=== PATIENT | female | born 1995 | race Caucasian/White ===

== ENCOUNTER → 2017-06-29 14:09 | Outpatient (CLI) | payer OTHER, SELFPAY ==
[2017-07-05 13:58] LABS: HPV Reflexed? NOT INDICATED
== END ==
PROVIDERS: Family Provider Family Medicine; PCP Family Medicine; Visit Provider Obstetrics & Gynecology
DX: Z12.4 Encounter for screening for malignant neoplasm of cervix (principal)
CPT/HCPCS: 88175; G0145

== ENCOUNTER → 2017-07-10 10:58 | Outpatient (CLI) | payer OTHER, SELFPAY ==
--- NOTE | 2017-07-10 11:21 | VDUE_ITS ---
Reason For Study: RUE swelling Right Proximal Right jugular vein is spontaneous, widely patent, phasic, with no intraluminal echogenicity noted. Right subclavian vein is spontaneous, widely patent, phasic, with no intraluminal echogenicity noted. Right Lower Arm Right radial vein is compressible. Right ulnar vein is compressible. Right Arm Right axillary vein is spontaneous, patent, phasic, competent, compressible and demonstrates augmentation. Right brachial vein is compressible. Right cephalic vein is compressible. Right basilic vein is compressible. < Interpretation Summary Deep veins of the right upper extremity are patent and compressible segmentally. There is no evidence of deep vein thrombosis. The superficial veins of the right upper extremity, the basilic and cephalic veins, are patent and compressible. There is no evidence of right upper extremity superficial thrombophlebitis involving the veins imaged. Ordering Physician: Tera Carson Performed By: Saniya Tiwari RVT
== END ==
PROVIDERS: Family Provider Family Medicine; PCP Family Medicine; Visit Provider Family Medicine
DX: M79.89 Other specified soft tissue disorders (principal)
CPT/HCPCS: 93971

== ENCOUNTER → 2017-07-12 09:23 | Outpatient (CLI) | payer OTHER, SELFPAY ==
--- NOTE | 2017-07-12 09:55 | RAD_ITS ---
STUDY: X-RAY CHEST REASON FOR EXAM: Female, 21 years old. Bilateral upper extremity swelling. TECHNIQUE: PA and lateral views of the chest. COMPARISON: None. FINDINGS: The lungs are clear and expanded. Scattered calcified granulomas. There is no demonstrated pleural abnormality. Normal size heart. Normal mediastinum and willard. Normal visualized pulmonary arteries. Normal visualized aortic arch and descending thoracic aorta. Normal visualized thoracic spine. Normal visualized ribs, clavicles, and shoulders. There is no demonstrated abnormality of the visualized soft tissue structures of the upper abdomen. RAD/Chest PA and Lateral IMPRESSION: Normal x-ray examination of the chest. Electronically Signed: Cosme Alford MD at 15:43 EST Tel [phone], Service support ,
[2017-07-12 12:21] LABS: Absolute Lymphocyte Count 1.93 X10^3/ul (0.83-4.51); Absolute Neutrophil Count 2.6 X10^3/uL (2.0-7.7); Basophil# 0.03 X10^3/uL; Basophil% 0.6 % (0-1); Eosinophil# 0.08 X10^3/uL; Eosinophils% 1.6 % (0-5); Hemoglobin 12.4 g/dl (12.0-15.0); Lymphocyte # 1.93 X10^3/ul (4.0); Lymphocyte % 39.1 % (19-41); Mean Corp Hgb Conc 32.6 g/gl (32-36); Mean Corpuscular Hgb 28.6 pg (27.0-32.0); Mean Corpuscular Volume 87.6 fL (81-99); Mean Platelet Vol. 10.5 fl (6.2-12.0); Monocyte% 6.1 % (0-10); Neutrophil # 2.58 X10^3/uL (2.7-7.7); Neutrophil % 52.4 % (47-70); Platelet Count 239 K/mm3 (150-450); RBC Distribution Width CV 13.2 % (11.6-14.6); RBC Distribution Width SD 40.9 fl (35.1-43.9); Red Blood Count 4.34 M/mm3 (4.2-5.4); White Blood Count 4.9 K/mm3 (4.4-11.0)
[2017-07-12 12:29] LABS: POSITIVE COUNT NO; POSITIVE DIFFERENTIAL NO; POSITIVE MORPHOLOGY NO
[2017-07-12 12:38] LABS: Erythrocyte Sedimentation Rate 9 mm/hr (0-20)
[2017-07-12 12:50] LABS: Vitamin D,25 Hydroxy 14.8 ng/mL (19.95-100.01)
[2017-07-12 13:00] LABS: Anion Gap 7 (5-15); BUN 23 mg/dL (7-18); BUN/Creat Ratio 30.3 RATIO (10-20); CPK Total, Creatine Kinase 1462 U/L (26-192); CRP < 2.90 mg/L (0.0-3.0); Calcium,Total 9.2 mg/dL (8.5-10.1); Chloride 104 mmol/L (98-107); Creatinine, Serum 0.76 mg/dL (0.55-1.02); EST Glomerular Filtration Rate 100 mL/min (>60); Est Glom Filt Rate - Afr Amer 121 mL/min (>60); Glucose 87 mg/dL (74-106); Sodium Level 139 mmol/L (136-145); Thyroid Stim Hormone (TSH) 1.62 uIU/mL (0.358-3.74)
[2017-07-13 15:01] LABS: ANTINUCLEAR ANTIBODIES DIRECT Negative (Negative)
== END ==
PROVIDERS: Family Provider Family Medicine; PCP Family Medicine; Visit Provider Family Medicine
DX: M79.89 Other specified soft tissue disorders (principal); M79.1 Myalgia
CPT/HCPCS: 71046; 80048; 82306; 82550; 84443; 85025; 85652; 86038; 86140

== ENCOUNTER → 2017-07-17 09:17 | Outpatient (CLI) | payer OTHER, SELFPAY ==
[2017-07-17 10:28] LABS: CPK Total, Creatine Kinase 147 U/L (26-192)
== END ==
PROVIDERS: Family Provider Family Medicine; PCP Family Medicine; Visit Provider Family Medicine
DX: R74.8 Abnormal levels of other serum enzymes (principal)
CPT/HCPCS: 36415; 82550

== ENCOUNTER → 2017-11-03 13:15 | Outpatient (CLI) | payer OTHER, SELFPAY ==
--- NOTE | 2017-11-03 13:15 | DT_ITS ---
This patient was seen during an EMR downtime October 30, 2017 - November 06, 2017. This patient may have a combination of paper and electronic documentation or all paper documentation. All documentation is viewable within the e-chart portion of [facility] for each patient visit.
[2017-11-07 13:14] LABS: Chlamydia Trachomatis by PCR Negative (Negative); Neisserai gonorrhoeae by PCR Negative (Negative); Probe Check PASS; Sample Adequacy Control PASS; Specimen Processing Control PASS
== END ==
PROVIDERS: Visit Provider Obstetrics & Gynecology
DX: Z11.3 Encounter for screening for infections with a predominantly sexual mode of transmission (principal)
CPT/HCPCS: 87491; 87591

== ENCOUNTER → 2017-11-14 11:55 | Outpatient (CLI) | payer OTHER, SELFPAY ==
[2017-11-14 13:56] LABS: Absolute Lymphocyte Count 1.61 X10^3/ul (0.83-4.51); Basophil# 0.01 X10^3/uL; Basophil% 0.1 % (0-1); Eosinophil# 0.06 X10^3/uL; Eosinophils% 0.8 % (0-5); Hematocrit 36.1 % (37-47); Hemoglobin 12.2 g/dl (12.0-15.0); Lymphocyte # 1.61 X10^3/ul (4.0); Lymphocyte % 22.6 % (19-41); Mean Corp Hgb Conc 33.8 g/gl (32-36); Mean Corpuscular Hgb 28.6 pg (27.0-32.0); Mean Corpuscular Volume 84.5 fL (81-99); Mean Platelet Vol. 10.5 fl (6.2-12.0); Monocyte# 0.43 X10^3/uL; Neutrophil # 5.01 X10^3/uL (2.7-7.7); Neutrophil % 70.4 % (47-70); Platelet Count 219 K/mm3 (150-450); RBC Distribution Width CV 12.9 % (11.6-14.6); RBC Distribution Width SD 39.1 fl (35.1-43.9); Red Blood Count 4.27 M/mm3 (4.2-5.4); White Blood Count 7.1 K/mm3 (4.4-11.0)
[2017-11-14 13:57] LABS: Color, Urine Yellow (Yellow); Glucose, Dipstick Normal (Normal); Ketone-Dipstick Negative (Negative); Leukocyte Esterase-Dipstick Negative /ul (Negative); Nitrite-Dipstick Negative (Negative); Occult Blood-Urine Negative /ul (Negative); POSITIVE COUNT NO; POSITIVE DIFFERENTIAL NO; POSITIVE MORPHOLOGY NO; Protein-Dipstick Negative (Negative); Urine Bilirubin Dipstick Negative (Negative); Urine Clarity Sl. Cloudy (Clear); Urine Urobilinogen Normal (Normal)
[2017-11-14 14:02] LABS: COTININE Drug Screen Negative (<200 ng/mL)
[2017-11-14 14:09] LABS: Amphetamine Urine VISTA NEGATIVE (<1000 ng/mL); Barbiturate Urine VISTA NEGATIVE (< 200 ng/mL); Benzodiazepine Urine VISTA NEGATIVE (< 200 ng/mL); Cocaine Urine VISTA NEGATIVE (< 300 ng/mL); Ecstacy Urine VISTA NEGATIVE (< 500 ng/mL); Methadone Urine VISTA NEGATIVE (< 300 ng/mL); PCP Urine VISTA NEGATIVE (< 25 ng/mL); THC Urine VISTA NEGATIVE (< 50 ng/mL); Vista UDS pH Range 6
[2017-11-14 14:15] LABS: Thyroid Stim Hormone (TSH) 0.35 uIU/mL (0.358-3.74)
[2017-11-15 09:45] LABS: HIV - WCH Non-Reactive (Nonreactive); Rubella IgG 230.4 IU/mL; Vitamin D,25 Hydroxy 24.8 ng/mL (29.95-100.01)
[2017-11-15 12:13] LABS: HEPATITIS B SURFACE AG Negative (Negative); Hep C Antibodies <0.1 s/co ratio (0.0-0.9)
[2017-11-17 03:47] LABS: Prenatal RPR NONREACTIVE (NONREACTIVE)
== END ==
PROVIDERS: Visit Provider Obstetrics & Gynecology
DX: Z34.81 Encounter for supervision of other normal pregnancy, first trimester (principal)
CPT/HCPCS: 36415; 80307; 81002; 82306; 84443; 85025; 86703; 86762; 86803; 87340

== ENCOUNTER → 2018-01-31 11:21 | Outpatient (CLI) | payer OTHER, SELFPAY | PROVIDERS: Family Provider Family Medicine; PCP Family Medicine; Visit Provider Obstetrics & Gynecology | DX: Z36.9 Encounter for antenatal screening, unspecified (principal) | CPT/HCPCS: 76805 ==

== ENCOUNTER → 2018-03-30 11:39 | Outpatient (CLI) | payer OTHER, SELFPAY ==
--- NOTE | 2018-03-30 11:41 | US_ITS ---
STUDY: SECOND AND THIRD TRIMESTER OBSTETRICAL ULTRASOUND - LIMITED REASON FOR EXAM: Female, 22 years old. Follow-up for renal dilatation. LMP: September 14, 2017. PRIOR ULTRASOUND: Comparison is made with prior ultrasound dated January 31, 2018. TECHNIQUE: Transabdominal TECHNICAL QUALITY: Adequate. FINDINGS: There is a single intrauterine fetus. The fetus is in a breech presentation. There is demonstrated cardiac activity with a heart rate of 146 bpm. There is a normal amniotic fluid volume. The largest amniotic fluid pocket measures 4.9 cm x 5.5 cm. The amniotic fluid index (DEANDRE) is 13.74 cm. The placenta is fundal in location. There are Grade 0 placental changes. The cervix measures 3.5 cm in length. BIOMETRY: BPD: 7.26 cm: 29 weeks, 1 days HC: 26.79 cm: 29 weeks, 2 days AC: 23.94 cm: 28 weeks, 2 days FL: 5.32 cm: 28 weeks, 2 days Age by LMP: 28 weeks, 1 days. CORDELIA by LMP: June 21, 2018. age by prior US: 29 weeks, 0 days. CORDELIA by prior US: June 15, 2018. age by current US: 28 weeks, 6 days. CORDELIA by current US: June 16, 2018. Estimated weight: 1220 grams, +/- 178 grams, 46 percentile. Gender: Female Once again, there is a mild degree of bilateral renal pelvis dilatation. It presently measures 3.8 mm on the left and 3.5 mm on the right. It previously measured 5 mm bilaterally. US/OB Limited With Biometrics IMPRESSION: Single live uterine gestation with mean gestational age of 29 weeks. The measurements obtained today fall within normal expected range. Mild residual bilateral renal pelvis dilatation. This as improved as compared to prior study. Electronically Signed: Cosme Alford MD at 8:20 EST Tel [phone], Service support ,
== END ==
PROVIDERS: Family Provider Family Medicine; PCP Family Medicine; Referring Provider Obstetrics & Gynecology; Visit Provider Obstetrics & Gynecology
DX: Z36.2 Encounter for other antenatal screening follow-up (principal)
CPT/HCPCS: 76816

== ENCOUNTER → 2018-04-02 08:59 | Outpatient (CLI) | payer OTHER, SELFPAY ==
[2018-04-02 10:40] LABS: Hematocrit 32.4 % (37-47); Hemoglobin 10.5 g/dl (12.0-15.0); Mean Corp Hgb Conc 32.4 g/gl (32-36); Mean Corpuscular Hgb 29.3 pg (27.0-32.0); Mean Corpuscular Volume 90.5 fL (81-99); Platelet Count 183 K/mm3 (150-450); RBC Distribution Width CV 13.2 % (11.6-14.6); RBC Distribution Width SD 43.3 fl (35.1-43.9); Red Blood Count 3.58 M/mm3 (4.2-5.4); White Blood Count 11.7 K/mm3 (4.4-11.0)
[2018-04-02 10:41] LABS: Glucose Challenge Gest 1H 50g 104 mg/dL (70-140)
[2018-04-02 10:48] LABS: Scan Indicated on CBC? Y/N NO
[2018-04-02 10:59] LABS: Vitamin D,25 Hydroxy 17.2 ng/mL (29.95-100.01)
[2018-04-02 16:49] LABS: Ferritin 23 ng/mL (8-252)
== END ==
PROVIDERS: Visit Provider Obstetrics & Gynecology
DX: Z34.83 Encounter for supervision of other normal pregnancy, third trimester (principal)
CPT/HCPCS: 36415; 82306; 82728; 82950; 85027

== ENCOUNTER → 2018-05-02 12:25 | Outpatient (CLI) | payer OTHER, SELFPAY ==
--- NOTE | 2018-05-02 12:29 | US_ITS ---
STUDY: SECOND AND THIRD TRIMESTER OBSTETRICAL ULTRASOUND - LIMITED REASON FOR EXAM: Female, 22 years old. Routine survey. LMP: September 14, 2017 PRIOR ULTRASOUND: Comparison is made with prior examination dated March 30, 2018 and January 31, 2018. TECHNIQUE: Transabdominal TECHNICAL QUALITY: Adequate. FINDINGS: There is a single intrauterine fetus. The fetus is in a cephalic presentation. There is demonstrated cardiac activity with a heart rate of 150 bpm. There is a normal amniotic fluid volume. The largest amniotic fluid pocket measures 4.5 cm. The amniotic fluid index (DEANDRE) is 9.4 cm. The placenta is fundal in location. There are Grade 1 placental changes. The cervix measures 3.1 cm in length. BIOMETRY: BPD: 8.76 cm: 35 weeks, 3 days HC: 31.55 cm: 35 weeks, 3 days AC: 28.63 cm: 32 weeks, 5 days FL: 6.36 cm: 33 weeks, 0 days Age by LMP: 32 weeks, 6 days. CORDELIA by LMP: Generate 2018. age by prior US: 33 weeks, 4 days. CORDELIA by prior US: June 16, 2018. age by current US: 34 weeks, 1 days. CORDELIA by current US: June 12, 2018. Estimated weight: 2149 grams, +/- 314 grams, 53 percentile. Gender: Indeterminant Stable bilateral pelvic dilatation. The right measures 3.9 mm and the left measures 3.8 mm. US/OB Limited With Biometrics IMPRESSION: Single live intrauterine gestation with a mean gestational age of 33 weeks and 4 days. The measurements obtained today following the normal expected range. Mild renal pelvic dilatation. Electronically Signed: Cosme Alford MD at 15:55 EST Tel [phone], Service support ,
== END ==
PROVIDERS: Family Provider Family Medicine; PCP Family Medicine; Referring Provider Obstetrics & Gynecology; Visit Provider Obstetrics & Gynecology
DX: Z36.3 Encounter for antenatal screening for malformations (principal)
CPT/HCPCS: 76816

== ENCOUNTER → 2018-05-31 13:49 | Outpatient (CLI) | payer OTHER, SELFPAY | PROVIDERS: Family Provider Family Medicine; PCP Family Medicine; Visit Provider Obstetrics & Gynecology | DX: Z36.85 Encounter for antenatal screening for Streptococcus B (principal) | CPT/HCPCS: 87081 ==

== ENCOUNTER 2018-06-21 19:05 | Inpatient (IN) | payer OTHER, SELFPAY ==
[2018-06-21] MEDS: Lactated Ringers 1,000 ML 50 ML IV ×2 (19:30→20:25)
[2018-06-21 19:39] VITALS: BMI 29.9
[2018-06-21 19:46] LABS: Hematocrit 34.3 % (37-47); Hemoglobin 11.3 g/dl (12.0-15.0); Mean Corp Hgb Conc 32.9 g/gl (32-36); Mean Corpuscular Hgb 29.7 pg (27.0-32.0); Mean Corpuscular Volume 90.3 fL (81-99); Mean Platelet Vol. 9.9 fl (6.2-12.0); Platelet Count 151 K/mm3 (150-450); RBC Distribution Width CV 13.5 % (11.6-14.6); RBC Distribution Width SD 44.2 fl (35.1-43.9); White Blood Count 13.3 K/mm3 (4.4-11.0)
[2018-06-21 19:49] LABS: Scan Indicated on CBC? Y/N NO
--- NOTE | 2018-06-21 19:55 | PCM.HP.OB ---
- Problem List (1) 40 weeks gestation of Status: Acute History Date of Admission: 06/21/18 Final CORDELIA: 06/21/18 Final CORDELIA Source: US <20 weeks Gestational age: 40 Weeks History of this : This is a 22 year-old, G [], P [], at 40 weeks gestational age. Allergies No Known Allergies Allergy (Verified 06/21/18 19:56) Home Medications: Home Medications Prenatabs FA 1 tab PO DAILY 09/19/16 Ferrous Sulfate 325 mg PO DAILY@0800 06/21/18 Docusate Sodium [Colace] 100 mg PO BID PRN PRN #60 capsule 06/22/18 Ibuprofen 600 mg PO TID PRN #30 tablet 06/22/18 multivitamin Smoking Status: Never smoker Alcohol: None Number of Fetus(es): 1 Heart Tracing: Category I TOCO Analysis: Contractions 4/10 min History Labs: Mom's Labs & Results 06/21/18 06/21/18 19:30 19:30 WBC 13.3 H RBC 3.80 L Hgb 11.3 L Hct 34.3 L MCV 90.3 MCH 29.7 MCHC 32.9 RDW 13.5 RDW Differential 44.2 H Plt Count 151 MPV 9.9 Blood Type B POSITIVE Antibody Screen NEGATIVE Course Did the patient receive Yes care? Labs Blood Type: B RH: POSITIVE RPR/VDRL/Syphilis Nonreactive Rubella status Immune HbSAg Negative Date Done: 11/14/17 Chlamydia Negative Gonorrhea Negative HIV/AIDS Non-Reactive Group B Strep: Negative Current Obstetrical History Gestational Diabetes No Incompetent Cervix No Infertility No IUGR No Macrosomia No Hypertension/Pre-eclampsia No Placenta Previa/Abruption No PTL/PROM No Uterine anomaly No Oligohydramnios No Polyhydramnios No Multiple gestation No Past Medical History Asthma No Diabetes No Hypertension No Heart disease No Mitral valve prolapse No Neurologic/Seizure disorder/ No Migraines Kidney disease No Liver disease No Varicosities No Clotting disorders/Hx of DVT No Thyroid Dysfunction No Other medical diseases No Psychiatric disorders No Major trauma No Abnormal PAP smear No Sleep apnea No Mammogram in the last 2 years No Social History Marital Status: Alleged father Arnie Hx Smoking No Smoking Status Never smoker How long have you used n/a substances (years)? Expected Infant Delivery Method: Spontaneous Vaginal Review of Systems HEENT: Denies: Visual Changes Cardiovascular: Denies: Chest Pain Respiratory: Denies: Shortness of Breath Gastrointestinal: Reports: Nausea Gynecological: Reports: - - + contractions, no leaking of fluid. Denies: Vaginal bleeding Neurological: Denies: Headaches Physical Exam Vitals: Vital Signs Temp Pulse Resp BP Pulse Ox 98.4 F 80 18 100/60 97 06/23/18 11:44 06/23/18 11:44 06/23/18 11:44 06/23/18 11:44 06/23/18 11:44 General: Alert, Oriented x3, Cooperative, No apparent distress HEENT: Atraumatic, Normocephalic Cardiovascular: Regular rate, Regular Rhythm Lungs: Clear to auscultation, Normal air movement Abdomen: Soft, Non Tender, Non-Distended, Gravid Extremities:: No edema Neurological: Neuro grossly intact BORDER MEASURER: Normal external genitalia Estimated gestational size: Appropriate for gestational size Presentation: Cephalic Cervix Dilation (cm): 5 Station: -3 Effacement (%): 80 Assessment/Plan All Active Problems 40 weeks gestation of (Acute) (spontaneous vaginal delivery) (Acute) 22yo admitted in labor, Cat I FHR -Expectant management -Epidural per patient request
[2018-06-21] MEDS: fentaNYL-bupivacaine (epidural) 100 ML BAG EPIDURAL (20:33)
--- NOTE | 2018-06-21 20:54 | PCM.PN.BLA ---
Progress Note LABOR PROGRESS NOTE Comfortable with epidural. AVSS GEN - NAD, AAO x 3 FHR 135, moderate variability, + accelerations, no decelerations TOCO 2-3/10 min SVE 8/90/-1, cephalic, ROP A/P:22yo @ 40wga in active labor, Cat I FHR -Amniotomy performed with pink tinged fluid -Maternal and statuses reassuring -Continue in labor
[2018-06-21] MEDS: Ondansetron 4 MG/2 ML Vial IV (23:52)
[2018-06-22] MEDS: Oxytocin 30 units/NS 500 ml 30 UNITS/500 ML IV.SOLN 334 UNITS IV (00:08)
--- NOTE | 2018-06-22 00:14 | PCM.OB.VAG ---
- Problem List (1) 40 weeks gestation of Status: Acute (2) (spontaneous vaginal delivery) Status: Acute Vaginal Delivery Maternal Presentation: Active Labor Amniotic Membrane Rupture Type: Artificial Rupture of Membrane time: 204806/21/18 Amniotic Fluid Description: Clear Final CORDELIA: 06/21/18 Final CORDELIA Source: US <20 weeks Gestational age: 40 Weeks and 1 Days Date of Procedure: 06/22/18 Pre-Operative Diagnosis: 40 1/7wga Post-Operative Diagnosis: 40 1/7wga Surgery/ Procedure Performed: Spontaneous Vaginal Delivery Anesthesiologist: Bee Shaikh Type of Anesthesia: Epidural Description of Procedure: Patient was FD/+3 station with Cat II FHR with moderate variability. She pushed over approximately 20 minutes to deliver a vigorous female infant in BRITANY over and intact perineum. The was placed on the maternal abdomen and further attended by nursery personnel. The cord was doubly clamped and cut at approximately 5 minutes of life. The placenta delivered spontaneously and appeared intact on inspection. Perineum intact. Sponge count correct. Presentation: Vertex Placental Delivery Description: Spontaneous Placenta Disposition: [facility] Cord Vessel Description: 3 Vessels Nuchal Cord Compression: Without compression Cord Entanglement: None Drain: Noe to straight drain Estimated Blood Loss: 100 ml A gender: Female (1 minute): 9 (5 minute): 9 Episiotomy Description: None Laceration: None Medications given after delivery: IV Pitocin
--- NOTE | 2018-06-22 00:20 | DCINST_ITS ---
Discharge Diet: No Restrictions Discharge Activity: Return to Normal Activity, May Shower May resume sexual activity in: 4-6 weeks Lifting Restrictions: 20 lb Call your doctor if you observe: Fever of 101 or Higher, Inability to urinate, Inability to have a bowel movement, Using more than one pad per hour, Shortness of breath, Calf discomfort, Uncontrolled pain Additional Instructions: If you experience any of the following, contact your healthcare provider. * Bleeding that soaks a pad every hour for 2 hours * Fever 100.4 or higher * Unrelieved incision or abdominal pain * Swelling, redness, discharge or bleeding from your incision or episiotomy site * Your incision begins to separate * Problems urinating (including inability to urinate or burning while urinating). * Visual changes * Severe headache * Flu-like symptoms * Pain or redness in one of both of your breasts * Pain, warmth, tenderness or swelling in your legs, especially the calf area * Frequent nausea and vomiting * Symptoms of depression or anxiety If you experience any of the following, call 911 or go to the nearest Emergency Room. * Chest pain * Problems breathing * Seizure activity * Partial or complete paralysis of a body part, slurred speech, weakness or drooping of the face, or a sudden inability to walk or hold your balance Allergies/Adverse Reactions: Allergies No Known Allergies Allergy (Verified 06/21/18 19:56) Medications to take at Discharge Prenatabs FA 1 tab PO DAILY 09/19/16 Ferrous Sulfate 325 mg PO DAILY@0800 06/21/18 Docusate Sodium [Colace] 100 mg PO BID PRN PRN #60 capsule 06/22/18 Ibuprofen 600 mg PO TID PRN #30 tablet 06/22/18 The following prescriptions were given: Docusate Sodium [Colace] 100 mg PO BID PRN PRN #60 capsule PRN Reason: Constipation Ibuprofen 600 mg PO TID PRN #30 tablet PRN Reason: Pain Please Follow Up With: Rachelle Hoffman MD When: 6 weeks Primary Care Physician: Moy Carson MD [Primary Care Provider] - Test Results: Test results from this visit will be discussed in further detail at your follow- up appointment, if applicable.
[2018-06-22] MEDS: Oxytocin 30 units/NS 500 ml 30 UNITS/500 ML IV.SOLN 167 UNITS IV (00:38)
[2018-06-22 05:00] VITALS: BP 114/67; PULSE 88; RESP 16; TEMP 37.1
[2018-06-22 08:20] VITALS: BP 121/72; PULSE 73; RESP 14; TEMP 36.6; O2SAT 99
[2018-06-22] MEDS: Prenatal Vits Tablet 1 TABLET PO (08:20)
[2018-06-22] MEDS: Ibuprofen 600 MG Tablet PO ×2 (08:20→20:31)
--- NOTE | 2018-06-22 08:20 | PCM.PN.OB ---
Patient Problems: Active and Suspected Problems 40 weeks gestation of (Acute) Subjective: Slept a bit last night. Infant latched well. Denies significant pain. Has moderate lochia. Objective: AVSS - Physical Exam General: Alert, Oriented x3, Cooperative, No apparent distress HEENT: Atraumatic, Normocephalic Lungs: Clear to auscultation, Normal air movement Cardiovascular: Regular rate, Regular Rhythm, Normal S1, Normal S2 Abdomen: Soft, Non Tender, Non-Distended, - - Fundus firm and nontender Extremities: No edema, No Calf Tenderness Neurological: Neuro grossly intact Psych/Mental Status: Normal Affect, Appropriate, Alert and oriented to time, place, person, mood and affect Vital Signs Temp Pulse Resp BP 98.7 F 88 16 114/67 06/22/18 05:00 06/22/18 05:00 06/22/18 05:00 06/22/18 05:00 Oxygen Delivery Method Room Air Weight: 76.7 kg Body Mass Index (BMI) 29.9 Laboratory Tests Past 24 Hrs 06/21/18 06/21/18 19:30 19:30 WBC 13.3 H RBC 3.80 L Hgb 11.3 L Hct 34.3 L MCV 90.3 MCH 29.7 MCHC 32.9 RDW 13.5 RDW Differential 44.2 H Plt Count 151 MPV 9.9 Blood Type B POSITIVE Antibody Screen NEGATIVE Medical Necessity - Tobacco Use Smoking Status: Never smoker Assessment/Plan All Active Problems 40 weeks gestation of (Acute) (spontaneous vaginal delivery) (Acute) 22yo s/p early this am doing well. -Rh positive - -Routine care
[2018-06-22] MEDS: Senna/Docusate Sodium 1 Tablet PO (08:21)
[2018-06-22 12:00] VITALS: BP 109/53; PULSE 68; RESP 16; TEMP 36.6; O2SAT 97
[2018-06-22 16:10] VITALS: BP 110/55; PULSE 67; RESP 16; TEMP 36.6; O2SAT 96
--- NOTE | 2018-06-22 16:10 | NURSING ---
pt using lasinoh cream prn for tender nipples
[2018-06-22 20:21] VITALS: BP 124/49; PULSE 58; RESP 18; TEMP 37; O2SAT 96
[2018-06-23 00:29] VITALS: BP 117/59; PULSE 58; RESP 16; TEMP 36.6; O2SAT 96
[2018-06-23 03:20] VITALS: BP 111/58; PULSE 81; RESP 18; TEMP 36.2; O2SAT 98
[2018-06-23] MEDS: Prenatal Vits Tablet 1 TABLET PO (07:21)
[2018-06-23] MEDS: Ibuprofen 600 MG Tablet PO (07:21)
[2018-06-23] MEDS: Senna/Docusate Sodium 1 Tablet PO (07:22)
[2018-06-23 07:26] VITALS: BP 97/61; PULSE 81; RESP 16; TEMP 36.8; O2SAT 96
--- NOTE | 2018-06-23 10:06 | PN.OBGYN_ITS ---
Patient Problems: Active and Suspected Problems 40 weeks gestation of (Acute) Subjective: PPD#1 Doing well today, Minimal pain Nursing well. Would like to go home today if possible. Objective: sitting up in bed nursing baby - Physical Exam General: Alert, Oriented x3, Cooperative, No apparent distress HEENT: Atraumatic Neurological: Cranial nerves II-XII grossly intact Psych/Mental Status: Normal Affect Vital Signs Temp Pulse Resp BP Pulse Ox 98.3 F 81 16 97/61 96 06/23/18 07:26 06/23/18 07:26 06/23/18 07:26 06/23/18 07:06/23/18 07:26 Oxygen Delivery Method Room Air Weight: 76.7 kg Body Mass Index (BMI) 29.9 Intake and Output for Last 24 Hours 06/21/18 06/22/18 06/23/18 23:59 23:59 23:59 Output Total 650 / 650 Balance -650 / -650 Medical Necessity - Tobacco Use Smoking Status: Never smoker Assessment/Plan All Active Problems 40 weeks gestation of (Acute) (spontaneous vaginal delivery) (Acute) PPD#1 Stable pp. Requests dischg to home today. Dischg home. RTO in 6 wk for postpa rtum check, prn sooner.
[2018-06-23 11:44] VITALS: BP 100/60; PULSE 80; RESP 18; TEMP 36.9; O2SAT 97
--- NOTE | 2018-06-28 16:34 | NURSING ---
Unable to leave a voicemail. Candice JANE
== END 2018-06-23 12:40 | disposition home or self-care (01) | DRG 807 ==
LOC: WPOUT 19:33
PROVIDERS: Admitting Provider Obstetrics & Gynecology; Family Provider Family Medicine; PCP Family Medicine; Referring Provider Obstetrics & Gynecology; Visit Provider Obstetrics & Gynecology
DX: O99.013 Anemia complicating pregnancy, third trimester (principal); Z37.0 Single live birth; D50.9 Iron deficiency anemia, unspecified; Z3A.40 40 weeks gestation of pregnancy
CPT/HCPCS: 59025; 59050; 85027; 86850; 86900; 99218; J7120; G0378; J2405

== ENCOUNTER → 2018-07-31 08:31 | Outpatient (CLI) | payer OTHER, SELFPAY ==
--- NOTE | 2018-07-31 08:35 | US_ITS ---
STUDY: ABDOMINAL ULTRASOUND REASON FOR EXAM: Female, 22 years old. Abdominal pain and weight loss TECHNIQUE: Transabdominal ultrasound was performed with real-time and static rae scale imaging. TECHNICAL QUALITY: Adequate. COMPARISON: None. FINDINGS: Liver: The liver measures 15.2 cm. There is normal echogenicity of the liver. The bile ducts are within normal limits. There is no demonstrated mass lesion. Portal vein measurement: Gallbladder: Normal distended gallbladder. The gallbladder wall measures 1.4 mm. There is a negative sonographic Zepeda's sign. There is no pericholecystic fluid. There are no gallstones. Common Bile Duct (C.B.D.): The common bile duct measures 2.2 mm. Pancreas: Normal size of the head, body and tail of the pancreas. There is normal echogenicity of the pancreas. There is no demonstrated pancreatic mass or cyst. Right Kidney: Normal size of the right kidney. The right kidney measures 10.8 x 5.4 x 4.8 cm. Normal renal cortex. The right cortex measures 1.8 cm. There is no demonstrated renal mass or cyst. There is no right hydronephrosis. Multiple images of the umbilical region were obtained. No focal masses or fluid collections are identified. US/Abdomen Limited IMPRESSION: Gallbladder and common bile duct are unremarkable. No focal lesions are identified near the umbilicus. Electronically Signed: Kehinde Ken MD at 23:55 EST Tel , Service support ,
== END ==
PROVIDERS: Family Provider Family Medicine; PCP Family Medicine; Referring Provider Obstetrics & Gynecology; Visit Provider Obstetrics & Gynecology
DX: R10.9 Unspecified abdominal pain (principal)
CPT/HCPCS: 76705

== ENCOUNTER → 2019-10-18 11:06 | Outpatient (CLI) | payer OTHER, SELFPAY ==
[2019-10-18 11:53] LABS: Color, Urine Yellow (Yellow); Glucose, Dipstick Normal (Normal); Ketone-Dipstick Negative (Negative); Leukocyte Esterase-Dipstick Negative /ul (Negative); Nitrite-Dipstick Negative (Negative); Occult Blood-Urine Negative /ul (Negative); Protein-Dipstick Negative (Negative); Specific Gravity, Urine 1.015 (1.002-1.030); Urine Bilirubin Dipstick Negative (Negative); Urine Clarity Clear (Clear); Urine Urobilinogen Normal (Normal)
[2019-10-18 11:57] LABS: Absolute Lymphocyte Count 1.74 X10^3/uL (0.83-4.51); Absolute Neutrophil Count 4.8 X10^3/uL (2.0-7.7); Basophil# 0.03 X10^3/uL; Basophil% 0.4 % (0-1); Eosinophil# 0.04 X10^3/uL; Eosinophils% 0.6 % (0-5); Hematocrit 36.9 % (37-47); Lymphocyte # 1.74 X10^3/ul (4.0); Lymphocyte % 24.2 % (19-41); Mean Corp Hgb Conc 32.5 g/dL (32-36); Mean Corpuscular Hgb 28.5 pg (27.0-32.0); Mean Corpuscular Volume 87.6 fL (81-99); Mean Platelet Vol. 10.7 fl (6.2-12.0); Monocyte# 0.53 X10^3/uL; Monocyte% 7.4 % (0-10); NRBC Flagged by Analyzer 0 % (0-5); Neutrophil # 4.84 X10^3/uL (2.7-7.7); Neutrophil % 67.1 % (47-70); Platelet Count 208 K/mm3 (150-450); RBC Distribution Width CV 12.2 % (11.6-14.6); RBC Distribution Width SD 39.1 fl (35.1-43.9); Red Blood Count 4.21 M/mm3 (4.2-5.4); White Blood Count 7.2 K/mm3 (4.4-11.0)
[2019-10-18 12:01] LABS: Amphetamine Urine VISTA NEGATIVE (<1000 ng/mL); Barbiturate Urine VISTA NEGATIVE (< 200 ng/mL); Benzodiazepine Urine VISTA NEGATIVE (< 200 ng/mL); Cocaine Urine VISTA NEGATIVE (< 300 ng/mL); Ecstacy Urine VISTA NEGATIVE (< 500 ng/mL); Methadone Urine VISTA NEGATIVE (< 300 ng/mL); PCP Urine VISTA NEGATIVE (< 25 ng/mL); THC Urine VISTA NEGATIVE (< 50 ng/mL); Vista UDS pH Range 7
[2019-10-18 12:12] LABS: Thyroid Stim Hormone (TSH) 0.54 uIU/mL (0.358-3.74)
[2019-10-18 12:45] LABS: HIV - WCH Non-Reactive (Nonreactive); Hepatitis B Surface Antigen Non-Reactive (Nonreactive); Hepatitis C Antibody Non-Reactive (Nonreactive); Rubella IgG 280.4 IU/mL; Vitamin D,25 Hydroxy 30.6 ng/mL
[2019-10-18 14:19] LABS: Chlamydia Trachomatis by PCR Negative (Negative); Neisserai gonorrhoeae by PCR Negative (Negative); Probe Check PASS; Sample Adequacy Control PASS; Specimen Processing Control PASS
[2019-10-24 03:36] LABS: Prenatal RPR NONREACTIVE (NONREACTIVE)
== END ==
PROVIDERS: PCP Family Medicine; Visit Provider Obstetrics & Gynecology
DX: Z11.3 Encounter for screening for infections with a predominantly sexual mode of transmission (principal); Z34.81 Encounter for supervision of other normal pregnancy, first trimester
CPT/HCPCS: 36415; 80307; 81002; 82306; 84443; 85025; 86703; 86762; 86803; 87340; 87491; 87591

== ENCOUNTER 2019-11-01 20:04 | Emergency (ER) | payer OTHER, SELFPAY ==
[2019-11-01 20:05] VITALS: BP 131/73; PULSE 70; RESP 18; TEMP 36.8; O2SAT 100; BMI 24.4
--- NOTE | 2019-11-01 20:51 | US_ITS ---
STUDY: FIRST TRIMESTER OBSTETRICAL ULTRASOUND REASON FOR EXAM: Female, 24 years old BLEEDING AT 9 WEEKS LMP: 08/26/2019 TECHNIQUE: Transvaginal TECHNICAL QUALITY: Adequate. PRIOR ULTRASOUND: Previous study of 05/02/2018 FINDINGS: There is visualization of a single gestational sac in a normal intrauterine position. The mean sac diameter (MSD) measures 4.31, indicating an estimated gestational age (EGA) of 10 weeks, 0 days. The gestational sac shape is within normal limits. There are 2 avascular anechoic regions adjacent to the gestational sac measuring 2.5 x 3.1 x 0.9 cm and 3.4 x 2.9 x 1.1 cm. There is a visualized yolk sac. The yolk sac measures 4.6 mm. The placenta is non-visualized. There is visualization of a live embryo. The crown-rump length (CRL) measures 3.32 cm, indicating an estimated gestational age (EGA) of 10 weeks, 2 days. There is demonstrated cardiac activity with a heart rate of 170 bpm. The estimated gestation age (EGA) by LMP is 9 weeks, 4 days. The estimated date of delivery (CORDELIA) by LMP is 06/01/2020. The estimated gestation age (EGA) by US is 10 weeks, 1 days. The estimated date of delivery (CORDELIA) by US is 05/28/2020. The uterus measures 12.6 x 9.9 x 6.2 cm.. There is no demonstrated uterine fibroid. The cervix is closed. The right ovary was not visualized. The left ovary measures 3.5 x 2.3 x 1.8 cm.. There is a left ovarian cyst measuring 2.1 x 1.6 x 1.3 cm. There is no visualized left adnexal mass or complex lesion. There is no fluid in the cul de sac. US/Transvaginal w/Preg US IMPRESSION: Single viable intrauterine of approximately 10 weeks 2 days gestational age by crown-rump length measurement. A heart rate of 170 bpm is noted. There are 2 anechoic avascular regions adjacent to the gestational sac measuring 2.5 x 3.1 x 0.9 cm and 3.4 x 2.9 x 1.1 cm respectively which may represent subchorionic bleeds. There is a left ovarian cyst measuring 2.1 x 1.6 x 1.3 cm. Electronically Signed: Jonatan Mccloud MD at 21:54 EDT , Service support ,
[2019-11-01 20:59] LABS: Mucous, Urine 0 SEEN /hpf (<or=2+)
[2019-11-01 21:01] LABS: Absolute Lymphocyte Count 2.42 X10^3/uL (0.83-4.51); Absolute Neutrophil Count 5.4 X10^3/uL (2.0-7.7); Basophil# 0.02 X10^3/uL; Basophil% 0.2 % (0-1); Eosinophil# 0.08 X10^3/uL; Eosinophils% 0.9 % (0-5); Hematocrit 34.1 % (37-47); Hemoglobin 11.3 g/dL (12.0-15.0); Lymphocyte # 2.42 X10^3/ul (4.0); Lymphocyte % 28.5 % (19-41); Mean Corp Hgb Conc 33.1 g/dL (32-36); Mean Corpuscular Volume 87.7 fL (81-99); Mean Platelet Vol. 10.2 fl (6.2-12.0); Monocyte# 0.52 X10^3/uL; Monocyte% 6.1 % (0-10); NRBC Flagged by Analyzer 0 % (0-5); Neutrophil # 5.44 X10^3/uL (2.7-7.7); Neutrophil % 64.1 % (47-70); Platelet Count 218 K/mm3 (150-450); RBC Distribution Width CV 12.5 % (11.6-14.6); RBC Distribution Width SD 39.3 fl (35.1-43.9); Red Blood Count 3.89 M/mm3 (4.2-5.4); White Blood Count 8.5 K/mm3 (4.4-11.0)
[2019-11-01] MEDS: 0.9% Normal Saline 1,000 ML 1000 ML IV (21:01)
--- NOTE | 2019-11-01 21:02 | ED.VISSUMM ---
- ER Visit Summary Date of Service: 11/01/19 Chief Complaint: Vaginal bleeding History of Present Illness: The patient is a 24 F who presents with vaginal bleeding that began tonight. Patient states that when she urinated tonight she started passing some blood. Patient denies passing any clots or tissue. Patient states she was having some mild intermittent cramping but states this has resolved. Patient is approximately 9 weeks . Patient is 3 para 2. Patient does not know her blood type. Patient denies any fevers or chills. Patient denies any dysuria. Patient denies any back pain. Patient admits to some nausea and vomiting related to the but denies any worsening nausea or vomiting. Physical Examination: Vital signs are stable. Patient is afebrile. Patient is in no acute distress. Oral mucosa is pink and moist. Neck is supple. Trachea is midline. There is no JVD noted. Heart was regular rate and rhythm. Lungs are clear and equal bilaterally. Abdomen is soft. Bowel sounds are normal. There is no tenderness. There is no rebound or guarding noted. Skin is warm dry. Cranial nerves II through XII are intact. There are no focal motor or sensory deficits noted. Extremities are intact. There is no calf tenderness or edema. Test Results: CBC showed a hemoglobin of 11.3 hematocrit 34.1. Urinalysis showed bloody urine with occult blood of 250 and greater than 100 red blood cells. There is no evidence of urinary tract infection. Quantitative hCG was 17883. Blood type was B+. Pelvic ultrasound showed single viable intrauterine at 10 weeks 2 days with a heart rate of 170. There are 2 anechoic regions adjacent to the gestational sac which may represent subchorionic bleeds. There is also a left ovarian cyst. This was interpreted by the radiologist and reviewed by myself. Emergency Department Course and Treatment: Patient was feeling better on reevaluation. Patient was still having some bleeding but states it is somewhat improving. Patient was advised to return if she is passing any tissue or clots. Patient was instructed return if she is saturating more than 2 pads an hour. Patient was instructed to have pelvic rest. Patient was instructed to follow-up with Dr. Shaquille Powers in 3 to 5 days. Patient understood and was agreeable with the plan. All questions were answered. Disposition: Discharge home Impression: Threatened This note was generated with Dragon dictation software. It may contain incorrect words, spelling, and punctuation that were not noted in review of the chart prior to signing ED Disposition - Plan for ED Patient: Disposition: Home or Assisted Living Diagnosis: Threatened spontaneous Instructions: ED Possible Miscarriage Threatened Referrals: Moy Carson MD [Primary Care Provider] - Rachelle Steve MD [STAFF PHYSICIAN] - 3-5 Days
[2019-11-01 21:11] LABS: Color, Urine Red (Yellow); Glucose, Dipstick Normal (Normal); Ketone-Dipstick 5 mg/dl (Negative); Leukocyte Esterase-Dipstick Negative /ul (Negative); Nitrite-Dipstick Negative (Negative); Occult Blood-Urine 250 /ul (Negative); Protein-Dipstick 500 mg/dl (Negative); Specific Gravity, Urine 1.015 (1.002-1.030); Urine Bilirubin Dipstick Negative (Negative); Urine Clarity Cloudy (Clear); Urine Urobilinogen Normal (Normal)
[2019-11-01 21:18] LABS: White Blood Cells 5-10 SEEN /hpf (0-5)
[2019-11-01 21:19] LABS: Bacteria RARE /hpf (None Seen); Red Blood Cells-Urine > 100 SEEN /hpf (0-5); Squamous Epithelial Cells - UA 0-5 SEEN /hpf (5-10)
[2019-11-01 21:40] LABS: hCG Titer Quant., Serum 51398 mIU/mL (1-3)
[2019-11-01 23:34] VITALS: BP 102/66; PULSE 69; RESP 18; O2SAT 100
== END 2019-11-01 23:35 | disposition home or self-care (01) ==
PROVIDERS: Emergency Provider Emergency Medicine; PCP Family Medicine
DX: O20.0 Threatened abortion (principal); N83.202 Unspecified ovarian cyst, left side; Z3A.10 10 weeks gestation of pregnancy; O21.9 Vomiting of pregnancy, unspecified
CPT/HCPCS: 76817; 81001; 84702; 85025; 86900; 86901; 96360; 99283; J7030; A4216

== ENCOUNTER → 2019-12-16 07:56 | Outpatient (CLI) | payer OTHER, SELFPAY ==
--- NOTE | 2019-12-16 08:00 | US_ITS ---
STUDY: SECOND AND THIRD TRIMESTER OBSTETRICAL ULTRASOUND-Limited REASON FOR EXAM: Female, 24 years old followup- bleeding LMP: 08/26/2019 TECHNIQUE: Transabdominal TECHNICAL QUALITY: Adequate. PRIOR ULTRASOUND: 11/01/2019 FINDINGS: There is a single intrauterine fetus. The fetus is in a transverse lie with the head on the maternal right side. There is demonstrated cardiac activity with a heart rate of 147 bpm. There is a normal amniotic fluid volume. The largest amniotic fluid pocket measures 3.4 cm. The placenta is posterior in location and is not low lying. There are Grade 0 placental changes. The cervix measures 3.9 cm in length. The bilateral adnexal regions are normal. BIOMETRY: BPD: 3.5 cm: 16 weeks, 4 days HC: 13 cm: 16 weeks, 4 days AC: 10.9 cm: 16 weeks, 5 days FL: 2.3 cm: 16 weeks, 5 days age by current US: 16 weeks, 4 days. CORDELIA by current US: 05/28/2020. Estimated weight: 167 grams, +/- 25 grams, 78 %. age by prior US: 16 weeks, 4 days. CORDELIA by prior US: 05/28/2020. Age by LMP: 16 weeks, 0 days. CORDELIA by LMP: 06/01/2020. Incidental note made of a hypoechoic area along the anterior gestational sac/uterus measuring 5.8 x 5.0 x 1.0 cm likely resolving subchorionic hemorrhage. US/OB Limited With Biometrics IMPRESSION: Single live intrauterine at 16 weeks, 4 days by current ultrasound with CORDELIA of 05/28/2020. Heart rate of 147 bpm. Normal growth noted since the previous study. Likely resolving 5.8 x 5.0 x 1.0 cm subchorionic hemorrhage along the anterior gestational sac. Continued close follow-up recommended to assure resolution Electronically Signed: Gatito Epperson MD at 9:09 EDT , Service support ,
== END ==
PROVIDERS: PCP Family Medicine; Referring Provider Obstetrics & Gynecology; Visit Provider Obstetrics & Gynecology
DX: O26.859 Spotting complicating pregnancy, unspecified trimester (principal); Z3A.16 16 weeks gestation of pregnancy
CPT/HCPCS: 76816

== ENCOUNTER → 2020-01-13 12:51 | Outpatient (CLI) | payer OTHER, SELFPAY ==
--- NOTE | 2020-01-13 12:55 | US_ITS ---
STUDY: SECOND AND THIRD TRIMESTER OBSTETRICAL ULTRASOUND REASON FOR EXAM: Female, 24 years old ANATOMY LMP: 08/26/2019 TECHNIQUE: Transabdominal TECHNICAL QUALITY: Adequate. PRIOR ULTRASOUND: 12/16/2019 FINDINGS: There is a single intrauterine fetus. The fetus is moving during the exam. There is demonstrated cardiac activity with a heart rate of 135 bpm. There is a normal amniotic fluid volume. The largest amniotic fluid pocket measures 5.8 cm. . The placenta is posterior in location and is not low lying. There are Grade 1 placental changes. The cervix measures 3.3 cm in length. The bilateral adnexal regions are normal. BIOMETRY: BPD: 4.43 cm: 19 weeks, 2 days HC: 17.66 cm: 20 weeks, 1 days AC: 15.72 cm: 20 weeks, 6 days FL: 3.26 cm: 20 weeks, 1 days age by current US: 20 weeks, 0 days. CORDELIA by current US: 06/01/2019. Estimated weight: 355 grams, +/- 53 grams, 63 %. age by prior US: 20 weeks, 4 days. CORDELIA by prior US: 05/28/2020. Stable known subchorionic hemorrhage measuring 6.1 x 4.7 x 0.3 cm. ANATOMY: Gender: Male Cranium: Normal lateral ventricles. Normal choroid plexus. Normal cerebellum. Normal cisterna magna. Normal face, nose and lips. Chest: Normal 4-chamber heart. Abdomen/Pelvis: Normal diaphragm. Normal stomach. Normal abdominal wall. Normal cord insertion. Normal 3 vessel cord. Normal kidneys. Right renal pelvis measures 2.4 mm, left 3.0 mm Normal bladder. Spine: Normal cervical spine. Normal thoracic spine. Normal lumbar spine. Normal sacrum. Extremities: Normal bilateral upper extremities. Normal bilateral lower extremities. US/OB Anatomy Scan IMPRESSION: Single live intrauterine at 20 weeks, 0 days by current ultrasound CORDELIA of 06/01/2020. Heart rate at 135 bpm. No new suspicious findings. There is a known anterior uterine wall hematoma measuring 6.1 x 4.7 x 0.3 cm. Electronically Signed: Gatito Epperson MD at 15:40 EDT , Service support ,
== END ==
PROVIDERS: PCP Family Medicine; Referring Provider Obstetrics & Gynecology; Visit Provider Obstetrics & Gynecology
DX: Z34.82 Encounter for supervision of other normal pregnancy, second trimester (principal)
CPT/HCPCS: 76805

== ENCOUNTER 2020-02-25 08:02 | Outpatient (RCR) | payer OTHER, SELFPAY | END 2020-02-26 23:59 | LOC: EMPH 08:02 | PROVIDERS: PCP Family Medicine; Visit Provider Family Medicine Geriatric Medicine | DX: Z11.59 Encounter for screening for other viral diseases (principal) | CPT/HCPCS: 87635; U0003 ==

== ENCOUNTER → 2020-03-09 07:58 | Outpatient (CLI) | payer OTHER, SELFPAY ==
--- NOTE | 2020-03-09 08:00 | US_ITS ---
STUDY: SECOND AND THIRD TRIMESTER OBSTETRICAL ULTRASOUND REASON FOR EXAM: Female, 24 years old GROWTH LMP: 08/26/2019. TECHNIQUE: Transabdominal TECHNICAL QUALITY: Adequate. PRIOR ULTRASOUND: Comparison is made with prior examination dated 01/13/2020. FINDINGS: There is a single intrauterine fetus. The fetus is in a cephalic presentation. There is demonstrated cardiac activity with a heart rate of 147 bpm. There is a normal amniotic fluid volume. The largest amniotic fluid pocket measures 3.0 cm. The amniotic fluid index (DEANDRE) is 9.8 cm. The placenta is posterior in location and is not low lying. There are Grade 1 placental changes. The cervix measures 3.2 cm in length. The bilateral adnexal regions are normal. The previously seen anterior uterine wall hematoma is not seen at this time. BIOMETRY: BPD: 7.4 cm: 29 weeks, 4 days HC: 27.4 cm: 29 weeks, 6 days AC: 23.5 cm: 27 weeks, 5 days FL: 5.2 cm: 27 weeks, 4 days CI: 80% FL/BPD: 70% FL/HC: FL/AC: 22% HC/AC: 1.17 age by current US: 28 weeks, 4 days. CORDELIA by current US: 05/28/2020. Estimated weight: 1169 grams, +/- 173 grams, 35 %. age by prior US: 28 weeks, 0 days. CORDELIA by prior US: 06/01/2020. Age by LMP: 28 weeks, 0 days. CORDELIA by LMP: 06/01/2020. ANATOMY: Gender: Male Cranium: Normal lateral ventricles. Normal choroid plexus. Normal cerebellum. Normal cisterna magna. Normal face, nose and lips. Chest: Normal 4-chamber heart. Abdomen/Pelvis: Normal diaphragm. Normal stomach. Normal abdominal wall. Normal cord insertion. Normal 3 vessel cord. There is evidence of a nuchal umbilical cord. Minimal fullness of the renal pelves measuring 3 mm. Normal bladder. Spine: Normal cervical spine. Normal thoracic spine. Normal lumbar spine. Normal sacrum. Extremities: Normal bilateral upper extremities. Normal bilateral lower extremities. US/OB Limited With Biometrics IMPRESSION: Single live intrauterine gestation with mean gestational age of 28 weeks. The measurements obtained today following within the normal expected range. Electronically Signed: Cosme Alford, at 15:05 EDT , Service support ,
== END ==
PROVIDERS: PCP Family Medicine; Referring Provider Obstetrics & Gynecology; Visit Provider Obstetrics & Gynecology
DX: O46.90 Antepartum hemorrhage, unspecified, unspecified trimester (principal); Z3A.28 28 weeks gestation of pregnancy
CPT/HCPCS: 76816

== ENCOUNTER → 2020-03-13 08:54 | Outpatient (CLI) | payer OTHER, SELFPAY ==
[2020-03-13 11:24] LABS: Hematocrit 33.2 % (37-47); Hemoglobin 10.6 g/dL (12.0-15.0); Mean Corp Hgb Conc 31.9 g/dL (32-36); Mean Corpuscular Hgb 29.7 pg (27.0-32.0); Mean Platelet Vol. 10.2 fl (6.2-12.0); Platelet Count 159 K/mm3 (150-450); RBC Distribution Width CV 12.9 % (11.6-14.6); RBC Distribution Width SD 43.9 fl (35.1-43.9); Red Blood Count 3.57 M/mm3 (4.2-5.4); White Blood Count 7.9 K/mm3 (4.4-11.0)
[2020-03-13 11:29] LABS: Glucose Challenge Gest 1H 50g 97 mg/dL (70-140)
[2020-03-13 11:37] LABS: Vitamin D,25 Hydroxy 37.6 ng/mL
== END ==
PROVIDERS: PCP Family Medicine; Visit Provider Obstetrics & Gynecology
CPT/HCPCS: 36415; 82306; 82950; 85027

== ENCOUNTER 2020-03-26 10:27 | Outpatient (RCR) | payer OTHER, SELFPAY | END 2020-03-28 23:59 | LOC: EMPH 10:27 | PROVIDERS: PCP Family Medicine; Visit Provider Family Medicine Geriatric Medicine | DX: Z03.818 Encounter for observation for suspected exposure to other biological agents ruled out (principal) | CPT/HCPCS: 87426 ==

== ENCOUNTER 2020-04-22 11:36 | Outpatient (RCR) | payer OTHER, SELFPAY | END 2020-04-27 23:59 | LOC: EMPH 11:36 | PROVIDERS: PCP Family Medicine; Referring Provider Family Medicine Geriatric Medicine; Visit Provider Family Medicine Geriatric Medicine | DX: Z03.818 Encounter for observation for suspected exposure to other biological agents ruled out (principal) | CPT/HCPCS: 87426 ==

== ENCOUNTER → 2020-05-12 16:54 | Outpatient (CLI) | payer OTHER, SELFPAY | PROVIDERS: PCP Family Medicine; Visit Provider Obstetrics & Gynecology | DX: Z36.85 Encounter for antenatal screening for Streptococcus B (principal) | CPT/HCPCS: 87081 ==

== ENCOUNTER 2020-05-20 16:12 | Outpatient (RCR) | payer OTHER, SELFPAY | END 2020-05-28 23:59 | LOC: EMPH 16:12 | PROVIDERS: PCP Family Medicine; Referring Provider Family Medicine Geriatric Medicine; Visit Provider Family Medicine Geriatric Medicine | DX: Z03.818 Encounter for observation for suspected exposure to other biological agents ruled out (principal) | CPT/HCPCS: 87426 ==

== ENCOUNTER 2020-05-28 01:50 | Inpatient (IN) | payer OTHER, SELFPAY ==
[2020-05-28] VITALS (33 sets, daily range): BP systolic 99–135; BP diastolic 55–74; PULSE 52–113; RESP 14–18; TEMP 36.4–37.1; O2SAT 85–100; BMI 29.0
[2020-05-28] MEDS: Lactated Ringers 500 ML 999 ML IV (02:15)
[2020-05-28 02:26] LABS: Absolute Lymphocyte Count 2.68 X10^3/uL (0.83-4.51); Absolute Neutrophil Count 9.2 X10^3/uL (2.0-7.7); Basophil# 0.06 X10^3/uL; Basophil% 0.5 % (0-1); Eosinophil# 0.11 X10^3/uL; Eosinophils% 0.8 % (0-5); Hematocrit 34.7 % (37-47); Hemoglobin 11.1 g/dL (12.0-15.0); Lymphocyte # 2.68 X10^3/ul (4.0); Lymphocyte % 20.4 % (19-41); Mean Corpuscular Hgb 29.3 pg (27.0-32.0); Mean Corpuscular Volume 91.6 fL (81-99); Mean Platelet Vol. 10.2 fl (6.2-12.0); Monocyte# 0.84 X10^3/uL; Monocyte% 6.4 % (0-10); NRBC Flagged by Analyzer 0 % (0-5); Neutrophil # 9.24 X10^3/uL (2.7-7.7); Neutrophil % 70.5 % (47-70); Platelet Count 152 K/mm3 (150-450); RBC Distribution Width CV 13.2 % (11.6-14.6); RBC Distribution Width SD 43.7 fl (35.1-43.9); Red Blood Count 3.79 M/mm3 (4.2-5.4); White Blood Count 13.1 K/mm3 (4.4-11.0)
--- NOTE | 2020-05-28 02:40 | PCM.HP.OB ---
- Problem List (1) 39 weeks gestation of Status: Acute History Date of Admission: 05/28/20 Final CORDELIA: 05/25/20 Final CORDELIA Source: US <20 weeks Gestational age: 40 Weeks and 3 Days History of this : This is a 24 year-old, G [3], P [2], at 39 3/7 weeks gestational age. Allergies No Known Allergies Allergy (Verified 11/01/19 20:07) Home Medications: Home Medications Prenatabs FA 1 tab PO DAILY 09/19/16 Ferrous Sulfate 325 mg PO DAILY@0800 06/21/18 Docusate Sodium [Colace] 100 mg PO BID PRN PRN #60 capsule 06/22/18 Cholecalciferol (Vitamin D3) [Vitamin D3] 4,000 unit PO DAILY 11/01/19 Ondansetron [Ondansetron Odt] 4 mg PO Q8H PRN PRN 11/01/19 Famotidine [Pepcid] 20 mg PO BID 05/28/20 Smoking Status: Never smoker Alcohol: None NST - FHR Rate Baby A Baseline: 130 Variability:: Moderate Accelerations:: 15 x 15 Decelerations:: None NST Reactive:: Yes FHR Category:: Category I Uterine Activity:: 07/08 History Past Pregnancies: Labs 05/28/20 02:15 WBC 13.1 H RBC 3.79 L Hgb 11.1 L Hct 34.7 L MCV 91.6 MCH 29.3 MCHC 32.0 RDW Std Deviation 43.7 RDW Coeff of Lenora 13.2 Plt Count 152 MPV 10.2 Immature Gran % (Auto) 1.400 H Neut % (Auto) 70.5 H Lymph % (Auto) 20.4 Loíza % (Auto) 6.4 Eos % (Auto) 0.8 Baso % (Auto) 0.5 Absolute Neuts (auto) 9.2 H Absolute Lymphs (auto) 2.68 Nucleated RBC % 0 Labs: ACOG ANTEPARTUM RECORD - HISTORY AND PHYSICAL (05/28/2020) Name: SUGEY BLACK OB Physician: CARLEE Ronceverte's Physician: Lazaro Hoffman ...................................................................... : 1995 Age: 24 Address: [address] [place] [id number] Phone: H) [phone] (O) [phone] Insurance Carrier: [facility] [id number] Emergency Contact: CALI BLACK [phone] ...................................................................... Final CORDELIA: 06/01/20 By Ultrasound: 7 weeks 4 days PARITY: (G-Total Pregnancies P-Fullterm,Premature,Induced AB,Spont AB, Ectopics, Multiple,Living) CORDELIA CONFIRMATION: By LMP: 08/26/19 Initial Exam: 06/01/20 By First Ultrasound Exam: 05/29/20 Final CORDELIA: 06/01/20 BLOOD TYPE: AFP: 1 HR PG: GBS: Original Ordering Provider: Rachelle Hoffman JT Culture Group B Beta Streptococcus is not isolated. Original Ordering Provider: Rachelle Hoffman JT Culture Group B Beta Streptococcus is not isolated. Original Ordering Provider: Rachelle Powers JT Culture Group B Beta Streptococcus is not isolated. Rublla titer (>10 immune)-- Hepatatis B paul AG-- CULTURES:-- OB PROBLEM LIST: AFP and CF testing declined BOY COVID19 @ 32wga EPDS = 0 on 10/18/2019. Large subchorionic bleed - Growth scan at 28-32wga. 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 Illicit Drug Use - denies use of street drugs Sexual Activity - Residence - lives with Place of - [place], [place] Hours Worked - 36 h Spouse-Sig Other Name - Cali Spouse-Sig Other Occupation - [employer] - self Spouse-Sig Other Phone No - [phone] Children Name(s) - Kvng '17, Tiffany '19 PRIOR DELIVERY HISTORY DEL DATE GEST LAB WT LB WT OZ TYPE ANES LABOR TX 25 Jun 16 40 12 7 7 Vag Epidural No Nov 12 39 18 7 7 Vag Epidural No ANTEPARTUM FLOW CHART VISIT RTC FU F F NH U U DATE WK MD WKS HT PN HR M SS BP ED WT NH GL D EF ST __ ____ ___ __ __ ___ __ __ __ ___ __ __ __ ___ __ 29 Apr SHM 1 39 V + + 106/70 0 163 tr - 4 60 -3 Apr SHM 1 37 V + + 112/56 0 161 tr ne Apr SHM 1 35 V + + 130/64 0 162 tr tr 3 60 -3 02 Apr SHM 1 35 V + + 100/60 0 159 - - Mar SHM 2 33 V + + 108/56 0 159 - - Mar 27 SHM 2 29 ? + + 106/58 0 155 - - Mar 25 SHM 2 26 ? + + 90/70 0 154 tr - Feb 19 CH 4 23 + + 92/50 0 148 - - Jan 15 SHM 4 20 + + 104/60 0 141 tr - Dec 11 SHM 4 16 B + + 102/60 0 137 - - Nov 07 SHM 4 + - 104/58 0 135 tr - Nov 05 SHM 4 on O 100/58 0 137 ANTEPARTUM NOTE(S): May 26 2020: maverick beena, cervix check May 19 2020: May 12 2020: see note Apr 29 2020: bad heartburn and reflux Apr 17 2020: Mar 25 2020: Mar 13 2020: feeling well. Glucola drawn today. AM Feb 10 2020: Jan 15 2020: still having nausea, no vomiting, using Zofran prn Dec 17 2020: Nov 19 2020: FHT check Nov 03 2020: Bleeding & cramping this weekend COMPREHENSIVE ANTEPARTUM NOTE(S): May 26 2020: Shanae is here for a PNV. Good FM. No edema present. Sl cramping in lower abdomen. Denies ctx's. Occasional Uintah Zaragoza. Would like a cervix check today. MK May 19 2020: Sugey is here for PNV. Having BH CTX. Good FM. No edema noted. No LOF or vag discharge. Having some heartburn but able to eat and drink fluids without difficulty. Urine dipped tr and neg. No concerns for today. LSS May 18 2020: H taken to OB. tkg May 12 2020: Angelica is here for visit. She relates loose stools with use of Mylanta but ok by her as she has been constipated the whole prior to this. She does feel that she now has noticed increased issue with hemorrhoid. Using all the OTC but just not getting any improvement. She will have GBS today. LARC declined. Reviewed FM, SROM, and labor. LMT May 12 2020: Heartburn resolves with Mylanta, she takes this in the evenings as needed. However, she has more loose stool with worsening of hemorrhoid despite otc 1% hydrocortisone. Rx hydrocortisone 2.5% for hemorrhoid. GBS swab obtained. Apr 29 2020: Heartburn is pretty bad and feels burning in the back of her throat when she is laying down. She takes Pepcid daily. Considering adding Mylanta as she discussed with you. LMT Apr 29 2020: CEPHALIC, OA, consider US to confirm placement at 36-37wga. Reviewed GBS next visit. Reviewed IOL indications, pt not considering elective IOL at 39-40wga. 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 Notes mucus plug passed, no significant contractions. Denies vaginal bleeding or spotting. Apr 17 2020: Sugey is her for PNV. Reports + FM. She is doing well. No edema present to day. Medications and allergies reviewed. No complaints or concerns expressed today. LJW Apr 17 2020: Recently recovered from mild case of COVID19. Her also had it as well as one of the daughters. Denies residual sx. She has returned to work. Denies ctx, vaginal bleeding. Has good FM. US today confirms CEPHALIC. c/o worsened heartburn despite Pepcid. Will try Mylanta since failed tums previously. Bleeding, PTL precautions reviewed. Consider growth US in 4 weeks given COVID19 infection Mar 25 2020: Amy is her for 30 wks + 2 days. Reports + FM. She is doing well. No edema present to day. Medications and allergies reviewed today. No complaints or concerns expressed today. LJW Mar 25 2020: PTL, ROM, FM precautions. Discussed workplace precautions to prevent COVID19 exposure. Feb 11 2020: Sugey is her for her 24 wks +1 PNV today. Good FM. No edema present today. She is doing good with Zofran twice a day morning and evening. Glucola given today to have done at next visit.. Medications and allergies reviewed today. No questions or concerns expressed today. SAI Feb 11 2020: Reports +FM. FHR 148-155. Has been feeling a lot better lately. Baby is still laying transverse. Glucola given with instructions for next visit in 4 weeks. Will get US at the hospital in 4 weeks to look at grwoth and RACHAEL. Will then start every 2 week appts. - CH Jan 15 2020: Denies cramping, Uintah Zaragoza or bleeding/spotting. Feels well. Returned to work. Anatomy scan reviewed, wnl - MALE (as prior), 63rd%, placenta posterior. Subchorionic hematoma 6.1 x 4.7 x 0.3cm, overall stable. Ok for . Plan growth scan at 28-32wga. No further restrictions at this time. Uintah Zaragoza, PTL and bleeding precautions reviewed. Dec 18 2019: Sugey is her for her 16 wks +2 PNV today. Good FM, She is doing good with mild nausea, Zofran has helped the nausea. Spotting has stopped. She had US done at [facility] [place] 12/16/19. MSAFP/CF papers reviewed and signed today. Medications and allergies reviewed today. No questions or concerns expressed today. SAI Dec 18 2019: US 12/17/19 reviewed with appropriate interval growth, AGA, resolving anterior subchorionic hemorrhage 5.8 x 5.0 x 1cm. Bedside can today shows hematoma at prior specified site. Cervix appears 35mm transabdominally. Bleeding and cramping resolved x 1 week. Bleeding precautions again reviewed. US in 4 weeks for anatomy with growth, continue to monitor hematoma Dec 18 2019: Order faxed for 20 week comp u/s. LMT Nov 20 2019: Sugey is here for a PNV. Still having some nausea and fatigue. Spotting as well. NOB nurse requested her visit today for FHT check. MK Nov 20 2019: Continues with dark brown vaginal bleeding daily, light in flow. Mild cramping intermittently. Nausea manageable mostly, but vomiting x 1 this past week. Working q3rd weekend. US today shows living IUP, FHR 140 bpm, active fetus with large posterior perigestational bleed measuring 7 x 4cm in largest dimension. CRL 57.6mm c/w 12w2d. Bleeding precautions reviewed. Limit heavy lifting, pushing and pulling. No intercourse. Low impact and low intensity physical activity only. Growth US in 4 weeks. Nov 15 2019: TELEHEALTH NOB VISIT. Shanae is a 24 year old with an CORDELIA of 06/01/2020, current GA is 11 w 4 d. She reports that she continues to have dark brown vagina discharge with occasional stringy red clots, has not been feeling any cramping; RN reported this to Dr. Shaquille Powers and Shanae is to return next week for a visit/FHT check. Shanae is in agreement with this plan, and will call if bleeding becomes heavy, and/or if she starts to cramp more. Shanae states that she feels that as long as she takes Zofran, her nausea is better. Denies vomiting. Encouraged small frequent meals with protein included throughout the day, and adequate water hydration of at least one gallon of water per 24 hours. Discussed trying carb rich foods when nauseated. She states that she sometimes have to take Colace, but over all, constipation has not been a real problem with Zofran use. Shanae is an established patient with this practice., and she has no questions regarding practice patterns, and her labs have been collected. She resides with her , Cali, and their two young daughters. Past history updated. Shanae plans to deliver at [facility] [place] with a likely epidural, and she will breastfeed. Emergencies/danger signs to report, round ligament pain, reporting a suspected UTI, and common OTC medications approved/not approved for use during reviewed. She is a non-smoker, and denies use of drugs or ETOH. Genetic Screening form completed at her prior visit. AFP and CF testing declined on 10/18/2019, with consent signed as such. She states that she takes an OTC vitamin that contains DHA and tolerates this well. Shanae walks for exercise several times a week. 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 water/dietary/caloric needs reviewed, along with expected weight gain, limiting empty calories, limiting caffeine to one cup a day, and food safety for . She states that she understands all information provided to telephone NOB visit, and has no questions following same. AW New Nov 07 2019: Sugey states you and she had a discussion re: taking off work this coming weekend if needed. 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 Sugey went for a walk today, having dark brown bleeding, a little cramping and would prefer not to have to work this coming weekend. OK to write a note to be off 11/08 and 11/10/19. Nov 05 2019: Entry for 11/04/19: Shanae seen in ER on 11/02/19 for heavy vaginal bleeding, US there showed two perigestational hematomas and living IUP c/w dates. Shanae reports bleeding now brown and light. Mild cramping. US again shows living IUP, FHR 190 bpm. Single hematoma appreciated on transabdominal US. Advised lifting restrictions, low impact, low intensity activity only and pelvic rest. SAB si/sx reviewed. Shanae to call in next week with update. Plan for visit in 4 weeks with US. Nov 04 2019: Sugey presents here today with spouse for PNV with concerns regarding small amount bleeding and cramping that continues. Denies other concerns at this time. MARISSA Oct 18 2019: Shanae is here for missed menses appt. She relates LMP of 08/25, + UPT today in office, EDC 06/01/20. She is having mild all day nausea. She has not really tried anything as she does not throw up Reviewed adding Pepcid bid, Unisom at bedtime, B6 50 mg bid. Could consider trying seabands also. IF sx are not improving with OTC could consider adding Zofran or Phenergan. She has had 2 loose stools with some cramping since +UPT. Advised to watch this and if persists can have stool culture. Some GI upset is normal in early . She is asking about work? Should she be working. Advised work is fine as long as she is provided with appropriate PPE. If this is not the case then can get a note. She may consider adding supplementation that is suggested to be added in the second trimester, Vit C, Zinc, and baby ASA. May start Zinc now. She is on PNV only at this time. She had been on Vit D prior and recommend adding this back in until getting adequate sunshine outside She will have culture today. Educational materials are provided and reviewed. Encouraged increased fluids, adding approx 300 extra calories per day, 30 minutes of exercise 5x/wk. T Oct 18 2019: as above. Notes LH peak approximately 4/10 or 4/11, thinks she may have ovulated earlier than normal and is concerned about dates. [facility] Jul 12 2019: Leisa is here for annual exam. She is doing well, no complaints today. Menses is monthly and regular. Attempting at this time and continues her PNV. Pap is not due this year. PHQ-9 completed with a score of 1. T Jul 12 2019: as above. [facility] REVIEW OF SYSTEMS: GENERAL - Denies fever, or chills SKIN - Denies rash, new skin lesions, or change in moles EYES - Denies blurred vision, or change in visual acuity EARS - Denies ear pain, or difficulty hearing NOSE - Denies nasal congestion, discharge, or bleeding MOUTH - Denies sore throat, or difficulty swallowing NECK - Denies pain or swelling RESPIRATORY - Denies shortness of breath, cough, wheezing CARDIOVASCULAR - Denies palpitations, chest pain, orthopnea, PND, peripheral edema, syncope or claudication GASTROINTESTINAL - Denies nausea, vomiting, diarrhea, constipation, Denies abdominal pain, melena and or bright red blood GENITOURINARY - Denies dysuria, frequency of urination, urgency, or hesitancy MUSCULOSKELETAL - Denies joint or muscle pain, or back pain NEUROLOGICAL - Denies localized numbness, weakness, or tingling PSYCHIATRIC - Denies depression, anxiety, substance abuse or suicide attempts ENDOCRINE - Denies heat or cold intolerance, weight loss or gain, increasing thirst HEMATO-IMMUNOLOGIC - Denies easy bruising, bleeding, oral ulcerations or recurrent infections GENETICS SCREENING: Age 35+ years: No Thalassemia: No Neural Tube Defect: No Down Syndrome: No CLARE-SACHS: No Sickle Cell Disease: No Hemophilia: No Musc. Dystrophy: No Cystic Fibrosis: No-declines screening [place] Chorea: No Mental Retardation: No Fragile X: No Other genetic: No Other defects: No SABs/still births: No Drugs since LMP: Yes INFECTION HISTORY: High risk AIDS: No High risk Hepatitis: No Exposed to TB: No Exposed to Herpes: No Rash/viral illness since LMP: No History of STD: No Comments: Health Care Provider MENSTRUAL HISTORY: *Menses Regularity: RegularMenarche (Age Onset): 10* PAST SUMMARY: PARITY: 1. Total Pregnancies............ 3 2. Full Term Pregnancies........ 2 3. Premature.................... 0 4. Abortions - Induced.......... 0 5. Abortions - Spontaneous...... 0 6. Ectopics..................... 0 7. Multiple Births.............. 0 8. Living Children.............. 2 PAST #1: Date of :.................. 11/20/16 Gestation Weeks:................ 39 Length of labor(hours):......... 18 Sex:............................ F Weight-lbs:............... 7 Weight-oz:................ 7 Type of Delivery:............... Vag Type of Anesthesia:............. Epidural Place of Delivery:.............. [facility] Treatment of Labor?:.... No Comment: FEVER IN LABOR PAST #2: Date of :.................. 06/22/18 Gestation Weeks:................ 40 Length of labor(hours):......... 12 Sex:............................ F Weight-lbs:............... 7 Weight-oz:................ 7 Type of Delivery:............... Vag Type of Anesthesia:............. Epidural Place of Delivery:.............. [facility] Treatment of Labor?:.... No Comment: Expected Delivery Method: Spontaneous Vaginal Number of Visits: 12 Physical Exam Vitals: Vital Signs Temp Pulse BP Pulse Ox 97.5 F L 69 135/72 H 85 05/28/20 02:01 05/28/20 02:02 05/28/20 02:02 05/28/20 02:02 General: Alert, Oriented x3, Cooperative, No apparent distress HEENT: Atraumatic, Normocephalic Abdomen: Gravid Cervix Dilation (cm): 9 - per RN exam Effacement (%): 90 Assessment/Plan All Active Problems 39 weeks gestation of (Acute) 40 weeks gestation of (Acute) (spontaneous vaginal delivery) (Acute) This is a 24 year-old, G [3], P [2], at 39 3/7 weeks gestational age in active labor,
[2020-05-28] MEDS: Lactated Ringers 1,000 ML 200 ML IV (02:50)
[2020-05-28] MEDS: Oxytocin 30 units/NS 500 ml 30 UNITS/500 ML IV.SOLN 334 UNITS IV (03:52)
--- NOTE | 2020-05-28 04:02 | PCM.OPRPT ---
Problem List (1) 39 weeks gestation of Status: Acute Vaginal Delivery Maternal Presentation: Active Labor Amniotic Membrane Rupture Type: Artificial Rupture of Membrane time: 05/28/20 031 Amniotic Fluid Description: Clear Final CORDELIA: 06/01/20 Final CORDELIA Source: US <20 weeks Gestational age: 39 Weeks and 3 Days Date of Procedure: 05/28/20 Pre-Operative Diagnosis: 39 3/7wga, labor Post-Operative Diagnosis: 39 3/7wga, labor Surgery/ Procedure Performed: Spontaneous Vaginal Delivery Type of Anesthesia: None Description of Procedure: Patient with anterior lip/o station. Amniotomy performed with clear fluid and then FD. Patient pushed with excellent maternal effort to deliver a vigorous male over an intact perineum. The was placed on the maternal abdomen and further attended by nursery personnel. The cord was doubly clamped and cut at 3 minutes of infant life. The placenta delivered spontaneously and appeared intact on inspection. Perineum intact. Sponge counts correct x 2. Presentation: Vertex Placental Delivery Description: Spontaneous Placenta Disposition: [facility] Cord Vessel Description: 3 Vessels Nuchal Cord Compression: Without compression Cord Entanglement: None Drain: Noe to straight drain Estimated Blood Loss: 300 ml A gender: Male (1 minute): 8 (5 minute): 9 Episiotomy Description: None Laceration: None Medications given after delivery: IV Pitocin Complications: None
[2020-05-28] MEDS: Acetaminophen 500 MG Tablet PO (04:44)
[2020-05-28] MEDS: Ibuprofen 600 MG Tablet PO ×2 (06:00→11:58)
[2020-05-28] MEDS: 0.9% Saline Lock 10 ML Syringe IV (06:55)
[2020-05-28] MEDS: Prenatal Vits Tablet 1 TABLET PO (11:59)
[2020-05-28] MEDS: Acetaminophen 500 MG Tablet 1000 MG PO (18:12)
[2020-05-29] MEDS: Ibuprofen 600 MG Tablet PO ×2 (00:50→08:04)
[2020-05-29 04:06] VITALS: BP 114/70; PULSE 77; PULSE 85; RESP 16; TEMP 36.4; O2SAT 98
[2020-05-29] MEDS: Acetaminophen 500 MG Tablet 1000 MG PO (04:12)
[2020-05-29 09:03] VITALS: BP 106/58; PULSE 69; RESP 18; TEMP 36.7; O2SAT 97
--- NOTE | 2020-05-29 09:03 | PCM.PN.OB ---
Patient Problems: Active and Suspected Problems 39 weeks gestation of (Acute) Subjective: Patient without complaints. Breast-feeding going well. Reports minimal vaginal bleeding. - Physical Exam Vitals/I&O's: Vital Signs Temp Pulse Resp BP Pulse Ox 97.5 F L 85 16 114/70 98 05/29/20 04:06 05/29/20 04:06 05/29/20 04:06 05/29/20 04:06 05/29/20 04:06 Oxygen Delivery Method Room Air Weight: 163 lb 9.328 oz Body Mass Index (BMI) 29.0 Intake and Output for Last 24 Hours 05/27/20 05/28/20 05/29/20 23:59 23:59 23:59 Intake Total 1206.67 / 1206.67 Output Total 700 / 700 Balance 506.67 / 506.67 Current Medications Acetaminophen (Acetaminophen 500 Mg Tablet) 1,000 mg PO Q8H PRN PRN PRN Reason: Pain Score 1-10 Last Admin: 05/29/20 04:12 Dose: 1,000 mg Documented by: Bisacodyl (Bisacodyl 10 Mg Suppository) 10 mg RECTAL UD PRN PRN Reason: If no BM Dibucaine (Dibucaine 30 Gm Tube) 1 applic TOPICAL TID PRN PRN; Protocol PRN Reason: Discomfort Docusate Sodium (Docusate Sodium 100 Mg Capsule) 100 mg PO BID PRN PRN PRN Reason: Constipation Famotidine (Famotidine 20 Mg Tablet) 20 mg PO BID [facility] Last Admin: 05/28/20 23:44 Dose: Not Given Documented by: Hydrocortisone (Hydrocortisone 2.5% Crm) 1 applic TOPICAL TID PRN PRN; Protocol PRN Reason: Discomfort Ibuprofen (Ibuprofen 600 Mg Tablet) 600 mg PO Q6H PRN PRN PRN Reason: Pain Score 1-10 Last Admin: 05/29/20 08:04 Dose: 600 mg Documented by: Methylergonovine Maleate (Methylergonovine 0.2 Mg/Ml Ampul) 0.2 mg IM X1 PRN PRN Reason: Excess bleeding/uterine atony Ondansetron HCl (Ondansetron 4 Mg/2 Ml Vial) 4 mg IV Q4H PRN PRN PRN Reason: Nausea Multivit/Folic Acid/Iron ( Vits Tablet) 1 tablet PO DAILY@1200 RACHAEL Last Admin: 12/31/20 11:59 Dose: 1 tablet Documented by: Senna/Docusate Sodium (Senna/Docusate Sodium 1 Tablet) 1 - 2 tablet PO DAILY PRN PRN PRN Reason: Constipation Simethicone (Simethicone 80 Mg Tablet) 80 mg PO PCHS PRN PRN Reason: Indigestion/Stomach pain Sodium Chloride (0.9% Saline Lock 10 Ml Syringe) 5 - 15 ml IV UD PRN PRN Reason: SALINE FLUSH Last Admin: 05/28/20 06:55 Dose: 10 ml Documented by: Medical Necessity - Tobacco Use Smoking Status: Never smoker Assessment/Plan All Active Problems 39 weeks gestation of (Acute) (spontaneous vaginal delivery) (Acute) Doing well day #1 status post routine spontaneous vaginal delivery. Will discharge to home with routine instructions.
--- NOTE | 2020-05-29 09:04 | DCINST_ITS ---
Discharge Diet: No Restrictions Discharge Activity: May Shower, May Take a Tub Bath May resume sexual activity in: 4-6 weeks Additional Activity Instructions:: Nothing in the vagina for 4-6 weeks. You may return to work/school in 6 weeks. Call your doctor if you observe: Inability to urinate, Inability to have a bowel movement, Using more than one pad per hour Additional Instructions: If you experience any of the following, contact your healthcare provider. * Bleeding that soaks a pad every hour for 2 hours * Fever 100.4 or higher * Unrelieved incision or abdominal pain * Swelling, redness, discharge or bleeding from your incision or episiotomy site * Your incision begins to separate * Problems urinating (including inability to urinate or burning while urinating). * Visual changes * Severe headache * Flu-like symptoms * Pain or redness in one of both of your breasts * Pain, warmth, tenderness or swelling in your legs, especially the calf area * Frequent nausea and vomiting * Symptoms of depression or anxiety If you experience any of the following, call 911 or go to the nearest Emergency Room. * Chest pain * Problems breathing * Seizure activity * Partial or complete paralysis of a body part, slurred speech, weakness or drooping of the face, or a sudden inability to walk or hold your balance Allergies/Adverse Reactions: Allergies No Known Allergies Allergy (Verified 11/01/19 20:07) Medications to take at Discharge Prenatabs FA 1 tab PO DAILY 09/19/16 Ferrous Sulfate 325 mg PO DAILY@0800 06/21/18 Docusate Sodium [Colace] 100 mg PO BID PRN PRN #60 capsule 06/22/18 Cholecalciferol (Vitamin D3) [Vitamin D3] 4,000 unit PO DAILY 11/01/19 Ondansetron [Ondansetron Odt] 4 mg PO Q8H PRN PRN 11/01/19 Famotidine [Pepcid] 20 mg PO BID 05/28/20 Please Follow Up With: Rachelle Steve MD - [phone] When: Call to make an appointment with your doctor in 6 weeks. Primary Care Physician: Moy Carson MD [Primary Care Provider] - Test Results: Test results from this visit will be discussed in further detail at your follow- up appointment, if applicable.
== END 2020-05-29 12:40 | disposition home or self-care (01) | DRG 807 ==
PROVIDERS: Admitting Provider Obstetrics & Gynecology; PCP Family Medicine; Referring Provider Obstetrics & Gynecology; Visit Provider Obstetrics & Gynecology
DX: O80 Encounter for full-term uncomplicated delivery (principal); Z37.0 Single live birth; Z3A.39 39 weeks gestation of pregnancy
CPT/HCPCS: 59025; 59050; 85025; 86850; 86900; 86901; 99218; J7120; A4216; G0378

== ENCOUNTER → 2020-12-22 16:53 | Outpatient (CLI) | payer OTHER, SELFPAY ==
[2020-05-28 01:55] VITALS: BMI 29.0
[2020-12-27 20:12] LABS: HPV Reflexed? NOT INDICATED
== END ==
PROVIDERS: PCP Family Medicine; Visit Provider Obstetrics & Gynecology
DX: Z12.4 Encounter for screening for malignant neoplasm of cervix (principal)
CPT/HCPCS: 88175; G0145

== ENCOUNTER → 2021-05-12 10:00 | Outpatient (CLI) | payer OTHER, SELFPAY ==
[2021-05-12 10:55] LABS: Color, Urine Yellow (Yellow); Glucose, Dipstick Normal (Normal); Ketone-Dipstick Negative (Negative); Leukocyte Esterase-Dipstick Negative /ul (Negative); Nitrite-Dipstick Negative (Negative); Occult Blood-Urine Negative /ul (Negative); Protein-Dipstick Negative (Negative); Specific Gravity, Urine 1.015 (1.002-1.030); Urine Bilirubin Dipstick Negative (Negative); Urine Clarity Sl. Cloudy (Clear); Urine Urobilinogen Normal (Normal); Urine pH 6.5 (5.0 - 8.0)
[2021-05-12 10:56] LABS: Absolute Lymphocyte Count 1.38 X10^3/uL (0.83-4.51); Absolute Neutrophil Count 3.7 X10^3/uL (2.0-7.7); Basophil# 0.02 X10^3/uL; Basophil% 0.4 % (0-1); Eosinophil# 0.03 X10^3/uL; Eosinophils% 0.5 % (0-5); Hematocrit 35.1 % (37-47); Hemoglobin 11.5 g/dL (12.0-15.0); Lymphocyte # 1.38 X10^3/ul (0.83-4.51); Lymphocyte % 24.7 % (19-41); Mean Corp Hgb Conc 32.8 g/dL (32-36); Mean Corpuscular Hgb 28.3 pg (27.0-32.0); Mean Corpuscular Volume 86.5 fL (81-99); Mean Platelet Vol. 10.2 fl (6.2-12.0); Monocyte# 0.45 X10^3/uL; Monocyte% 8.1 % (0-10); NRBC Flagged by Analyzer 0 % (0-5); Neutrophil # 3.69 X10^3/uL (2.7-7.7); Neutrophil % 65.9 % (47-70); Platelet Count 224 K/mm3 (150-450); RBC Distribution Width CV 12.7 % (11.6-14.6); RBC Distribution Width SD 40.3 fl (35.1-43.9); Red Blood Count 4.06 M/mm3 (4.2-5.4); White Blood Count 5.6 K/mm3 (4.4-11.0)
[2021-05-12 11:06] LABS: Amphetamine Urine VISTA NEGATIVE (<1000 ng/mL); Barbiturate Urine VISTA NEGATIVE (< 200 ng/mL); Benzodiazepine Urine VISTA NEGATIVE (< 200 ng/mL); Cocaine Urine VISTA NEGATIVE (< 300 ng/mL); Ecstacy Urine VISTA NEGATIVE (< 500 ng/mL); Methadone Urine VISTA NEGATIVE (< 300 ng/mL); PCP Urine VISTA NEGATIVE (< 25 ng/mL); THC Urine VISTA NEGATIVE (< 50 ng/mL); Vista UDS pH Range 6
[2021-05-12 11:14] LABS: Thyroid Stim Hormone (TSH) 0.44 uIU/mL (0.358-3.74)
[2021-05-12 12:33] LABS: HIV - WCH Non-Reactive (Nonreactive); Hepatitis B Surface Antigen Non-Reactive (Nonreactive); Hepatitis C Antibody Non-Reactive (Nonreactive); Rubella IgG Reactive (Nonreactive); Syphilis Antibodies Non-reactive
[2021-05-13 22:07] LABS: Chlamydia By Nucleic Acid AMP Negative (Negative)
[2021-05-14 08:00] LABS: Gonococcus By Nucleic Acid AMP Negative (Negative)
== END ==
PROVIDERS: PCP Family Medicine; Visit Provider Obstetrics & Gynecology
DX: Z11.3 Encounter for screening for infections with a predominantly sexual mode of transmission (principal); Z34.81 Encounter for supervision of other normal pregnancy, first trimester
CPT/HCPCS: 36415; 80307; 81002; 84443; 85025; 86703; 86762; 86780; 86803; 87077; 87086; 87088; 87340; 87491; 87591

== ENCOUNTER → 2021-05-19 10:50 | Outpatient (CLI) | payer OTHER, SELFPAY ==
--- NOTE | 2021-05-19 10:53 | US_ITS ---
STUDY: ULTRASOUND BREAST - RIGHT REASON FOR EXAM: Female, 25 years old. Right breast lump. The patient is 9 weeks . TECHNIQUE: Axial and longitudinal images of the RIGHT breast were performed with a high resolution ultrasound transducer. # OF IMAGES: 27 COMPARISON: None. FINDINGS: RIGHT Breast: The palpable abnormality corresponds to a 1.6 cm x 1.6 cm x 1 cm irregular heterogeneous mass at the 11 o''clock position of the breast at 3 cm from the nipple. A biopsy is recommended. US/Breast Limited Unilateral IMPRESSION: 1.6 cm x 1.6 cm x 1.0 cm hypoechoic irregular solid mass at the 11 o''clock position breast at 3 cm from the nipple. A biopsy is recommended. ASSESSMENT CATEGORY: BIRADS Category 4: Suspicious - Biopsy Should Be Considered. A letter regarding these results will be sent to the patient by the facility within 30 days. Electronically Signed: Cosme Alford MD at 15:47 EST , Service support ,
== END ==
PROVIDERS: PCP Family Medicine; Visit Provider Obstetrics & Gynecology
DX: O26.891 Other specified pregnancy related conditions, first trimester (principal); N63.10 Unspecified lump in the right breast, unspecified quadrant; Z3A.09 9 weeks gestation of pregnancy
CPT/HCPCS: 76642

== ENCOUNTER → 2021-05-26 | Outpatient (CLI) | payer OTHER, SELFPAY ==
--- NOTE | 2021-05-25 | IMM_PTH ---
PATIENT: SUGEY BLACK LOC: [facility] U#:[id number] AGE/SX: 25/F ROOM: RE05/26/[address]: Dr. Jared Scott MD : 1995 BED: DIS: 05/26/2021 SPEC #: [id number] RECD: 05/27/21 13:00 STATUS: PAYAL REQ #: [id number] REE: 05/25/21 00:[address]: Jared Scott DEPT: IMMUNOHISTOCHEMISTRY RECD BY: Amanda Hercules ENTERED: 05/27/21 13:02 SP TYPE: IMMUNO OTHR DR: Dr. Tera Carson MD Tissues: Right breast, NOS Procedures: CALPONIN-1 (add) CK5-6 (add) CK8 (add) E-CAD (add) HER2 SAKSHI (add) KI-67 (add) P53 (add) SD (add) P40 (add) ER (initial) PHYSICIAN & [address] [address] SPECIMEN INFORMATION: Tissue Source: Right breast tissue Clinical Info: Right breast mass Specimen Number: [id number] CPT code: 99554, 88821 x6, 81790 x3 METHODOLOGY: Deparaffinized sections of prefer/formalin-fixed tissue or PAP/DQ stained slides are incubated with monoclonal/polyclonal antibodies/oligonucleotide probes. Localization is made via biotin free immunoperoxidase method. Appropriate controls are performed and reacted as expected. Results on target cell population are indicated in the following table: RESULTS: ANTIBODY / CLONE RESULT E-Cad (ECH-6) positive CK8 (15tebfD21) positive Calponin-1 (YF653Z) negative CK5-6 (D5 & 1684) positive P40 (BC28) negative P53 (DO-7) positive Ki-67 (30-9) positive, high MORPHOMETRIC ANALYSIS ER (clone 6F11) 0 SD (clone 16/1E2) 0 Her-2Neu (clone CB11) 0 The prognostic test for HER2 is performed on formalin-fixed paraffin embedded tissue. A 3+ (positive) staining pattern is defined as intense, homogeneous, complete, circumferential membranous staining in >10% of contiguous tumor cells. A similar weak (2+) staining pattern is interpreted as equivocal. GÉNESIS follow-up testing is recommended for all equivocal cases. Positivity/negativity for ER/SD is reported if > or < 1% of the tumor cells are immuno- reactive, respectively. The ASCO/CAP criteria is used for scoring. Reference: Journal of Clinical Oncology, 2013; 31:2137-3171 & 2010; 16:0560-1647. Duration of fixation: 30.5 Hrs; Sample Adequate: Yes. These assays have not been validated on decalcified tissues. Results should be interpreted with caution given the likelihood of false negativity on decalcified specimens. These tests were developed and their performance characteristics determined by [facility]. They may not have been cleared or approved by the U.S. Food and Drug Administration. The FDA has determined that such clearance or approval is not necessary. The above immunohistochemical/dualISH markers are ordered and reviewed by the Pathologist. INTERPRETATION: Right breast mass, core biopsy: Invasive ductal carcinoma. Negative for estrogen receptors (unfavorable prognostic indicator). Negative for progesterone receptors (unfavorable prognostic indicator). Negative for overexpression of HRV3kyf. See comment. SJ:lorrie 05/31/2021 Comment: The tumor shows basal cell-like features.
--- NOTE | 2021-05-25 13:00 | BRBX_PTH ---
PATIENT: SUGEY BLACK LOC: [facility] U#:[id number] AGE/SX: 25/F ROOM: RE05/26/[address]: Dr. Jared Scott MD : 1995 BED: DIS: 05/26/2021 SPEC #: [id number] RECD: 05/26/21 10:16 STATUS: PAYAL REMaurice #: [id number] REE: 05/25/21 13:[address]: Jared Scott DEPT: SURGICAL PATHOLOGY RECD BY: Yadira Bradley ENTERED: 05/26/21 12:16 SP TYPE: BREAST BX OTHR DR: Dr. Tera Carson MD Tissues: Right breast, NOS Procedures: Surgery Specimen Level IV HEADER OPERATION: Right breast biopsy PRE-OP DIAGNOSIS: Right breast mass TISSUE SUBMITTED: Right breast tissue MICROSCOPIC DIAGNOSIS Right breast mass, core biopsy: Invasive ductal carcinoma, nuclear grade 3 (0.3 cm in greatest length). SJ:lorrie 05/27/2021 COMMENT Immunohistochemistry ([id number]) supports the above diagnosis. Tumor also basal like features. ER/MD/Rsd6wfc studies are being performed on sections of tumor and the results from this study will be reported separately ([id number]). Preliminary results are reported to ?s nurse on 05/27/21. MICROSCOPIC DESCRIPTION Slides are reviewed. GROSS DESCRIPTION Received in fixative is one container labeled with the patient's name and designated right breast. The specimen consists of multiple elongated fragments of reis-yellow fibroadipose tissue that in aggregate measure 1.5 x 0.5 x 0.1 cm. The entire specimen is submitted in one cassette. / TASHI:lorrie 05/26/21 TC:0 CPT: 32166 ADDENDUM ADDENDUM ADDENDUM ADDENDUM ADDENDUM ADDENDUM ADDENDUM ADDENDUM ADDENDUM ADDENDUM ADDENDUM ADDENDUM 06/25/2021 09:54 ADDENDUM 06/25/2021 09:54 ADDENDUM 06/25/2021 09:54 ADDENDUM 06/25/2021 09:54 ADDENDUM 06/25/2021 09:54 This addendum is added to incorporate an outside pathology consultation report. The case was examined at [facility] (#[id number]) and the following diagnosis was rendered. Right breast mass, core biopsy: Invasive ductal carcinoma, grade 3 (score: tubule 3, nuclear 3, mitotic 2), 0.4 cm in greatest length. Invasive tumor: ER negative (0%), MD negative (0%), HER2 negative (1+) by IHC. Please see complete above mentioned consultation report in EMR
== END | disposition home or self-care (01) ==
LOC: LABSPEC 10:27
PROVIDERS: PCP Family Medicine; Visit Provider Surgery
DX: N63.0 Unspecified lump in unspecified breast (principal)
CPT/HCPCS: 88305; 88341; 88342

== ENCOUNTER 2021-05-31 08:03 | Outpatient (CLI) | payer OTHER, SELFPAY ==
--- NOTE | 2021-05-31 08:12 | US_ITS ---
STUDY: FIRST TRIMESTER OBSTETRICAL ULTRASOUND REASON FOR EXAM: Female, 25 years old DATING LMP: Unknown. TECHNIQUE: Transabdominal TECHNICAL QUALITY: Adequate. PRIOR ULTRASOUND: None. FINDINGS: There is visualization of a single gestational sac in a normal intrauterine position. The gestational sac shape is within normal limits. There is a visualized yolk sac. The yolk sac measures 4 mm. The placenta is non-visualized. There is visualization of a live embryo. The crown-rump length (CRL) measures 3.5 cm, indicating an estimated gestational age (EGA) of 10 weeks, 1 days. There is demonstrated cardiac activity with a heart rate of 169 bpm. The estimated gestation age (EGA) by LMP is 10 weeks, 0 days. The estimated date of delivery (CORDELIA) by LMP is 12/27/2021. The estimated gestation age (EGA) by US is 10 weeks, 1 days. The estimated date of delivery (CORDELIA) by US is 12/26/2021. The uterus measures 12 cm x 9.8 cm x 6.1 cm. There is no demonstrated uterine fibroid. The cervix is closed. The right ovary measures 4.3 cm x 2.2 cm x 1.7 cm. There is no right ovarian cyst. There is no visualized right adnexal mass or complex lesion. The left ovary measures 2.4 cm x 2.8 cm x 2.2 cm. There is no left ovarian cyst. There is no visualized left adnexal mass or complex lesion. There is no fluid in the cul de sac. US/Init OB < 14Wks US IMPRESSION: Single live intrauterine gestation with a mean gestational age of 10 weeks and 1 day. Electronically Signed: Cosme Alford MD at 13:18 EST , Service support ,
== END 2021-05-31 23:59 | disposition home or self-care (01) ==
LOC: OPUS 08:03
PROVIDERS: PCP Family Medicine; Referring Provider Obstetrics & Gynecology; Visit Provider Obstetrics & Gynecology
DX: Z34.81 Encounter for supervision of other normal pregnancy, first trimester (principal)
CPT/HCPCS: 76801

== ENCOUNTER 2021-06-04 07:19 | Outpatient (CLI) | payer OTHER, SELFPAY ==
--- NOTE | 2021-06-04 07:21 | US_ITS ---
STUDY: ABDOMINAL ULTRASOUND - RIGHT UPPER QUADRANT REASON FOR VISIT: Female, 25 years old STAGING BREAST CANCER TECHNIQUE: Ultrasound evaluation of the right upper quadrant was performed with real-time and static rae-scale imaging. TECHNICAL QUALITY: Adequate. COMPARISON: Comparison is made with prior examination of 07/31/2018. FINDINGS: Liver: The liver measures 16.1 cm. There is normal echogenicity of the liver. The bile ducts are within normal limits. There is hepatic color flow. The direction of portal flow is hepatopetal. There is no demonstrated mass lesion. Gallbladder: Normal distended gallbladder. The gallbladder wall measures 2 mm. There is a negative sonographic Zepeda''s sign. There is no pericholecystic fluid. There are no gallstones. Common Bile Duct (C.B.D.): The common bile duct measures 3 mm. Pancreas: Normal size of the head, body and tail of the pancreas. There is normal echogenicity of the pancreas. There is no demonstrated pancreatic mass or cyst. Right Kidney: Normal size of the right kidney. The right kidney measures 10.8 cm x 5 cm x 5 cm. Normal renal cortex. The right cortex measures 1.6 cm. There is no demonstrated renal mass or cyst. There is no right hydronephrosis. US/Liver IMPRESSION: Normal right upper quadrant ultrasound examination. Electronically Signed: Cosme Alford MD at 10:10 EST , Service support ,
--- NOTE | 2021-06-04 07:21 | US_ITS ---
STUDY: ULTRASOUND BREAST - RIGHT REASON FOR EXAM: Female, 25 years old. Staging for breast cancer. TECHNIQUE: Axial and longitudinal images of the RIGHT breast were performed with a high resolution ultrasound transducer. # OF IMAGES: 46 COMPARISON: None. FINDINGS: RIGHT Breast: Targeted ultrasound of the right axillary region was obtained. There is a 2.4 cm x 2.2 cm x 1 cm hypoechoic solid nodule most likely representing a lymph node. Increased vascularity is seen. There is also evidence of a 1.5 cm x 1.2 cm x 0.7 cm hypoechoic nodule with central increased echotexture suggestive of a benign-appearing lymph node. A smaller lymph node measuring 1 cm x 0.8 signed by 0.4 cm seen as well. US/Breast Limited Unilateral IMPRESSION: There is a dominant 2.4 cm x 2.27 x 1 cm axillary lymph node with increased vascularity. Biopsy recommended. ASSESSMENT CATEGORY: BIRADS Category 4: Suspicious - Biopsy Should Be Considered. A letter regarding these results will be sent to the patient by the facility within 30 days. Electronically Signed: Cosme Alford MD at 10:07 EST , Service support ,
== END 2021-06-04 23:59 | disposition short-term general hospital (02) ==
LOC: US 07:19
PROVIDERS: PCP Family Medicine; Referring Provider Internal Medicine Hematology & Oncology; Visit Provider Internal Medicine Hematology & Oncology
DX: C50.411 Malignant neoplasm of upper-outer quadrant of right female breast (principal); Z17.1 Estrogen receptor negative status [ER-]
CPT/HCPCS: 76882; 76642; 76705

== ENCOUNTER 2021-06-04 08:29 | Day surgery (SDC) | payer OTHER, SELFPAY ==
[2021-06-04] VITALS (7 sets, daily range): BP systolic 107–115; BP diastolic 49–61; PULSE 48–63; RESP 16–18; TEMP 36.3–36.4; O2SAT 10–100; BMI 24.8
--- NOTE | 2021-06-04 08:52 | HP.PCM.SX_ITS ---
HPI - General HPI Narrative SUGEY BLACK, is a 25 F who presents for port placement. Patient requires port placement for chemotherapy. [facility] Medical History (Updated 06/04/21 @ 08:[address] Jared Scott MD) Anemia Breast cancer of upper-outer quadrant of right female breast CINV (chemotherapy-induced nausea and vomiting) Encounter for education Wears glasses Wears glasses Home Medications Prenatabs FA 1 tab PO DAILY 09/19/16 [History Last Taken 05/27/20 vitamin] docusate sodium [Colace] 100 mg PO BID PRN PRN #60 cap 06/22/18 [Rx Last Taken 05/27/20] ondansetron 4 mg PO Q8H PRN PRN 11/01/19 [History Last Taken Unknown] Allergy/AdvReac Type Severity Reaction Status Date / Time No Known Allergies Allergy Verified 06/04/21 08:33 Family History Grandfather Hypertension Grandmother Myocardial infarction Surgical History [place] teeth extracted Social History household members: significant other and children current occupational status: employed Smoking Status: Never smoker alcohol intake: never substance use type: does not use caffeine: No ROS Constitutional Constitutional: Denies anorexia or fatigue Eyes Eyes: Denies blurry vision ENT HEENT: Denies abnormal hearing Cardiovascular Cardiovascular: Denies chest pain Respiratory/Chest Respiratory/Chest: Denies cough or dyspnea Gastrointestinal Gastrointestinal: Denies abdominal pain, melena or nausea Musculoskeletal Musculoskeletal: Denies abnormal gait Integumentary Integumentary: Denies new lesions Neurologic Neurologic: Denies abnormal gait Endocrine Endocrinology: Denies [place] Hematologic/Lymphatic Hematologic/Lymphatic: Denies easy bleeding Physical Exam Const alert and oriented x3 Resp normal respiratory effort and normal air movement Cardio regular rate and regular rhythm GI soft to palpation, non-tender and non-distended Assessment & Plan Assessment/Plan (1) Encounter for adjustment and management of vascular access device: PLAN: Patient is here for placement of chest port. I discussed left chest port placement utilizing the left IJ with the patient in detail. I discussed the risks including not limited to bleeding, infection, pneumothorax. I discussed the risks of DVT and line infection. The patient understands the risks and is willing to proceed. Jared Scott MD Pager: [facility] [address] [place] [address] [address] [place] [address] Office:
[2021-06-04] MEDS: Lactated Ringers 1,000 ML 15 ML IV (09:05)
[2021-06-04] MEDS: Bupivacaine Mpf 0.5% 30 ML VIAL (10:15)
--- NOTE | 2021-06-04 10:46 | RAD_ITS ---
STUDY: X-RAY CHEST REASON FOR EXAM: Female, 25 years old. PORT PLACEMENT TECHNIQUE: Single AP portable view of the chest. COMPARISON: Comparison is made with prior study dated 07/12/2017. FINDINGS: A left-sided mich catheter has been placed. The tip is in the midportion of the superior vena cava. The lungs are clear and expanded. There is no demonstrated pleural abnormality. Normal size heart. Normal mediastinum and willard. Normal visualized pulmonary arteries. Normal visualized aortic arch and descending thoracic aorta. Normal visualized thoracic spine. Normal visualized ribs, clavicles, and shoulders. There is no demonstrated abnormality of the visualized soft tissue structures of the upper abdomen. RAD/CXR for Line Placement IMPRESSION: The tip of the left portacatheter is in the midportion of the superior vena cava. Electronically Signed: Cosme Alford MD at 11:11 EST , Service support ,
--- NOTE | 2021-06-04 10:56 | OP.PCM_ITS ---
Problems Associated Problem List Diagnoses (1) Encounter for adjustment and management of vascular access device: (2) Breast cancer of upper-outer quadrant of right female breast: Report of Operation Date of Procedure: 06/04/21 Pre-Operative Diagnosis: Need for vascular access For chemotherapy Post-Operative Diagnosis: Same Surgery/Procedure Performed:: Ultrasound fluoroscopy-guided left chest port placement utilizing left IJ Description of Procedure: After obtaining informed consent patient was brought back to the operating room MAC anesthesia was induced and the left chest and neck were prepped in normal sterile fashion. Ultrasound was used to evaluate both IJs and the left IJ was selected. Next, using a needle, the left IJ was accessed and a guidewire was passed on into the superior vena cava under fluoroscopy guidance. A small incision was made over the puncture site and the dilator introducer was placed over the guidewire. Next this was capped and the pocket was made for the port. 1% lidocaine with epinephrine was injected in the proposed port site. An incision was made with scalpel. Electrocautery was used to make a pocket under the skin and subcutaneous tissue. Hemostasis was obtained. Next, the catheter was tunneled up to the neck incision site and placed through the introducer. The peel-away introducer was removed and the position of the catheter was confirmed on fluoroscopy. Next, the catheter was trimmed and attached to the port with the locking device. Interrupted 2-0 Vicryl sutures were used to anchor the port to the chest wall and then the port was placed inside the pocket. The pocket was then flushed with saline and the port irrigated with saline. There was good blood return and the port flushed easily. Next, heparin was injected into the port. The skin was closed with subcutaneous interrupted 3-0 Vicryl sutures. A single 3-0 Vicryl sutures placed under the skin at the neck incision site. Steri-Strips were placed as well as op sites. Patient tolerated procedure well, was taken to PACU in stable condition. Chest x-ray will be obtained. Grafts/Implants Used: 8 [place] PowerPort Admit VTE Documentation VTE Mechan Device Prophylaxis: SCD's
--- NOTE | 2021-06-04 10:59 | EX.PCM.DISCH ---
Discharge Instructions Procedure Port-A-Cath Diet Discharge Diet: Light diet - advance as tolerated (Pain medication may cause nausea. You should typically eat light foods as you take your pain medication.) Activity Discharge Activity: Return to Normal Activity and May Shower (with your bandage in place in 1-2 days after surgery. DO NOT SHOWER WHEN YOUR PORT IS ACCESSED.) Dressing / Incision Call your doctor if your incision/area has: Continuous Slow Oozing, Sudden Increased Bleeding, Increased Pain/ Swelling, Increased Redness and Foul Smelling Discharge Call your doctor if you observe: Fever of 101 or Higher Remove Dressing in: 2 days Cleanse incision/area with: Soap & Water Follow Up Care Please Follow Up With: Jared Scott MD When: as needed [phone] Test Results: Test results from this visit will be discussed in further detail at your follow-up appointment, if applicable. Discharge Plan Admission Attending Provider: Jared Scott Primary Care Provider: Moy Carson Discharge Orders/Prescriptions Prescriptions: No Action Prenatabs FA 1 tab PO DAILY RF: 0 docusate sodium [DOK] 100 MG capsule 100 mg PO BID PRN PRN (Reason: Constipation) Qty: 60 RF: 0 ondansetron 4 MG tablet,disintegrating 4 mg PO Q8H PRN PRN (Reason: Nausea) RF: 0 Referrals / Follow Up: Moy Carson MD [Primary Care Provider] - Disposition Disposition (needs filled in before D/C Order can be placed): Home, Self Care
== END 2021-06-04 23:59 | disposition home or self-care (01) ==
LOC: SDC 08:30 → AC 08:31
PROVIDERS: PCP Family Medicine; Referring Provider Surgery; Visit Provider Surgery
PROC: (CPT 36561; principal; 2021-06-04 09:45)
DX: Z45.2 Encounter for adjustment and management of vascular access device (principal); C50.411 Malignant neoplasm of upper-outer quadrant of right female breast
CPT/HCPCS: 36561; 00532; 71045; 77001; 87426; J7120; C1788; J2405

== ENCOUNTER 2021-06-08 10:55 | Outpatient (CLI) | payer OTHER, SELFPAY ==
--- NOTE | 2021-06-08 10:59 | ECHODONC_ITS ---
Version 2 Reason For Study: MALIGNANT NEOPLASM OF BREAST Procedure This was a 2D Doppler, Color Flow transthoracic echocardiogram. Myocardial strain analysis was performed in this exam to aid in the assessment of cardiac function. Exam performed in department. Left Ventricle Normal LV size. Left ventricular systolic function is normal. The estimated ejection fraction is 60 %. Normal diastology for age. No regional wall motion abnormalities noted. Right Ventricle Normal RV size. Normal systolic function. Atria Normal left atrium. Normal right atrium. Mitral Valve Normal mitral valve. Mild (1+) mitral valve insufficiency. Tricuspid Valve Normal tricuspid valve. Mild tricuspid valve insufficiency. Pulmonary artery systolic pressure is 26 mmHg. Aortic Valve Normal aortic valve. Trisinus/trileaflet aortic valve. Pulmonic Valve Normal pulmonic valve. Great Vessels Normal aortic root. The pulmonary artery is normal size. Normal inferior vena cava. Pericardium/Pleural No pericardial effusion. MMode/2D Measurements & Calculations LVIDd: 4.9 cm IVSd: 0.56 cm Ao root diam: 2.3 cm LVIDs: 3.5 cm LVPWd: 0.59 cm RVDd: 3.5 cm FS: 28.9 % LAV(MOD-bp): 50.6 ml LA A4 area: 17.4 cm2 LA dimension(2D): 3.4 cm LAV(MOD-bp) Indexed: 30.4 ml/m2 LAV(MOD-sp2): 47.3 ml LAV(MOD-sp4): 46.8 ml RA A4 area: 12.2 cm2 Doppler Measurements & Calculations MV E max dorian: 79.3 cm/sec Lat Peak E' Dorian: 17.8 cm/sec Med Peak E' Dorian: 14.3 cm/sec MV A max dorian: 45.0 cm/sec E/E' lat: 4.5 E/E' med: 5.6 MV E/A: 1.8 Ao V2 max: 132.1 cm/sec LV V1 max: 123.0 cm/sec TR max dorian: 230.9 cm/sec Ao max P.0 mmHg LV V1 max P.1 mmHg TR max P.3 mmHg ECHO/ONC Echo Complete Interpretation Summary Normal LV size. Left ventricular systolic function is normal. The estimated ejection fraction is 60 %. Mild tricuspid valve insufficiency. The global longitudinal strain is normal. The global longitudinal strain = -19. 5 % (normal). Ordering Physician: Paz Hurley Referring Physician: FINA SAMAYOA Performed By: Maria Lopez, WADECS, RVT
== END 2021-06-08 23:59 | disposition short-term general hospital (02) ==
LOC: US 10:57
PROVIDERS: PCP Family Medicine; Referring Provider Internal Medicine Hematology & Oncology; Visit Provider Internal Medicine Hematology & Oncology
DX: C50.411 Malignant neoplasm of upper-outer quadrant of right female breast (principal); Z17.1 Estrogen receptor negative status [ER-]; D64.9 Anemia, unspecified
CPT/HCPCS: 93306; 93356

== ENCOUNTER 2021-06-09 12:09 | Outpatient (CLI) | payer OTHER, SELFPAY ==
[2021-06-09 13:50] LABS: ALB/GLOB Ratio 0.9 RATIO (0.9-2.4); AST(SGOT) 10 U/L (15-37); Alanine Aminotransfer ALT/SGPT 16 U/L (13-56); Albumin, Serum 3.6 g/dL (3.2-5.0); Alkaline Phosphatase 53 U/L (45-117); Anion Gap 6 (5-15); BUN 10 mg/dL (7-18); BUN/Creat Ratio 15.9 RATIO (10-20); Calcium,Total 9.6 mg/dL (8.5-10.1); Chloride 104 mmol/L (98-107); Creatinine, Serum 0.63 mg/dL (0.55-1.02); EST Glomerular Filtration Rate 120 mL/min (>60); Est Glom Filt Rate - Afr Amer 145 mL/min (>60); Ferritin 67 ng/mL (8-252); Globulin 3.9 g/dL (2.2-4.2); Glucose 81 mg/dL (74-106); Iron 59 ug/dL (50-170); Iron Binding Capacity,Total 311 ug/dL (250-450); LDH 134 U/L (84-246); Potassium 3.5 mmol/L (3.5-5.1); Protein, Total 7.5 g/dL (6.4-8.2); Sodium Level 137 mmol/L (136-145); Uric Acid 2.7 mg/dL (2.6-6.0)
[2021-06-09 13:51] LABS: Vitamin B12 502 pg/mL (211-911)
== END 2021-06-09 23:59 | disposition short-term general hospital (02) ==
LOC: WOBLAB 12:11
PROVIDERS: PCP Family Medicine; Visit Provider Obstetrics & Gynecology
DX: E55.9 Vitamin D deficiency, unspecified (principal); Z36.9 Encounter for antenatal screening, unspecified; Z13.21 Encounter for screening for nutritional disorder
CPT/HCPCS: 36415; 80053; 82306; 82607; 82728; 83540; 83550; 83615; 84550

== ENCOUNTER 2021-09-10 15:03 | Outpatient (CLI) | payer OTHER, SELFPAY ==
--- NOTE | 2021-09-10 15:05 | US_ITS ---
STUDY: SECOND AND THIRD TRIMESTER OBSTETRICAL ULTRASOUND - LIMITED REASON FOR EXAM: Female, 26 years old. HIGH RISK PRIOR ULTRASOUND: 05/31/2021 TECHNIQUE: Transabdominal TECHNICAL QUALITY: Adequate. FINDINGS: There is a single intrauterine fetus. The fetus is in a breech presentation. There is demonstrated cardiac activity with a heart rate of 158 bpm. There is a normal amniotic fluid volume. The largest amniotic fluid pocket measures 2.9 cm. The amniotic fluid index (DEANDRE) is 16.5 cm. The placenta is posterior in location and is not low lying. There are Grade 0 placental changes. The cervix measures cm in length: 3.1. BIOMETRY: BPD: 59 mm: 24 weeks, 0 days HC: 211 mm: 24 weeks, 1 days AC: 196 mm: 24 weeks, 1 days FL: 44 mm: 24 weeks, 3 days CI: 76 FL/AC: 23 FL/BPD: 75 HC/AC: 1.13 age by current US: 24 weeks, 1 days. CORDELIA by current US: 8.4.22. Estimated weight: 687 grams, +/- 103 grams, 31 %. age by prior US: 24 weeks, 6 days. CORDELIA by prior US: 7.30.22. Age by LMP: 24 weeks, 4 days. CORDELIA by LMP: 8.1.22. US/OB Limited With Biometrics IMPRESSION: There is a single live intrauterine with a heart rate of 158 bpm. age by current US: 24 weeks, 1 days. CORDELIA by current US: 8.4.22. Estimated weight: 687 grams, +/- 103 grams, 31 %. Electronically Signed: Eric Redman MD at 21:29 EDT ,
== END 2021-09-10 23:59 | disposition home or self-care (01) ==
LOC: US 15:03
PROVIDERS: PCP Family Medicine; Visit Provider Obstetrics & Gynecology
DX: O09.92 Supervision of high risk pregnancy, unspecified, second trimester (principal); Z85.3 Personal history of malignant neoplasm of breast
CPT/HCPCS: 76816

== ENCOUNTER → 2021-09-30 | Outpatient (CLI) | payer OTHER, SELFPAY | END | disposition home or self-care (01) | LOC: WOBLAB 14:30 | PROVIDERS: PCP Family Medicine; Visit Provider Obstetrics & Gynecology | DX: Z34.82 Encounter for supervision of other normal pregnancy, second trimester (principal) ==

== ENCOUNTER → 2021-10-08 | Outpatient (CLI) | payer OTHER, SELFPAY ==
--- NOTE | 2021-10-08 15:30 | US_ITS ---
STUDY: SECOND AND THIRD TRIMESTER OBSTETRICAL ULTRASOUND - LIMITED REASON FOR EXAM: Female, 26 years old. SUPERVISION HIGH RISK PRIOR ULTRASOUND: 09/10/2021 TECHNIQUE: Transabdominal TECHNICAL QUALITY: Adequate. FINDINGS: There is a single intrauterine fetus. The fetus is in a cephalic presentation. There is demonstrated cardiac activity with a heart rate of 154 bpm. There is a normal amniotic fluid volume. The largest amniotic fluid pocket measures 3.5 cm. The amniotic fluid index (DEANDRE) is 11 cm. The placenta is posterior in location and is not low lying. There are Grade 1 placental changes. The cervix measures cm in length: 3. BIOMETRY: BPD: 71 mm: 28 weeks, 2 days HC: 267 mm: 29 weeks, 1 days AC: 225 mm: 26 weeks, 6 days FL: 53 mm: 28 weeks, 0 days CI: 74 FL/AC: 23 FL/BPD: 74 HC/AC: 1.19 age by current US: 28 weeks, 1 days. CORDELIA by current US: 8.4.22. Estimated weight: 1094 grams, +/- 164 grams, 10.97 %. age by prior US: 28 weeks, 1 days. CORDELIA by prior US: 8.4.22. Age by LMP: 28 weeks, 4 days. CORDELIA by LMP: 8.1.22. US/OB Limited With Biometrics IMPRESSION: There is a single live intrauterine with a heart rate of 154 bpm. age by current US: 28 weeks, 1 days. CORDELIA by current US: 8.4.22. Estimated weight: 1094 grams, +/- 164 grams, 10.97 %. EFW is less than 10%. Intrauterine growth restriction (IUGR) or Small for gestational age (SGA) should be considered. Electronically Signed: Eric Redman MD at 19:08 EDT ,
== END | disposition home or self-care (01) ==
LOC: US 15:27
PROVIDERS: PCP Family Medicine; Referring Provider Obstetrics & Gynecology; Visit Provider Obstetrics & Gynecology
DX: O09.92 Supervision of high risk pregnancy, unspecified, second trimester (principal); Z85.3 Personal history of malignant neoplasm of breast
CPT/HCPCS: 76816

== ENCOUNTER → 2021-11-03 | Outpatient (CLI) | payer OTHER, SELFPAY ==
--- NOTE | 2021-11-03 09:48 | VDUE_ITS ---
Reason For Study: Pain Left Proximal Left jugular vein is spontaneous, widely patent, phasic, with no intraluminal echogenicity noted. Left subclavian vein is spontaneous, widely patent, phasic, with no intraluminal echogenicity noted. Left Arm Left axillary vein is spontaneous, patent, phasic, competent, compressible and demonstrates augmentation. Left brachial vein is compressible. Left cephalic vein is compressible. Left basilic vein is compressible. Left Lower Arm Left radial vein is compressible. Left ulnar vein is compressible. Patient Safety Preliminary report sent to [facility]. VL/Venous Duplex US, Unilateral Interpretation Summary No evidence for acute deep venous thrombosis[left] upper extremity with patent and compressible cephalic and basilic veins. Ordering Physician: France Coates Referring Physician: Tera Carson MD Performed By: Lennie Ford RVT ?
== END | disposition home or self-care (01) ==
LOC: CVS 09:47
PROVIDERS: PCP Family Medicine; Referring Provider Nurse Practitioner Family; Visit Provider Nurse Practitioner Family
DX: M79.602 Pain in left arm (principal)
CPT/HCPCS: 93971

== ENCOUNTER 2021-11-11 08:45 | Outpatient (CLI) | payer OTHER, SELFPAY ==
[2021-11-11 09:02] VITALS: BMI 28.1
--- NOTE | 2021-11-11 09:10 | NURSING ---
temp 97.5 pulse 75 resp. 16 bp 102/58. pt here for celestone injection
[2021-11-11 09:11] VITALS: BP 102/58; PULSE 75
[2021-11-11] MEDS: Betamethasone/Betamethasone 30 MG/5 ML Vial 12 MG IM (10:01)
--- NOTE | 2021-11-11 18:18 | OB.TRI.NOTE ---
HPI - General HPI Narrative SUGEY BLACK, is a 26 F who presents for first dose of celestone PFSH PFSH Medical History Anemia Breast cancer of upper-outer quadrant of right female breast CINV (chemotherapy-induced nausea and vomiting) Dermatitis Encounter for chemotherapy management Encounter for education Headache Iron deficiency anemia due to chronic blood loss Left arm pain Palpitation Wears glasses Wears glasses Home Medications Prenatabs FA 1 tab PO DAILY vitamin 09/19/16 [History Last Taken 11/10/21] docusate sodium 100 mg capsule (DOK) 100 mg PO BID PRN PRN Constipation #60 caps 06/22/18 [Rx Last Taken 11/10/21] lidocaine-prilocaine 2.5 %-2.5 % topical cream 1 applic topical ONCE 06/23/21 [History Last Taken 11/10/21] famotidine 10 mg tablet 20 mg PO DAILY 07/28/21 [History Last Taken 11/10/21] ondansetron HCl 4 mg tablet 4 mg PO Q8H 08/18/21 [History Last Taken Unknown] aspirin 81 mg tablet,delayed release (Adult Low Dose Aspirin) 81 mg PO DAILY 09/15/21 [History Last Taken 11/10/21] loratadine 10 mg tablet (Claritin) 10 mg PO .COMPLEX 09/27/21 [History Last Taken 11/10/21] sennosides 8.6 mg capsule (senna) 8.6 mg PO DAILY 09/27/21 [History Last Taken Unknown] enoxaparin 40 mg/0.4 mL subcutaneous syringe (Lovenox) 40 mg subcut DAILY 10/06/21 [History Last Taken 11/10/21] Allergy/AdvReac Type Severity Reaction Status Date / Time No Known Allergies Allergy Verified 11/10/21 13:05 Family History Grandfather Hypertension Grandmother Myocardial infarction Surgical History [place] teeth extracted Social History household members: significant other and children current occupational status: employed Smoking Status: Never smoker alcohol intake: never substance use type: does not use caffeine: No History Elective abortions Hx Para 2 Spontaneous abortions Hx # Term Pregnancies Ectopic pregnancies Hx # Pregnancies Multiple births # of living children Assessment & Plan (1) : PLAN: Pt presents for first dose of celestone
== END 2021-11-11 10:30 | disposition home or self-care (01) ==
LOC: WPOUT 08:58 → WP 08:59
PROVIDERS: PCP Family Medicine; Referring Provider Obstetrics & Gynecology; Visit Provider Obstetrics & Gynecology
DX: O26.20 Pregnancy care for patient with recurrent pregnancy loss, unspecified trimester (principal); Z85.3 Personal history of malignant neoplasm of breast; Z3A.00 Weeks of gestation of pregnancy not specified
CPT/HCPCS: 99218; G0378; J0702

== ENCOUNTER 2021-11-12 09:15 | Outpatient (CLI) | payer OTHER, SELFPAY ==
[2021-11-12 09:42] VITALS: BMI 28.0
[2021-11-12 10:29] VITALS: BP 109/59; PULSE 97
[2021-11-12 10:30] VITALS: BP 109/59; PULSE 94; RESP 18; TEMP 36.9; O2SAT 98
[2021-11-12] MEDS: Betamethasone/Betamethasone 30 MG/5 ML Vial 12 MG IM (10:31)
[2021-11-12 10:36] VITALS: BMI 28.5
--- NOTE | 2021-11-12 19:51 | OB.TRI.HP_ITS ---
HPI - General HPI Narrative SUGEY BLACK, is a 26 F who presents for second dose of Celestone PFSH PFSH Medical History Anemia Breast cancer of upper-outer quadrant of right female breast CINV (chemotherapy-induced nausea and vomiting) Dermatitis Encounter for chemotherapy management Encounter for education Exposure to COVID-19 virus Headache Iron deficiency anemia due to chronic blood loss Left arm pain Palpitation Wears glasses Wears glasses Home Medications docusate sodium 100 mg capsule (DOK) 100 mg PO BID PRN PRN Constipation #60 caps 06/22/18 [Rx Last Taken 11/10/21] lidocaine-prilocaine 2.5 %-2.5 % topical cream 1 applic topical ONCE 06/23/21 [History Last Taken 11/10/21] ondansetron HCl 4 mg tablet 4 mg PO Q8H 08/18/21 [History Last Taken Unknown] aspirin 81 mg tablet,delayed release (Adult Low Dose Aspirin) 81 mg PO DAILY 09/15/21 [History Last Taken 11/10/21] loratadine 10 mg tablet (Claritin) 10 mg PO .COMPLEX 09/27/21 [History Last Taken 11/10/21] sennosides 8.6 mg capsule (senna) 8.6 mg PO DAILY 09/27/21 [History Last Taken Unknown] enoxaparin 40 mg/0.4 mL subcutaneous syringe (Lovenox) 40 mg subcut DAILY 10/06/21 [History Last Taken 11/10/21] cholecalciferol (vitamin D3) 125 mcg (5,000 unit) capsule 125 mcg PO DAILY 11/12/21 [History Last Taken Unknown] famotidine 20 mg tablet 20 mg PO BID 11/12/21 [History Last Taken Unknown] prenat.vits,jyoti,bhy-bvrg-ziafp 1 tab PO DAILY 11/12/21 [History Last Taken Unknown] Allergy/AdvReac Type Severity Reaction Status Date / Time No Known Allergies Allergy Verified 11/12/21 08:34 Family History Grandfather Hypertension Grandmother Myocardial infarction, Onset Age: 83 Surgical History [place] teeth extracted Social History household members: significant other and children current occupational status: employed Smoking Status: Never smoker alcohol intake: never substance use type: does not use caffeine: No History Elective abortions Hx Para 2 Spontaneous abortions Hx # Term Pregnancies Ectopic pregnancies Hx # Pregnancies Multiple births # of living children Assessment & Plan (1) : PLAN: Patient arrives for second dose of Celestone. Okay to discharge home
== END 2021-11-12 10:38 | disposition home or self-care (01) ==
LOC: WPOUT 09:20 → WP 09:21
PROVIDERS: PCP Family Medicine; Visit Provider Obstetrics & Gynecology
DX: O26.20 Pregnancy care for patient with recurrent pregnancy loss, unspecified trimester (principal); Z3A.00 Weeks of gestation of pregnancy not specified; Z85.3 Personal history of malignant neoplasm of breast
CPT/HCPCS: 96372; 99218; G0378; J0702

== ENCOUNTER → 2021-11-17 | Outpatient (CLI) | payer OTHER, SELFPAY ==
--- NOTE | 2021-11-17 11:42 | ECHODONC_ITS ---
Reason For Study: Dyspnea/SOB Procedure This was a 2D Doppler, Color Flow transthoracic echocardiogram. Myocardial strain analysis was performed in this exam to aid in the assessment of cardiac function. Exam performed in department. Left Ventricle Normal LV size. The estimated ejection fraction is 47 %. There is mild global hypokinesis of the left ventricle. Right Ventricle Normal RV size. Normal systolic function. Atria Normal left atrium. Normal right atrium. Mitral Valve Normal mitral valve. Tricuspid Valve Normal tricuspid valve. Aortic Valve Normal aortic valve. Trisinus/trileaflet aortic valve. Pulmonic Valve Normal pulmonic valve. Great Vessels Normal aortic root. Pericardium/Pleural No pericardial effusion. MMode/2D Measurements & Calculations LVIDd: 4.6 cm IVSd: 0.64 cm Ao root diam: 2.4 cm LVIDs: 3.5 cm LVPWd: 1.1 cm LA dimension: 3.6 cm RVDd: 3.4 cm FS: 24.8 % LAV(MOD-bp): 45.2 ml LVAd ap4: 31.7 cm2 LVAd ap2: 31.8 cm2 LAV(MOD-bp) Indexed: 25.7 ml/m2 LVLd ap4: 8.9 cm LVLd ap2: 8.3 cm LAV(MOD-sp2): 43.9 ml EDV(MOD-sp4): 93.4 ml EDV(MOD-sp2): 97.3 ml LAV(MOD-sp4): 43.6 ml EDV(sp4-el): 95.7 ml EDV(sp2-el): 103.0 ml LVAs ap4: 22.0 cm2 LVAs ap2: 22.5 cm2 LVLs ap4: 7.6 cm LVLs ap2: 7.4 cm ESV(MOD-sp4): 53.0 ml ESV(MOD-sp2): 55.7 ml ESV(sp4-el): 54.6 ml ESV(sp2-el): 58.4 ml EF(MOD-sp4): 43.2 % EF(MOD-sp2): 42.8 % EF(sp4-el): 43.0 % SV(MOD-sp4): 40.4 ml SV(MOD-sp2): 41.6 ml SV(sp4-el): 41.1 ml LA A4 area: 16.2 cm2 RA A4 area: 11.1 cm2 Time Measurements MV dec time: 0.31 sec Doppler Measurements & Calculations MV E max dorian: 60.2 cm/sec Lat Peak E' Dorian: 16.4 cm/sec Med Peak E' Dorian: 10.4 cm/sec MV A max dorian: 56.3 cm/sec E/E' lat: 3.7 E/E' med: 5.8 MV E/A: 1.1 MV V2 max: 81.5 cm/sec MV P1/2t max dorian: 81.9 cm/sec Ao V2 max: 116.5 cm/sec MV max P.7 mmHg MV P1/2t: 83.4 msec Ao max P.4 mmHg MV V2 mean: 46.9 cm/sec MV dec slope: 287.7 cm/sec2 MV mean P.0 mmHg MV V2 VTI: 19.5 cm MVA(P1/2t): 2.6 cm2 LV V1 max: 109.7 cm/sec MR max dorian: 254.5 cm/sec PA V2 max: 110.7 cm/sec LV V1 max P.8 mmHg MR max P.9 mmHg PI end-d dorian: 97.3 cm/sec ECHO/ONC Echo Complete Interpretation Summary Normal LV size. The estimated ejection fraction is 47 %. There is mild global hypokinesis of the left ventricle. The global longitudinal strain is moderately abnormal. Compared to previous jenny dy, the left ventricular systolic function has worsened.. The global longitudinal strain has worsened. Ordering Physician: Óscar Chase Referring Physician: Tera Carson Performed By: Efren Gibson RCS
== END | disposition home or self-care (01) ==
LOC: CVS 11:41
PROVIDERS: PCP Family Medicine; Referring Provider Internal Medicine Cardiovascular Disease; Visit Provider Internal Medicine Cardiovascular Disease
DX: I34.0 Nonrheumatic mitral (valve) insufficiency (principal); R06.02 Shortness of breath
CPT/HCPCS: 93306; 93356

== ENCOUNTER 2021-11-19 13:15 | Outpatient (CLI) | payer OTHER, SELFPAY ==
[2021-11-19 13:32] VITALS: BP 117/59; PULSE 99
[2021-11-19 13:40] VITALS: BMI 28.5
--- NOTE | 2021-11-20 10:22 | OB.TRI.HP_ITS ---
HPI - General HPI Narrative SUGEY BLACK, is a 26 F who presents to labor and delivery with decreased movement. Patient denies any leakage of fluid or other labor symptoms. She is at 34 weeks 4 days gestation. [facility] Medical History Anemia Breast cancer of upper-outer quadrant of right female breast CINV (chemotherapy-induced nausea and vomiting) Dermatitis Encounter for chemotherapy management Encounter for education Exposure to COVID-19 virus Headache Iron deficiency anemia due to chronic blood loss Left arm pain Palpitation Wears glasses Wears glasses Home Medications docusate sodium 100 mg capsule (DOK) 100 mg PO BID PRN PRN Constipation #60 caps 06/22/18 [Rx Last Taken 11/10/21] lidocaine-prilocaine 2.5 %-2.5 % topical cream 1 applic topical ONCE 06/23/21 [History Last Taken 11/10/21] ondansetron HCl 4 mg tablet 4 mg PO Q8H 08/18/21 [History Last Taken Unknown] aspirin 81 mg tablet,delayed release (Adult Low Dose Aspirin) 81 mg PO DAILY 09/15/21 [History Last Taken 11/10/21] loratadine 10 mg tablet (Claritin) 10 mg PO .COMPLEX 09/27/21 [History Last Taken 11/10/21] sennosides 8.6 mg capsule (senna) 8.6 mg PO DAILY 09/27/21 [History Last Taken Unknown] enoxaparin 40 mg/0.4 mL subcutaneous syringe (Lovenox) 40 mg subcut DAILY 10/06/21 [History Last Taken 11/10/21] cholecalciferol (vitamin D3) 125 mcg (5,000 unit) capsule 125 mcg PO DAILY 11/12/21 [History Last Taken Unknown] famotidine 20 mg tablet 20 mg PO BID 11/12/21 [History Last Taken Unknown] prenat.vits,jyoti,tgy-ouqo-ujsls 1 tab PO DAILY 11/12/21 [History Last Taken Unknown] Allergy/AdvReac Type Severity Reaction Status Date / Time No Known Allergies Allergy Verified 11/19/21 13:42 Family History Grandfather Hypertension Grandmother Myocardial infarction, Onset Age: 83 Surgical History [place] teeth extracted Social History household members: significant other and children current occupational status: employed Smoking Status: Never smoker alcohol intake: never substance use type: does not use caffeine: No History Elective abortions Hx Para 2 Spontaneous abortions Hx # Term Pregnancies Ectopic pregnancies Hx # Pregnancies Multiple births # of living children NST FHR Rate Baby A NST Reactive:: Yes FHR Category:: Category I Assessment & Plan (1) Decreased movement: PLAN: Plan 34-week 4-day gestation with decreased movement. Baby started moving after presenting to labor and delivery and nonstress test was reactive. Minimal to no irritability noted on monitor. Will discharge to home with routine labor instructions and movement counts.
== END 2021-11-19 14:15 | disposition home or self-care (01) ==
LOC: WPOUT 13:25 → WP 13:25
PROVIDERS: PCP Family Medicine; Referring Provider Obstetrics & Gynecology; Visit Provider Obstetrics & Gynecology
DX: O36.8130 Decreased fetal movements, third trimester, not applicable or unspecified (principal); Z3A.34 34 weeks gestation of pregnancy; Z85.3 Personal history of malignant neoplasm of breast; O26.23 Pregnancy care for patient with recurrent pregnancy loss, third trimester
CPT/HCPCS: 59025; 59050; 99218; G0378

== ENCOUNTER → 2021-11-25 | Outpatient (CLI) | payer OTHER, SELFPAY | END | disposition home or self-care (01) | LOC: LABSPEC 15:54 | PROVIDERS: PCP Family Medicine; Visit Provider Obstetrics & Gynecology | DX: Z36.85 Encounter for antenatal screening for Streptococcus B (principal) | CPT/HCPCS: 87081 ==

== ENCOUNTER 2021-12-06 06:48 | Inpatient (IN) | payer OTHER, SELFPAY ==
[2021-12-06] VITALS (36 sets, daily range): BP systolic 91–121; BP diastolic 48–64; PULSE 71–102; RESP 16; TEMP 36.2–36.9; O2SAT 96–100; BMI 28.9
[2021-12-06] MEDS: 0.9% Saline Lock 10 ML Syringe IV (07:30)
[2021-12-06 08:03] LABS: Absolute Lymphocyte Count 0.89 X10^3/uL (0.83-4.51); Absolute Neutrophil Count 6.3 X10^3/uL (2.0-7.7); Basophil# 0.03 X10^3/uL; Basophil% 0.4 % (0-1); Eosinophils% 1.3 % (0-5); Hematocrit 30.1 % (37-47); Hemoglobin 9.8 g/dL (12.0-15.0); Lymphocyte # 0.89 X10^3/ul (0.83-4.51); Lymphocyte % 11.4 % (19-41); Mean Corp Hgb Conc 32.6 g/dL (32-36); Mean Corpuscular Hgb 30.7 pg (27.0-32.0); Mean Corpuscular Volume 94.4 fL (81-99); Mean Platelet Vol. 10.2 fl (6.2-12.0); Monocyte# 0.35 X10^3/uL; Monocyte% 4.5 % (0-10); NRBC Flagged by Analyzer 0 % (0-5); Neutrophil # 6.32 X10^3/uL (2.7-7.7); Neutrophil % 80.9 % (47-70); Platelet Count 133 K/mm3 (150-450); RBC Distribution Width CV 14.5 % (11.6-14.6); RBC Distribution Width SD 49.2 fl (35.1-43.9); Red Blood Count 3.19 M/mm3 (4.2-5.4); White Blood Count 7.8 K/mm3 (4.4-11.0)
[2021-12-06] MEDS: Lactated Ringers 1,000 ML 999 ML IV (08:40)
--- NOTE | 2021-12-06 09:02 | PCM.HP.OB ---
HPI - General General Date of Admission: 12/06/21 Date of Service: 12/06/21 Chief Complaint: Induction of labor HPI Narrative SUGEY BLACK, is a 26 F 4 para 3-0-0-3 presenting at 37 weeks gestational age by LMP 03/22/2021 (CRODELIA 12/27/2021) for scheduled induction of labor. is complicated by maternal history of triple negative breast cancer requiring chemotherapy and IUGR by AC (2nd-9th%), EF 2235g (17th%) at US 11/25/21. [facility] Medical History (Updated 12/06/21 @ 09:[address] Rachelle Powers MD) Anemia Breast cancer of upper-outer quadrant of right female breast CINV (chemotherapy-induced nausea and vomiting) Dermatitis Encounter for chemotherapy management Encounter for education Exposure to COVID-19 virus Headache Iron deficiency anemia due to chronic blood loss Left arm pain Palpitation Port-A-Cath in place Transfusion history Wears glasses Home Medications docusate sodium 100 mg capsule (DOK) 100 mg PO BID PRN PRN Constipation #60 caps 06/22/18 [Rx Last Taken 11/10/21] lidocaine-prilocaine 2.5 %-2.5 % topical cream 1 applic topical ONCE 06/23/21 [History Last Taken 11/10/21] ondansetron HCl 4 mg tablet 4 mg PO Q8H 08/18/21 [History Last Taken Unknown] aspirin 81 mg tablet,delayed release (Adult Low Dose Aspirin) 81 mg PO DAILY 09/15/21 [History Last Taken 11/10/21] loratadine 10 mg tablet (Claritin) 10 mg PO .COMPLEX 09/27/21 [History Last Taken 11/10/21] sennosides 8.6 mg capsule (senna) 8.6 mg PO DAILY 09/27/21 [History Last Taken Unknown] enoxaparin 40 mg/0.4 mL subcutaneous syringe (Lovenox) 40 mg subcut DAILY 10/06/21 [History Last Taken 11/10/21] cholecalciferol (vitamin D3) 125 mcg (5,000 unit) capsule 125 mcg PO DAILY 11/12/21 [History Last Taken Unknown] famotidine 20 mg tablet 20 mg PO BID 11/12/21 [History Last Taken Unknown] prenat.vits,jyoti,uqi-czsp-pyjfo 1 tab PO DAILY 11/12/21 [History Last Taken Unknown] Allergy/AdvReac Type Severity Reaction Status Date / Time No Known Allergies Allergy Verified 11/19/21 13:42 Family History Grandfather Hypertension Grandmother Myocardial infarction, Onset Age: 83 Surgical History [place] teeth extracted Social History household members: significant other and children current occupational status: employed Smoking Status: Never smoker alcohol intake: never substance use type: does not use caffeine: No History 4 Elective abortions 0 Hx Para 3 Spontaneous abortions 0 Hx # Term Pregnancies 3 Ectopic pregnancies 0 Hx # Pregnancies 0 Multiple births 0 # of living children 3 Past Pregnancies Del. Date Name GA/Weeks Outcome Route Bth Weight Infant Gen Labor Lgth Anesthesia Del [facility] Provider FOB 11/20/16 Kvng 39 live - full term [id number] Female 18 epidural Yasmin Corbin Gio Gaitan 06/22/18 [place] 40 live - full term [id number] Female 12 epidural Yasmin Shaquille Gaitan 05/20/20 Vijay 39 live - full term [id number] Male 8 none Yasmin Shaquille Giovane Gaitan Delivery Date: 11/20/16 Last Updated by: Rachelle Powers MD fever in labor NST FHR Rate Baby A Baseline: 160 Variability:: Moderate Accelerations:: 15 x 15 Decelerations:: None NST Reactive:: Yes FHR Category:: Category I Uterine Activity:: 0-110 Vital Signs Vital Signs Vital Signs: 12/06/21 07:55 12/06/21 07:55 12/06/21 07:55 Temperature 98.1 F Pulse Rate 83 Blood Pressure 117/55 L BP Systolic 117 BP Diastolic 55 Pulse Ox 12/06/21 07:56 12/06/21 07:56 12/06/21 08:01 Temperature Pulse Rate 93 86 Blood Pressure BP Systolic BP Diastolic Pulse Ox 97 12/06/21 08:01 12/06/21 08:06 12/06/21 08:06 Temperature Pulse Rate 91 Blood Pressure BP Systolic BP Diastolic Pulse Ox 98 98 12/06/21 07:51 Temperature Pulse Rate Blood Pressure BP Systolic BP Diastolic Pulse Ox 100 Weight Weight: 74.162 kg Body Mass Index (BMI) 28.9 Physical Exam Const alert HEENT normocephalic Resp normal respiratory effort, normal air movement and clear to auscultation bilaterally Cardio regular rate and regular rhythm GI normal to inspection, nondistended, normoactive bowel sounds, soft to palpation, non-tender and non-distended Inspection: gravid Narrative: SVE 3/75/-3/soft, posterior per RN exam C. Tal Extremity no calf tenderness and no pedal edema Neuro moves all extremities Labs Labs Labs: Blood Type B POSITIVE Antibody Screen NEGATIVE Hct 30.1 % (37-47) L Hgb 9.8 g/dL (12.0-15.0) L Obstetrics US Syphilis Total Ab Non-reactive Rubella IgG Antibody Reactive (Nonreactive) Hep Bs Antigen Non-Reactive (Nonreactive) Chlamydia DNA (ASHWIN) Negative (Negative) Neisseria gonorrhoeae DNA (ASHWIN) Negative (Negative) HIV 1&2 Antibody Non-Reactive (Nonreactive) Glucose 1 Hr 50 gm 137 mg/dL (70-140) Group B Strep DNA Negative (Negative) Rhogam given: No Assessment & Plan (1) IUGR (intrauterine growth restriction) affecting care of mother: COMMENT: Post 2 course of steroids (2) : PLAN: Cat I-II FHR, FHR initially with tachycardia and normalizing with bolus If remains Cat I will start pitocin Type and cross for hold x 2 U PRBC, hx prior blood transfusion Patient desires tubal sterilization if section.
[2021-12-06] MEDS: Oxytocin 30 units/NS 500 ml 30 UNITS/500 ML IV.SOLN IV (09:28)
[2021-12-06] MEDS: Lactated Ringers 1,000 ML 150 ML IV (09:54)
[2021-12-06] MEDS: LACTATED RINGERS 500 ML 999 ML IV (11:56)
[2021-12-06] MEDS: fentaNYL-bupivacaine (epidural) 100 ML BAG EPIDURAL (12:02)
--- NOTE | 2021-12-06 12:40 | PN.OBGYN_ITS ---
Subjective Subjective No complaints. Comfortable with epidural. Objective Data Objective Data Vital Signs: Vital Signs Temp Pulse BP Pulse Ox 97.4 F L 79 96/53 L 100 12/06/21 11:45 12/06/21 12:09 12/06/21 12:09 12/06/21 11:21 Weight: 74.162 kg Body Mass Index (BMI) 28.9 Intake & Output: Intake and Output for Last 24 Hours 12/04/21 12/05/21 12/06/21 23:59 23:59 23:59 Intake Total 1008.47 / 1008.47 Balance 1008.47 / 1008.47 Lab / Micro Data Result Diagrams: 12/06/21 07:40 Labs: Laboratory Results - last 24 hr 12/06/21 07:40: WBC 7.8, RBC 3.19 L, Hgb 9.8 L, Hct 30.1 L, MCV 94.4, MCH 30.7, MCHC 32.6, RDW Std Deviation 49.2 H, RDW Coeff of Lenora 14.5, Plt Count 133 L, MPV 10.2, Immature Gran % (Auto) 1.500 H, Neut % (Auto) 80.9 H, Lymph % (Auto) 11.4 L, [place] % (Auto) 4.5, Eos % (Auto) 1.3, Baso % (Auto) 0.4, Absolute Neuts (auto) 6.3, Absolute Lymphs (auto) 0.89, Nucleated RBC % 0 12/06/21 07:40: Blood Type B POSITIVE, Antibody Screen NEGATIVE 12/06/21 07:40: Crossmatch See Detail Physical Exam Narrative GEN - NAD, AAO x 3 FHR 145, moderate variability, + accelerations, no decelerations TOCO 2/10 min SVE 3/75/-3, moderate and midposition by my exam Assessment & Plan (1) IUGR (intrauterine growth restriction) affecting care of mother: COMMENT: Post 2 course of steroids (2) : QUALIFIERS: Weeks of gestation: 37 weeks Qualified Code(s): Z3A.37 - 37 weeks gestation of PLAN: Amnitomy performed, clear fluid IUPC placed Continue pitocin as tolerated by mother and fetus
--- NOTE | 2021-12-06 15:17 | PLAC_PTH ---
PATIENT: SUGEY BLACK LOC: WP U#:[id number] AGE/SX: 26/F ROOM: WP0 RE12/06/[address]: Dr. Rachelle Powers MD : 1995 BED: 1 DIS: 12/07/2021 SPEC #: [id number] RECD: 12/06/21 18:08 STATUS: PAYAL PINEDA #: [id number] REE: 12/06/21 15:[address]: Rachelle Steve DEPT: SURGICAL PATHOLOGY RECD BY: Yadira Bradley ENTERED: 12/07/21 08:06 SP TYPE: PLACENTA OTHR DR: Dr. Tera Carson MD Tissues: Placenta, NOS Procedures: Surgery Specimen Level V HEADER OPERATION: Vaginal delivery PRE-OP DIAGNOSIS: iugr, maternal breast CA and chemo TISSUE SUBMITTED: Placenta MICROSCOPIC DIAGNOSIS Maguire placenta (385 gm): Umbilical cord ? trivascular with no evidence of inflammation. Placental membranes - No pathologic change. Placental disc ? Felisa-Fritz change and mildly increased intraparenchymal fibrin plaques. AM:lorrie 12/09/2021 MICROSCOPIC DESCRIPTION Slides are reviewed. GROSS DESCRIPTION SPECIMEN: PLACENTA / CLINICAL INFORMATION: A. Weight: 2.26 kg B. Gestational Age: 37 weeks C. Sex: Female PLACENTAL WEIGHT (POST FIXATION): 385 gm PLACENTAL DIMENSIONS: 15 x 13 x 3.5 cm PLACENTAL SHAPE: Usual ovoid PLACENTAL WEIGHT FOR GESTATIONAL AGE: Within 10-99th percentile MEMBRANES - Present A. Insertion: Marginal B. Site of rupture from edge: 6 cm from edge of placental disc C. Color of membrane: Diallo-rae D. Abnormalities: None UMBILICAL CORD - Present A. Color: Diallo-rae B. Insertion: Paracentral C. Length: 38 cm D. Diameter: 1-1.5 cm E. Number of vessels: Three F. Abnormalities: None PLACENTAL DISC - Present A. Color of surface: Diallo-rae B. surface abnormalities: Focal submembranous blood clots are noted. C. Maternal cotyledons: Intact with minimal tears D. Attached retro placental clot: No clot E. Cut surface: Dark red and spongy F. Lesions: None G. Separate clot: Absent SECTIONS SUBMITTED: 1. Membrane roll 2. Cord, maternal end 3. Cord, end 4. Placental disc, and maternal surfaces 5. Placental disc, and maternal surfaces 6. Placental disc, and maternal surfaces SJ:lorrie 12/08/2021 TC:5 CPT: 42787
--- NOTE | 2021-12-06 15:48 | OP.PCM_ITS ---
Assessment & Plan (1) IUGR (intrauterine growth restriction) affecting care of mother: COMMENT: Post 2 course of steroids (2) : QUALIFIERS: Weeks of gestation: 37 weeks Qualified Code(s): Z3A.37 - 37 weeks gestation of (3) Vacuum extractor delivery, delivered: Vaginal Delivery Maternal Presentation Maternal Presentation: Medically Indicated Induction Type of Induction: Pitocin and Amniotomy Medical Reason for Induction: - (IUGR) Operative Information Date of Procedure: 12/06/21 Pre-Operative Diagnosis: 1. 37 weeks gestation 2. IUGR Post-Operative Diagnosis: 1. 37 weeks gestation 2. IUGR Surgery / Procedure Performed: Vacuum Assisted Vaginal Delivery Type of Anesthesia: Epidural Anesthesiologist: Bee Shaikh Drain: Noe to straight drain Estimated Blood Loss: 150 ml Time of Delivery: 15:17 Findings Description of Procedure: Cat II FHR with deepening variable decelerations occurring. Repeat SVE confirmed patient was FD/+3 station from prior exam of 8cm. She pushed in hands and knees x 1 with no improvement of FHR thus was repositioned into dorsal lithotomy. I advised vacuum assistance with review of risks including scalp edema, laceration, hemorrhage. Patient agreed to proceed. Vacuum was placed to 500mmHg and a single insole tack puller hand 3 pushes was done with delivery of the infant head. The vacuum suction was released with full contact time approximately 1 minute. The infant delivered through a tight nuchal cord that was reduced . Infant was placed on the maternal abdomen and further attended by nursery personnel. The cord was doubly clamped and cut at 5 minutes of life. The placenta delivered spontaneously and appeared intact on inspection. Perineum intact. Sponge counts correct x 2. Cord gases obtained. Presentation: Vertex Amniotic Membrane Rupture Type: Artificial Amniotic Fluid Description: Clear Placental Delivery Description: Spontaneous Placenta Disposition: [facility] Specimen(s) Removed: placenta Cord Vessel Description: 3 Vessels Cord Entanglement: Around neck x 1, tight Nuchal Cord Compression: With compression Cord Gases: ABG and VBG Infant A Gender: Female (1 minute): 8 (5 minute): 9 Delayed Cord Clamping: Yes Post Vaginal Delivery Medications Given After Delivery: IV Pitocin Episiotomy Description: None Laceration: None Complication Complications: None
[2021-12-06] MEDS: Oxytocin 30 units/NS 500 ml 30 UNITS/500 ML IV.SOLN 334 UNITS IV (17:12)
[2021-12-06 18:07] LABS: Pathology Specimen OB SEE PATHOLOGY REPORT
[2021-12-06] MEDS: Acetaminophen 500 MG Tablet 1000 MG PO (18:41)
[2021-12-06] MEDS: Famotidine 20 MG Tablet PO (22:56)
[2021-12-07] VITALS (8 sets, daily range): BP systolic 106–115; BP diastolic 54–75; PULSE 64–86; RESP 16; TEMP 36.2–36.6
[2021-12-07] MEDS: Acetaminophen 500 MG Tablet 1000 MG PO ×2 (03:11→10:28)
--- NOTE | 2021-12-07 09:05 | PCM.PN.OB ---
Subjective Subjective No complaints. Denies painfulness, heavy lochia. She is voiding and ambulating without difficulty since epidural wore off. Mood doing well. Objective Data Objective Data Vital Signs: Vital Signs Temp Pulse Resp BP Pulse Ox O2 Del Method 97.6 F L 86 16 106/56 L 96 Room Air 12/07/21 08:42 12/07/21 08:42 12/07/21 08:42 12/07/21 08:42 12/06/21 20:29 12/06/21 20:29 Oxygen Delivery Method Room Air Weight: 74.162 kg Body Mass Index (BMI) 28.9 Intake & Output: Intake and Output for Last 24 Hours 12/05/21 12/06/21 12/07/21 23:59 23:59 23:59 Intake Total 3232.17 / 3232.17 Output Total 450 / 750 300 / 300 Balance 2782.17 / 2482.17 -300 / -300 Lab / Micro Data Result Diagrams: 12/06/21 07:40 Labs: Laboratory Results - last 24 hr 12/06/21 07:40: Blood Type B POSITIVE, Antibody Screen NEGATIVE 12/06/21 07:40: Crossmatch See Detail ROS Cardiovascular Cardiovascular: Denies dyspnea or edema Respiratory/Chest Respiratory/Chest: Denies chest congestion, cough or dyspnea Physical Exam Const alert, oriented x3 and no apparent distress HEENT normocephalic Resp normal respiratory effort, normal air movement and clear to auscultation bilaterally Cardio regular rate and regular rhythm GI soft to palpation, non-tender and non-distended Uterus Palpation: uterus fundus firm (nontender) Extremity no calf tenderness and no pedal edema Assessment & Plan (1) Vacuum extractor delivery, delivered: PLAN: Doing well Routine postop care hx EF 45% - no si/sx worsening function and exam unremarkable Plan for d/c later today if discharged
--- NOTE | 2021-12-07 09:08 | DCINST_ITS ---
Discharge Instructions Diet Discharge Diet: No restrictions Activity Discharge Activity: Return to Normal Activity and May Shower May resume sexual activity in: 4-6 weeks Lifting Restrictions: 10 lb Dressing / Incision Call your doctor if you observe: Fever of 101 or Higher, Using more than 1 pad per hour, Shortness of breath, Chest pain, Calf discomfort, Uncontrolled pain and - (Persistent or severe headache) Suture Line Care: Avoid Pulling/Pushing Follow Up Care Please Follow Up With: Rachelle Steve MD When: 1-2 weeks by phone Follow up with [facility] for visit in 6 weeks. Test Results: Test results from this visit will be discussed in further detail at your follow- up appointment, if applicable. Discharge Plan Admission Admit Date/Time: 12/06/21 06:48 Attending Provider: Rachelle Steve Primary Care Provider: Moy Carson Discharge Orders/Prescriptions Prescriptions: Continued lidocaine-prilocaine 2.5-2.5 % cream 1 applic topical ONCE enoxaparin [Lovenox] 40 mg/0.4 mL syringe 40 mg subcut DAILY MDD 1 prenat.vits,jyoti,pqm-lqiq-ywsfo Tablet 1 tab PO DAILY cholecalciferol (vitamin D3) 125 mcg (5,000 unit) capsule 125 mcg PO DAILY docusate sodium [DOK] 100 MG capsule 100 mg PO BID PRN PRN (Reason: Constipation) Qty: 60 0RF Discontinued ondansetron HCl 4 mg tablet 4 mg PO Q8H aspirin [Adult Low Dose Aspirin] 81 mg tablet,delayed release (DR/EC) 81 mg PO DAILY senna 8.6 mg capsule 8.6 mg PO DAILY loratadine [Claritin] 10 mg tablet 10 mg PO .COMPLEX Rx Instructions: 10 mg PO every monday before chemo; famotidine 20 mg tablet 20 mg PO BID Referrals / Follow Up: Moy Carson MD [Primary Care Provider] - Disposition Disposition (needs filled in before D/C Order can be placed): Home, Self Care
[2021-12-07] MEDS: Prenatal Vits Tablet 1 TABLET PO (10:28)
[2021-12-07] MEDS: Famotidine 20 MG Tablet PO (10:29)
[2021-12-07] MEDS: Senna/Docusate Sodium 1 Tablet PO (10:29)
[2021-12-07] MEDS: Ibuprofen 600 MG Tablet PO (17:04)
--- NOTE | 2021-12-08 19:21 | CM.ED ---
SW Note Referral Source: emergency medical service manager [facility] Referral Reason: MOB has cancer history SW was unable to see MOB on 12/07/21. emergency medical service manager had just asked that SW meet with patient for support and if any resources were needed. On this date SW called patient. SW introduced self to patient. Patient said that things are going good at the home. SW offered that if social work can offer any support or assistance to contact social work. Patient verbalized understanding. The call was quick as this web content writer heard a nb crying in the background and thus ensuring that patient could tend to the nb. SW remains available if needs arise. Patient is aware that social media strategist at [facility] is a support and resource. Lucille MORIN
== END 2021-12-07 17:30 | disposition home or self-care (01) | DRG 807 ==
PROVIDERS: Student in an Organized Health Care Education/Training Program; Admitting Provider Obstetrics & Gynecology; PCP Family Medicine; Visit Provider Obstetrics & Gynecology
DX: O76 Abnormality in fetal heart rate and rhythm complicating labor and delivery (principal); Z37.0 Single live birth; O36.5930 Maternal care for other known or suspected poor fetal growth, third trimester, not applicable or unspecified; O69.2XX0 Labor and delivery complicated by other cord entanglement, with compression, not applicable or unspecified; Z3A.37 37 weeks gestation of pregnancy; Z85.3 Personal history of malignant neoplasm of breast
CPT/HCPCS: 59025; 59050; 85025; 86850; 86900; 86901; 86920; 86922; 88307; 99218; J7120; A4216; G0378

== ENCOUNTER 2022-02-28 06:01 | Day surgery (SDC) | payer OTHER, SELFPAY ==
[2022-02-28] VITALS (7 sets, daily range): BP systolic 95–110; BP diastolic 52–61; PULSE 48–62; RESP 14–16; TEMP 36.2–36.9; O2SAT 99–100; BMI 25.9
--- NOTE | 2022-02-28 06:08 | RAD_ITS ---
STUDY: X-RAY CHEST REASON FOR EXAM: Female, 26 years old. PREOP/HISTORY OF RADIATION RIGHT BREAST TECHNIQUE: PA and lateral views of the chest. COMPARISON: July 12, 2017 chest x-ray FINDINGS: There is a left-sided Port-A-Cath tip is in the superior vena cava. There is postoperative change right breast soft tissue. The lungs are clear and expanded. There is no demonstrated pleural abnormality. Normal size heart. Normal mediastinum and willard. Normal visualized pulmonary arteries. Normal visualized aortic arch and descending thoracic aorta. Normal visualized thoracic spine. Normal visualized ribs, clavicles, and shoulders. There is no demonstrated abnormality of the visualized soft tissue structures of the upper abdomen. RAD/Chest PA and Lateral IMPRESSION: Port-A-Cath tip in the superior vena cava. No visualized pneumothorax. Postoperative changes right chest/breast soft tissue. Electronically Signed: Kelli Murphy MD at 6:36 EDT ,
[2022-02-28] MEDS: Lactated Ringers 1,000 ML 120 ML IV ×2 (06:49→09:10)
--- NOTE | 2022-02-28 07:05 | PCM.HP.BLA ---
History and Physical Date of Admission: 02/28/22 Intake Vital Signs ? 12/06/2206:16 Height 5 ft 3 in Intake Visit Reasons:?DISCUSS UMBILICAL HERNIA Chief Complaint: umbilical hernia Manager Interface Required: No Is patient in pain?: No Allergies No Known Allergies Allergy (Verified 01/26/22 12:58) Medications docusate sodium 100 mg capsule (DOK) 100 mg PO BID PRN PRN Constipation #60 caps 06/22/18 [Rx Confirmed 01/26/22] lidocaine-prilocaine 2.5 %-2.5 % topical cream 1 applic topical ONCE Check with primary doctor 06/23/21 [History Confirmed 01/26/22] cholecalciferol (vitamin D3) 125 mcg (5,000 unit) capsule 125 mcg PO DAILY 11/12/21 [History Confirmed 01/26/22] Hydrocortisone 2.5%/lidocaine 5% suppository (cmpd) (hydrocortisone 2.5%/lidocaine 5% suppository (compound)) #30 ea 12/21/21 [Rx Confirmed 01/26/22] [facility] Medical History? Anemia Breast cancer of upper-outer quadrant of right female breast CINV (chemotherapy-induced nausea and vomiting) Dermatitis Diastasis of rectus abdominis Encounter for chemotherapy management Encounter for education Exposure to COVID-19 virus Headache Hernia Iron deficiency anemia due to chronic blood loss Left arm pain Palpitation Port-A-Cath in place Transfusion history Wears glasses Surgical History? History of insertion of tunneled central venous catheter (CVC) with port Hx of lumpectomy [place] teeth extracted Family History? Grandfather HypertensionGrandmother Myocardial infarction,? Onset Age: 83 Social History? household members:? significant other and children housing:? house number of children:? 4 current occupational status:? 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 Never smoker alcohol intake:? never substance use type:? does not use caffeine:? No Female Reproductive History Menstrual Ab induced: 0 Ab spontaneous: 0 Ectopics: 0 HPI HPI HPI: SUGEY BLACK, is a 26 F who presents to the office today for discussion of umbilical hernia and removal of port.? Patient is done with chemotherapy for breast cancer and would like her port removed.? Patient also developed an umbilical hernia during her . ROS General General: Yes fatigue and breast cancer; No weight change, appetite, colon cancer or weakness HEENT HEENT: No difficulty swallowing, eye injury, eye surgery, swollen glands or hoarseness Endo Endocrine: No thyroid disease, diabetes mellitus, thyroid cancer, Hair loss, heat intolerance or cold intolerance Skin Skin: No rash or changing moles Breast Breast: No left breast lump, right breast lump, nipple discharge, breast pain, abnormal mammogram, abnormal US or breast enlargement Musc Musculoskeletal: No back problems, arthritis, rheumatoid arthritis, gout or joint pain Cardio Cardiovascular: No murmur, pacemaker, heart disease, atrial fibrillation, high blood pressure, heart attack, heart stent, palpitations, shortness of breat with exertion or chest pain Psych Psychiatric: No depression, anxiety or hearing voices Resp Respiratory: No shortness of breath, No sleep apnea, No cough, No COPD, No asthma, No emphysema and No wheezing Gastro Gastrointestinal: No abdominal pain, No nausea or vomiting, No diarrhea, Yes constipation, No blood in stool, No acid reflux, Yes hemorrhoids, No ulcers, No gallbladder problem and No black,tarry stools Jhon Hematologic: No blood thinners, No blood disorders, No bleeding, Yes anemia and No blood clots Additional Details: Stopped Lovenox 12/14 Stopped ASA 12/06 Neuro Neurologic: No system reviewed and no additional complaints, except as documented, No as per HPI, No abnormal gait, No abnormal hearing, No abnormal movements, No abnormal speech, No behavioral changes, No burning sensations, No confusion, No convulsions, No disequilibrium, No dizziness, No localized weakness, No frequent falls, No headache(s), No lack of coordination, No loss of vision, No memory loss, No numbness, No other visual disturbances, No radicular pain, No restless legs, No sensory deficit, No syncope, No tingling, No tremor(s), No weakness and No other Exam Const General: cooperative Orientation: alert and oriented x3 HENMT Head: normal to inspection Neck Neck: normal visual inspection and full ROM Chest Chest palpation & inspection: normal inspection of the chest Resp Effort & Inspection: normal respiratory effort Auscultation: clear to auscultation bilaterally Cardio Rate: regular rate Rhythm: regular rhythm GI Inspection: non-distended Palpation: soft, hernia umbilical and nontender Skin General: no rashes or lesions noted Neuro General: patient alert and patient oriented x3 Extrem General: full ROM Psych Appearance: grossly normal Mental Status: mental status grossly normal Assessment and Plan Assessment and Plan (1) Encounter for adjustment and management of vascular access device: ?Status:?Acute (2) Umbilical hernia: ?Status:?Acute Plan The patient is having a tubal ligation by OB soon.? I discussed using her umbilical hernia as a port site and then repairing the umbilical hernia on the way out.? The patient has small amount of diastases recti and would like this repaired in the future and in light of this I would not place mesh.? I discussed suture repair of her umbilical hernia.? Patient understands that there is a high recurrence rate and understands the risks of the procedure.? The patient also like her port removed at the same time.? I discussed port removal with her and the risks including modality to bleeding and infection and the patient understands the risks and I will remove the port at the same time of her surgery.? I will coordinate surgery with OB Jared Scott MD Pager: [facility] [address] [place] [address], [address] [place] [address] Office: I have re-examined the patient. There are no clinical changes since date of exam.
[2022-02-28 07:11] LABS: Internal QC Validated? YES +Cl - CLEAR BKGD; Pregnancy, Urine Negative Negative
--- NOTE | 2022-02-28 07:30 | FALS_PTH ---
PATIENT: SUGEY BLACK LOC: [facility] U#:[id number] AGE/SX: 26/F ROOM: RE02/28/[address]: Dr. Octavio Quach MD : 1995 BED: DIS: 02/28/2022 SPEC #: [id number] RECD: 02/28/22 11:09 STATUS: PAYAL REMaurice #: [id number] REE: 02/28/22 07:[address]: Octavio Quach DEPT: SURGICAL PATHOLOGY RECD BY: Yadira Bradley ENTERED: 02/28/22 13:26 SP TYPE: FALL TUBES OTHR DR: Dr. Tera Carson MD Tissues: A - Fallopian tube B - FOREIGN BODY Procedures: Surgery Specimen Level I Surgery Specimen Level II HEADER OPERATION: Laparoscopic salpingectomy PRE-OP DIAGNOSIS: Sterilization, umbilical hernia TISSUE SUBMITTED: A ? Bilateral fallopian tubes, B - Port MICROSCOPIC DIAGNOSIS A. Bilateral fallopian tubes, salpingectomy: Bilateral fallopian tubes, no pathologic diagnosis. Bilateral paratubal cysts. B. Port: Port catheter (gross only). TASHI:lorrie 03/01/2022 MICROSCOPIC DESCRIPTION Slides are reviewed. GROSS DESCRIPTION A - Received in fixative is one container labeled with the patient's name and designated bilateral fallopian tubes. The specimen consists of bilateral fallopian tubes including fimbrial ends measuring 6.5 cm in length and 1 cm in diameter and 6 cm in length and 0.8 cm in diameter. The fallopian tubes are not identified as right or left. One paratubal cyst is noted adjacent to one tube measuring 1 cm in greatest dimension. The other fallopian tube also shows a paratubal cyst measuring 0.5 cm in greatest dimension. Sections reveal unremarkable cut surfaces. Fusing Machine Feeder sections are submitted in two cassettes as follows: 1 - one fallopian tube and adjacent paratubal cyst, 2 - second fallopian tube and adjacent paratubal cyst. B - Received in fixative is one container labeled with the patient's name and designated port. The specimen consists of a reis-white catheter with a port. The catheter measures 17.5 cm in length and 0.2 cm in diameter. The triangular purple port measures 2.5 x 2.5 x 1.2 cm. The inscription on the port is as follows: [employer] [address] CT. The specimen is for gross identification only. / TASHI:lorrie 02/28/2022 TC:5 CPT: 69251 x2, 87811
[2022-02-28] MEDS: Cefazolin 2 GM in 0.9% Normal Saline 100 ML IV (07:44)
--- NOTE | 2022-02-28 08:29 | OP.PCM_ITS ---
Report of Operation Date of Procedure: 02/28/22 Pre-Operative Diagnosis: Desires permanent sterilization Post-Operative Diagnosis: Desires permanent sterilization Surgery/Procedure Performed:: Laparoscopic salpingectomy Description of Surgical Findings:: Surgeon: Octavio Quach MD Anesthesia: General EBL: 10 cc Urine output: 200 cc IV fluids: 600 cc Complications: None Specimen: Bilateral fallopian tubes Findings: Normal uterus, tubes, and ovaries. Dr. Scott performed umbilical hernia repair and port removal, please refer to his dictation Consent: Patient desires permanent sterilization. In need of laparoscopic salpingectomy. Patient understands the risk of the procedure include but are not limited to visceral or vascular injury, prolonged hospitalization, blood loss need for transfusion, reoperation. Patient state understanding and wished to proceed. All questions were answered and consent was signed. Procedure: Patient was brought back to the OR where general anesthesia was found to be adequate. Patient was prepared and draped in a dorsolithotomy position with yellowfin stirrups. A weighted speculum is placed in the posterior aspect of vagina and cervical dilators were used to dilate the cervix. Uterine man ipulator was placed. Dr. Scott used open technique to insert 8 mm supraumbilical midline trocar. Abdomen was insufflated and above findings were noted. Bilateral lower quadrant 5 mm trochars were inserted under direct visualization. Left fallopian tube was identified to the fimbria and using atraumatic grasper and a LigaSure device the mesosalpinx of the left fallopian tube was cut and cauterized, left fallopian tube sent to pathology. In a similar fashion the right fallopian tube was identified to the fimbria and the mesosalpinx was cut and cauterized, right fallopian tube sent to pathology. Good hemostasis was noted bilaterally. Abdomen was desufflated trochars were removed under direct visualization. Dr. Scott closed trocar sites and performed umbilical hernia along with port removal, please refer to his dictation. My portion of procedure good hemostasis was noted, all counts were correct x2. assistant property manager: Ben Ruffin
--- NOTE | 2022-02-28 08:46 | OP.PCM_ITS ---
Report of Operation Date of Procedure: 02/28/22 Pre-Operative Diagnosis: 1. Need for removal of vascular access device 2. Umbilical hernia Post-Operative Diagnosis: Same Surgery/Procedure Performed:: 1. Removal of left chest port 2. Umbilical hernia repair Specimen's removed: Left chest port Description of Procedure: After the patient was asleep and the patient was placed in stirrups and Noe and uterine manipulator placed the abdomen was prepped and draped in usual sterile fashion. A curvilinear incision was marked superior to the umbilicus and then injected with local anesthetic. Incision was made and deepened to the hernia. 8 port was placed through the hernia into the abdomen and the abdomen was insufflated [address] Quach performed bilateral salpingectomy laparoscopically. After he was done with the procedure the umbilical hernia fascia was reapproximated using interrupted 0 Nurolon suture. The incision was then closed with interrupted 4-0 Monocryl sutures and Steri-Strips and a cottonball and bandage were placed. The port sites were also injected with local anesthetic and closed with interrupted 4-0 Monocryl suture and Steri- Strips and bandages were applied. Next the patient was reprepped and draped on the left chest. The prior incision was injected with local anesthetic and excised. The incision was deepened to the port which was removed intact. Electrocautery was used to maintain hemostasis. The cavity was irrigated and then closed with interrupted 4-0 Vicryl suture and Steri-Strips and bandage. Patient tolerated procedure well was woken and taken to PACU in stable condition. Please see Dr. Quach's operative report for his portion of the procedure. Admit VTE Documentation VTE Mechan Device Prophylaxis: SCD's
--- NOTE | 2022-02-28 08:49 | DCINST_ITS ---
Discharge Instructions Diet Discharge Diet: Light diet - advance as tolerated Activity Discharge Activity: May Shower (tomorrow over the bandages) Lifting Restrictions: 20 lbs for 2 weeks Dressing / Incision Call your doctor if your incision/area has: Continuous Slow Oozing, Sudden Increased Bleeding, Increased Pain/ Swelling, Increased Redness, Foul Smelling Discharge and Swelling at the incision site Call your doctor if you observe: Fever of 101 or Higher Remove Dressing in: 3 days (Remove clear bandages in 3-4 days, remove steri strips in 7-10 days) Cleanse incision/area with: Soap & Water Follow Up Care Please Follow Up With: Jared Scott MD When: Please call to schedule 2 week follow up appointment. [phone] Test Results: Test results from this visit will be discussed in further detail at your follow- up appointment, if applicable. Discharge Plan Admission Attending Provider: Octavio Quach Primary Care Provider: Moy Carson Discharge Orders/Prescriptions Prescriptions: New oxycodone-acetaminophen [Percocet] 5-325 mg tablet 1 - 2 tab PO Q4H PRN (Reason: pain) 5 Days Qty: 20 0RF No Action cholecalciferol (vitamin D3) 125 mcg (5,000 unit) capsule 125 mcg PO DAILY Referrals / Follow Up: Moy Carson MD [Primary Care Provider] - Disposition Disposition (needs filled in before D/C Order can be placed): Home, Self Care
[2022-02-28] MEDS: oxyCODONE 5 MG Tablet PO (10:18)
[2022-02-28] MEDS: Acetaminophen 325 MG Tablet PO (10:19)
== END 2022-02-28 10:41 | disposition home or self-care (01) ==
LOC: SDC 06:07 → AC 06:12
PROVIDERS: Anesthesiology; Surgery; PCP Family Medicine; Referring Provider Obstetrics & Gynecology; Visit Provider Obstetrics & Gynecology
PROC: (CPT 58661; principal; 2022-02-28 07:15)
PROC: (CPT 49585; 2022-02-28 07:15)
DX: Z45.2 Encounter for adjustment and management of vascular access device (principal); C50.411 Malignant neoplasm of upper-outer quadrant of right female breast; K42.9 Umbilical hernia without obstruction or gangrene; Z30.2 Encounter for sterilization; N83.8 Other noninflammatory disorders of ovary, fallopian tube and broad ligament
CPT/HCPCS: 49585; 58661; 36590; 71046; 81025; 88300; 88302; J7120; J2405

== ENCOUNTER → 2022-04-19 | Outpatient (CLI) | payer OTHER, SELFPAY ==
--- NOTE | 2022-04-19 14:51 | ECHODONC_ITS ---
Reason For Study: nonrheumatic mitral valve insufficiency Procedure This was a 2D Doppler, Color Flow transthoracic echocardiogram. Exam performed in department. Left Ventricle Normal LV size. Left ventricular systolic function is normal. The estimated ejection fraction is 60 %. No regional wall motion abnormalities noted. Right Ventricle Normal RV size. Normal systolic function. Atria Normal left atrium. Normal right atrium. Mitral Valve Normal mitral valve. Tricuspid Valve Normal tricuspid valve. Aortic Valve Normal aortic valve. Trisinus/trileaflet aortic valve. Pulmonic Valve Normal pulmonic valve. Great Vessels Normal aortic root. The pulmonary artery is normal size. Normal inferior vena cava. Pericardium/Pleural No pericardial effusion. MMode/2D Measurements & Calculations LVIDd: 4.8 cm IVSd: 0.80 cm Ao root diam: 2.3 cm LVIDs: 3.2 cm LVPWd: 0.89 cm RVDd: 3.2 cm FS: 33.1 % LAV(MOD-bp): 53.5 ml LA A4 area: 17.8 cm2 LA dimension(2D): 3.4 cm LAV(MOD-bp) Indexed: 31.5 ml/m2 LAV(MOD-sp2): 51.2 ml LAV(MOD-sp4): 50.6 ml RA A4 area: 12.7 cm2 Time Measurements MV dec time: 0.30 sec Doppler Measurements & Calculations MV E max dorian: 100.2 cm/sec Lat Peak E' Dorian: 20.9 cm/sec Med Peak E' Dorian: 13.5 cm/sec MV A max dorian: 42.5 cm/sec E/E' lat: 4.8 E/E' med: 7.4 MV E/A: 2.4 MV dec slope: 329.6 cm/sec2 Ao V2 max: 155.9 cm/sec LV V1 max: 123.3 cm/sec Ao max P.7 mmHg LV V1 max P.1 mmHg Ao V2 mean: 112.6 cm/sec LV V1 mean P.4 mmHg Ao mean P.7 mmHg LV V1 mean: 86.6 cm/sec Ao V2 VTI: 36.1 cm LV V1 VTI: 27.2 cm PA V2 max: 130.2 cm/sec TR max dorian: 216.9 cm/sec PA V2 mean: 94.5 cm/sec TR max P.8 mmHg ECHO/ONC Echo Complete Interpretation Summary Normal LV size. Left ventricular systolic function is normal. The estimated ejection fraction is 60 %. The global longitudinal strain is normal. The global longitudinal strain = -21. 8 % (normal). Compared to previous study, the left ventricular systolic function has improved .. The global longitudinal strain has improved. Ordering Physician: Óscar Chase Referring Physician: Tera Carson Performed By: Judson, Ciara, RDCS, RVT
== END | disposition home or self-care (01) ==
LOC: CVS 14:50
PROVIDERS: PCP Family Medicine; Referring Provider Internal Medicine Cardiovascular Disease; Visit Provider Internal Medicine Cardiovascular Disease
DX: I34.0 Nonrheumatic mitral (valve) insufficiency (principal)
CPT/HCPCS: 93306; 93356

== ENCOUNTER → 2022-05-11 | Outpatient (CLI) | payer OTHER, SELFPAY ==
--- NOTE | 2022-05-11 08:58 | BI_ITS ---
MAMMOGRAPHY - BILATERAL DIAGNOSTIC REASON FOR EXAM: Female, 26 years old. Left breast lump at the 12 o''clock position. Right breast lump at the lumpectomy site. PERTINENT HISTORY: Personal history of breast cancer. Prior lumpectomy in the upper deep lateral aspect of the right breast. TECHNIQUE: Digital bilateral breast miguel (3D mammographic acquisition) in the CC and MLO projections. 2-D mediolateral oblique (MLO) and craniocaudad (CC) views of both breasts were obtained. CAD: Full Field Digital Mammography with Computer Added Detection was performed. COMPARISON: Comparison is made with prior outside examination dated 06/07/2021 FINDINGS: Breast Composition: The breasts are extremely dense, which lowers the sensitivity of mammography. There are no dominant masses or suspicious calcifications. The patient is status post lumpectomy in the upper lateral aspect of the right breast with resultant postoperative scarring. Surgical clips are seen at that site. No other significant abnormalities are identified. There has been no significant change since the prior study. BI/DIAG MAMM W/CAD, BILAT IMPRESSION: Stable bilateral diagnostic mammogram. With the patient''s history of bilateral breast lumps, correlation with targeted ultrasound is recommended. ASSESSMENT CATEGORY: BIRADS Category 0: Incomplete. Need additional imaging evaluation. A letter regarding these results will be sent to the patient by the facility within 30 days. Approximately 10% of breast cancers are not detected by mammography. A normal mammogram should not delay biopsy of a clinically suspicious abnormality. Electronically Signed: Cosme Alford MD at 10:54 EST ,
--- NOTE | 2022-05-11 10:02 | US_ITS ---
STUDY: ULTRASOUND BREAST - RIGHT REASON FOR EXAM: Female, 26 years old. Palpable lump in the right breast. TECHNIQUE: Axial and longitudinal images of the RIGHT breast were performed with a high resolution ultrasound transducer. # OF IMAGES: 67 COMPARISON: Comparison is made with prior mammogram done earlier today. FINDINGS: RIGHT Breast: Targeted ultrasound of the upper-outer quadrant of the right breast was examined. There is a 1.3 cm x 0.8 cm isoechoic/hypoechoic nodule at the 10 o''clock percent of breast at 6 cm from nipple. This is just superior to the lumpectomy site. IMPRESSION: 1.3 cm x 1.2 cm x 0.0 cm hypoechoic/isoechoic well-defined nodule at the 10 o''clock axis of the breast at 6 cm from nipple. This may represent postoperative change although biopsy is recommended. ASSESSMENT CATEGORY: BIRADS Category 4: Suspicious - Biopsy Should Be Considered. A letter regarding these results will be sent to the patient by the facility within 30 days. Electronically Signed: Cosme Alford MD at 11:02 EST , STUDY: ULTRASOUND BREAST - LEFT REASON FOR EXAM: Female, 26 years old. Palpable lump left breast. TECHNIQUE: Axial and longitudinal images of the LEFT breast were performed with a high resolution ultrasound transducer. # OF IMAGES: 67 COMPARISON: Comparison is made with prior mammogram done earlier today. FINDINGS: LEFT Breast: The upper half of the left breast was examined. There is heterogeneous fibroglandular tissue. No sonographic abnormality is seen. US/Breast Limited Unilateral IMPRESSION: No sonographic abnormality is seen. ASSESSMENT CATEGORY: BIRADS Category 2: Benign. A letter regarding these results will be sent to the patient by the facility within 30 days. Electronically Signed: Cosme Alford MD at 11:03 EST ,
== END | disposition home or self-care (01) ==
LOC: OPBI 08:56
PROVIDERS: PCP Family Medicine; Visit Provider Nurse Practitioner Family
DX: Z85.3 Personal history of malignant neoplasm of breast (principal); R92.2 Inconclusive mammogram; N64.4 Mastodynia; N64.59 Other signs and symptoms in breast
CPT/HCPCS: 76642; 77062; 77066; G0279

== ENCOUNTER → 2022-05-12 | Outpatient (CLI) | payer OTHER, SELFPAY ==
--- NOTE | 2022-05-12 15:15 | BRBX_PTH ---
PATIENT: SUGEY BLACK LOC: [facility] U#:[id number] AGE/SX: 26/F ROOM: RE05/12/[address]: Dr. Jared Scott MD : 1995 BED: DIS: 05/12/2022 SPEC #: [id number] RECD: 05/12/22 15:57 STATUS: PAYAL REQ #: [id number] REE: 05/12/22 15:[address]: Jared Scott DEPT: SURGICAL PATHOLOGY RECD BY: Yadira Bradley ENTERED: 05/13/22 13:08 SP TYPE: BREAST BX OTHR DR: MD Dr. Paz Coyle MD Tissues: Right breast, NOS Procedures: Surgery Specimen Level IV HEADER OPERATION: Ultrasound-guided needle core biopsy right breast PRE-OP DIAGNOSIS: Right breast lump TISSUE SUBMITTED: Right breast biopsy MICROSCOPIC DIAGNOSIS Right breast, ultrasound-guided needle core biopsy: Suggestive of hyalinized fibroadenoma. Focal fat necrosis, histiocytic reaction and foreign body giant cell reaction. Negative for atypia or malignancy. See comment. TASHI:lorrie 05/16/2022 COMMENT Correlation with clinical, radiologic findings and appropriate follow up are necessary. MICROSCOPIC DESCRIPTION Slides are reviewed. GROSS DESCRIPTION Received in fixative is one container labeled with the patient's name and designated right breast biopsy. The specimen consists of multiple irregular and elongated fragments of reis tissue that in aggregate measure 1.3 x 0.6 x 0.1 cm. The specimen is totally submitted in one cassette. / AM:lorrie 05/13/2022 TC:5 CPT: 24871 ADDENDUM ADDENDUM ADDENDUM ADDENDUM ADDENDUM ADDENDUM ADDENDUM ADDENDUM ADDENDUM ADDENDUM ADDENDUM 06/16/2022 09:25 ADDENDUM 06/16/2022 09:25 ADDENDUM 06/16/2022 09:25 ADDENDUM 06/16/2022 09:25 ADDENDUM 06/16/2022 09:25 This addendum is added to incorporate an outside pathology consultation report. The case was examined at [facility] (#[id number]) and the following diagnosis was rendered. Right breast, ultrasound-guided needle core biopsy: Fat necrosis, giant cell reaction and focal dense stromal fibrosis. Negative for atypia or malignancy. Please see complete above mentioned consultation report in EMR
== END | disposition home or self-care (01) ==
LOC: LABSPEC 16:06
PROVIDERS: PCP Family Medicine; Referring Provider Surgery; Visit Provider Surgery
DX: N63.10 Unspecified lump in the right breast, unspecified quadrant (principal)
CPT/HCPCS: 88305

== ENCOUNTER → 2022-08-02 | Outpatient (CLI) | payer OTHER, SELFPAY ==
--- NOTE | 2022-08-02 07:42 | US_ITS ---
STUDY: ULTRASOUND BREAST - RIGHT REASON FOR EXAM: Female, 26 years old. Palpable lump in the right breast. The patient is status post lumpectomy in the upper lateral aspect of the right breast. TECHNIQUE: Axial and longitudinal images of the RIGHT breast were performed with a high resolution ultrasound transducer. # OF IMAGES: 42 COMPARISON: Comparison is made with prior mammogram dated May 11, 2022 and prior sonogram of the right breast dated May 11, 2022. FINDINGS: RIGHT Breast: The palpable lump is at the 11:00 position of the breast at 10 cm from nipple. There is prominent fibroglandular tissue. No solid or cystic masses seen. Stable appearance of the postlumpectomy site. US/Breast Limited Unilateral IMPRESSION: No new abnormality is seen. Status post lumpectomy at the 10:00 position of the breast. ASSESSMENT CATEGORY: BIRADS Category 2: Benign. A letter regarding these results will be sent to the patient by the facility within 30 days. Electronically Signed: Cosme Alford MD at 15:04 EST ,
== END | disposition home or self-care (01) ==
LOC: OPUS 07:41
PROVIDERS: PCP Family Medicine; Visit Provider Surgery
DX: N63.11 Unspecified lump in the right breast, upper outer quadrant (principal); Z85.3 Personal history of malignant neoplasm of breast
CPT/HCPCS: 76642

== ENCOUNTER → 2022-11-18 | Outpatient (CLI) | payer OTHER, SELFPAY ==
--- NOTE | 2022-11-18 07:49 | ECHODONC_ITS ---
Reason For Study: Non Rheumatic MR Procedure This was a 2D Doppler, Color Flow transthoracic echocardiogram. Myocardial strain analysis was performed in this exam to aid in the assessment of cardiac function. Exam performed in department. Left Ventricle Normal LV size. Left ventricular systolic function is normal. The estimated ejection fraction is 60 %. No regional wall motion abnormalities noted. Right Ventricle Normal RV size. Normal systolic function. Atria Normal left atrium. Normal right atrium. Mitral Valve Normal mitral valve. Mild (1+) eccentric mitral valve insufficiency. Tricuspid Valve Normal tricuspid valve. Aortic Valve Trisinus/trileaflet aortic valve. Pulmonic Valve Normal pulmonic valve. Great Vessels Normal aortic root. The pulmonary artery is normal size. Inferior vena cava collapse with respiration. Pericardium/Pleural No pericardial effusion. MMode/2D Measurements & Calculations LVIDd: 4.5 cm IVSd: 0.65 cm Ao root diam: 2.4 cm LVIDs: 3.0 cm LVPWd: 0.67 cm LA dimension: 3.0 cm RVDd: 3.4 cm FS: 33.1 % LAV(MOD-bp): 51.2 ml LVAd ap4: 29.2 cm2 SV(MOD-sp4): 49.2 ml LAV(MOD-bp) Indexed: 32.3 ml/m2 LVLd ap4: 8.1 cm LAV(MOD-sp2): 49.0 ml EDV(MOD-sp4): 87.4 ml LAV(MOD-sp4): 53.5 ml EDV(sp4-el): 89.6 ml LVAs ap4: 17.2 cm2 LVLs ap4: 6.5 cm ESV(MOD-sp4): 38.2 ml ESV(sp4-el): 38.3 ml EF(MOD-sp4): 56.3 % EF(sp4-el): 57.3 % SV(sp4-el): 51.3 ml LA A4 area: 18.9 cm2 RA A4 area: 14.1 cm2 Time Measurements MV dec time: 0.16 sec Doppler Measurements & Calculations MV E max dorian: 86.8 cm/sec Lat Peak E' Dorian: 24.5 cm/sec Med Peak E' Dorian: 16.0 cm/sec MV A max dorian: 53.6 cm/sec E/E' lat: 3.5 E/E' med: 5.4 MV E/A: 1.6 MV V2 max: 102.0 cm/sec MV P1/2t max dorian: 102.8 cm/sec Ao V2 max: 133.9 cm/sec MV max P.2 mmHg MV P1/2t: 68.8 msec Ao max P.2 mmHg MV V2 mean: 39.6 cm/sec Ao V2 mean: 93.4 cm/sec MV mean P.89 mmHg MV dec slope: 437.8 cm/sec2 Ao mean P.0 mmHg MV V2 VTI: 35.3 cm MVA(P1/2t): 3.2 cm2 Ao V2 VTI: 32.2 cm AV (velocity ratio): 0.75 LV V1 max: 101.6 cm/sec MR max dorian: 491.8 cm/sec PA V2 max: 94.8 cm/sec LV V1 max P.1 mmHg MR max P.7 mmHg PA V2 mean: 66.9 cm/sec LV V1 mean P.4 mmHg MR mean dorian: 383.5 cm/sec LV V1 mean: 73.0 cm/sec MR mean P.1 mmHg LV V1 VTI: 24.0 cm MR VTI: 184.6 cm TR max dorian: 208.1 cm/sec TR max P.3 mmHg ECHO/ONC Echo Complete Interpretation Summary Normal LV size. Left ventricular systolic function is normal. The estimated ejection fraction is 60 %. Mild (1+) eccentric mitral valve insufficiency. The global longitudinal strain is normal. The global longitudinal strain = -18 % (normal). Ordering Physician: Óscar Chase Referring Physician: Tera Carson MD Performed By: Efren Gibson RCS
== END | disposition home or self-care (01) ==
LOC: CVS 07:48
PROVIDERS: PCP Family Medicine; Referring Provider Internal Medicine Cardiovascular Disease; Visit Provider Internal Medicine Cardiovascular Disease
DX: I34.0 Nonrheumatic mitral (valve) insufficiency (principal)
CPT/HCPCS: 93306; 93356

== ENCOUNTER → 2023-03-24 | Outpatient (CLI) | payer OTHER, SELFPAY ==
[2023-03-24 12:12] LABS: NATERA MAILED SPECIMEN
[2023-03-31 16:08] LABS: HPV Reflexed? NOT INDICATED
== END | disposition home or self-care (01) ==
PROVIDERS: Obstetrics & Gynecology; PCP Family Medicine; Referring Provider Obstetrics & Gynecology; Visit Provider Obstetrics & Gynecology
DX: Z12.4 Encounter for screening for malignant neoplasm of cervix (principal)
CPT/HCPCS: 88175; G0145

== ENCOUNTER → 2023-04-06 | Outpatient (CLI) | payer OTHER, SELFPAY ==
--- NOTE | 2023-04-06 11:27 | US_ITS ---
EXAM: US SOFT TISSUES OF THE NECK CLINICAL INDICATION: Z17.1 Estrogen receptor negative status ER- TECHNIQUE: Real-time ultrasound scan of the soft tissues of the neck with image documentation. COMPARISON: No relevant prior studies available. FINDINGS: SOFT TISSUES: Images were obtained of the right neck in the region of palpable abnormality. There is an anechoic structure that measures 0.4 x 0.4 x 0.4 cm abutting the submandibular gland compatible with a cyst. No abscess. No foreign body. LYMPH NODES: Unremarkable as visualized. US/Head/Neck Soft Tissue IMPRESSION: Small cyst abutting the right submandibular gland. Electronically Signed: Pb Dawson MD at 23:23 EST ,
== END | disposition home or self-care (01) ==
LOC: US 11:25
PROVIDERS: PCP Family Medicine; Referring Provider Hospitalist; Visit Provider Hospitalist
DX: C50.911 Malignant neoplasm of unspecified site of right female breast (principal); Z17.1 Estrogen receptor negative status [ER-]
CPT/HCPCS: 76536

== ENCOUNTER → 2023-08-18 | Outpatient (CLI) | payer OTHER, SELFPAY ==
--- NOTE | 2023-08-18 06:51 | CT_ITS ---
STUDY: CT SOFT TISSUE NECK WITH CONTRAST REASON FOR EXAM: Female, 27 years old. Localized swelling, mass and lump, neck RADIATION DOSAGE (If Supplied By Facility): CTDIvol = ( 12.73 ) mGy, DLP = ( 378.53 ) mGycm TECHNIQUE: The patient was scanned in a multi-detector CT scanner. High resolution transaxial imaging was performed following intravenous administration of IV 100mL Isovue-370. Sagittal and coronal images were reconstructed. Individualized dose optimization techniques were used for this CT. COMPARISON: None. FINDINGS: Normal bilateral parotid glands. Normal bilateral dealer account manager spaces. Normal bilateral parapharyngeal spaces. Normal bilateral carotid spaces. Normal bilateral sublingual and submandibular glands and spaces. Normal visualized nasopharynx. Normal retropharyngeal space. Normal perivertebral space. Normal visualized bilateral faucial tonsils. The visualized tongue, tongue base and oropharynx are normal. The visualized cervical lymph nodes (levels I-) are within normal size limits, and maintain normal morphology. There is no demonstrated solid or cystic mass lesion. There is no abnormal contrast enhancement. Normal epiglottis, bilateral vallecula and hypopharynx. The pre-epiglottic and paraglottic adipose spaces are normal. Normal visualized bilateral piriform sinuses, aryepiglottic folds, vocal cords, and arytenoid-cricoid articulations. Normal subglottic trachea. Normal bilateral lobes of the thyroid gland. Normal visualized pulmonary apices. Normal visualized paranasal sinuses. Normal visualized cervical spine. CT/Soft Tissue Neck WITH Contrast IMPRESSION: Normal enhanced CT examination of the soft tissues of the neck. Electronically Signed: Cosme Alford MD at 13:42 EDT ,
== END | disposition home or self-care (01) ==
LOC: CT 06:49
PROVIDERS: PCP Family Medicine; Referring Provider Otolaryngology; Visit Provider Otolaryngology
DX: R22.1 Localized swelling, mass and lump, neck (principal)
CPT/HCPCS: 70491

== ENCOUNTER → 2023-09-01 | Outpatient (CLI) | payer OTHER, SELFPAY ==
[2023-09-01 11:17] LABS: Vitamin B12 1327 pg/mL (211-911)
[2023-09-01 11:42] LABS: Estradiol 84.4 pg/mL; Follicle Stimulating Hormone 3.1 mIU/mL; Luteinizing Hormone 6.2 mIU/mL; T4 Free Direct 1.07 ng/dL (0.76-1.46); Thyroid Stim Hormone (TSH) 1.05 uIU/mL (0.358-3.74)
[2023-09-08 03:07] LABS: Testosterone Free 0.4 pg/mL (0.0-4.2)
== END | disposition home or self-care (01) ==
LOC: PAVLAB 10:44
PROVIDERS: PCP Family Medicine; Referring Provider Obstetrics & Gynecology; Visit Provider Obstetrics & Gynecology
DX: R53.83 Other fatigue (principal); R68.82 Decreased libido
CPT/HCPCS: 36415; 82607; 82670; 83001; 83002; 84402; 84403; 84439; 84443

== ENCOUNTER → 2023-09-13 | Outpatient (CLI) | payer OTHER, SELFPAY ==
--- NOTE | 2023-09-13 15:51 | US_ITS ---
INDICATION: Pelvic Pain EXAMINATION: Ultrasound US Transvaginal Non-OB TECHNIQUE: Transvaginal (for optimal evaluation of the adnexa) pelvic ultrasound was performed. Grayscale, spectral waveform, and color flow Doppler evaluation of the adnexa. COMPARISON: No relevant prior comparison study available FINDINGS: UTERUS: Retroverted. The uterus measures 7.7 x 5.6 x 4.4 cm. There is no uterine mass. There is a nabothian cyst in the cervix. The endometrial stripe measures 6 mm in AP diameter which is within normal limits. RIGHT OVARY: 3.9 x 2 x 1.4 cm. Non-enlarged, normal echogenicity. There is normal arterial inflow and venous outflow present in the right ovary. LEFT OVARY: 3.1 x 1.9 x 1.3 cm. Non-enlarged, normal echogenicity. There is normal arterial inflow and venous outflow present in the left ovary. FREE FLUID: There is mild free fluid in the cul-de-sac which could be physiologic. US/Transvaginal Non- IMPRESSION: Unremarkable pelvic ultrasound. Electronically Signed: Kurt Cross MD at 9:40 EDT ,
== END | disposition home or self-care (01) ==
LOC: US 15:50
PROVIDERS: PCP Family Medicine; Referring Provider Obstetrics & Gynecology; Visit Provider Obstetrics & Gynecology
DX: R10.2 Pelvic and perineal pain (principal)
CPT/HCPCS: 76830

== ENCOUNTER → 2023-09-27 | Outpatient (CLI) | payer OTHER, SELFPAY ==
[2023-09-27 09:11] LABS: Vitamin D,25 Hydroxy 53.7 ng/mL
== END | disposition home or self-care (01) ==
PROVIDERS: PCP Family Medicine; Referring Provider Hospitalist; Visit Provider Hospitalist
DX: R53.0 Neoplastic (malignant) related fatigue (principal)
CPT/HCPCS: 36415; 82306

== ENCOUNTER → 2024-01-01 | Outpatient (CLI) | payer OTHER, SELFPAY | END | disposition home or self-care (01) | PROVIDERS: PCP Family Medicine; Referring Provider Hospitalist; Visit Provider Hospitalist | DX: C50.911 Malignant neoplasm of unspecified site of right female breast (principal) ==

== ENCOUNTER → 2024-01-22 | Outpatient (CLI) | payer OTHER, SELFPAY ==
--- NOTE | 2024-01-22 15:45 | MRI_ITS ---
STUDY: MRI BRAIN WITH AND WITHOUT CONTRAST REASON FOR EXAM: Female, 28 years old. NEW ONSET HEADACHE/DIZZINESS, H/O BREAST CANCER TECHNIQUE: Standardized multiplanar fat and water weighted pulse sequences were obtained. IV 12cc Clariscan was administered for the contrast portion of the examination. COMPARISON: None. FINDINGS: Normal size of the ventricles and extra-axial spaces for the patient''s age. Normal white matter tracts of the supratentorial brain. There is no evidence for recent intracranial ischemia or other cause of cytotoxic edema on diffusion weighted imaging (DWI). Normal T2* images of the brain without demonstrated susceptibility artifact. There is no demonstrated hemosiderin stain. Normal bilateral basal ganglia. Normal thalami. There is no extra-axial fluid accumulation. Normal flow voids within the major intracranial circulation suggesting patency by spin echo criteria. Normal venous enhancement. There is no enhancing intra-axial or extra-axial abnormality. Normal sella turcica, pituitary gland, infundibular stalk, optic chiasm and hypothalamus. Normal tectal plate and pineal gland. Normal midbrain, vijay and medulla. Normal cerebellum. Normal basal cisterns. Normal bilateral temporal bones. Normal bilateral internal auditory canals. No demonstrated orbital abnormality, within the constraints of a routine brain study. Normal visualized paranasal sinuses. Normal calvarium and skull base. Normal visualized soft tissue structures. Normal visualized upper cervical spine. MRI/Brain W/WO Contrast IMPRESSION: Normal unenhanced and enhanced MRI of the brain. Electronically Signed: Michael Bean MD at 9:50 EDT ,
== END | disposition home or self-care (01) ==
LOC: MRI 15:37
PROVIDERS: PCP Family Medicine; Referring Provider Registered Nurse; Visit Provider Registered Nurse
DX: C50.911 Malignant neoplasm of unspecified site of right female breast (principal); Z17.1 Estrogen receptor negative status [ER-]
CPT/HCPCS: 70553; A9575; A4216

== ENCOUNTER → 2024-04-08 | Outpatient (CLI) | payer OTHER, SELFPAY | END | disposition home or self-care (01) | PROVIDERS: PCP Family Medicine; Referring Provider Hospitalist; Visit Provider Hospitalist | DX: C50.911 Malignant neoplasm of unspecified site of right female breast (principal) ==

== ENCOUNTER → 2024-12-18 | Outpatient (CLI) | payer OTHER, SELFPAY ==
[2024-12-23 14:08] LABS: HPV APTIMA, High Risk Negative (Negative)
== END | disposition home or self-care (01) ==
LOC: LABSPEC 16:13
PROVIDERS: PCP Family Medicine; Visit Provider Obstetrics & Gynecology
DX: Z12.4 Encounter for screening for malignant neoplasm of cervix (principal)
CPT/HCPCS: 87624; 88175; G0145

== ENCOUNTER → 2025-01-08 | Outpatient (CLI) | payer OTHER, SELFPAY ==
--- NOTE | 2025-01-08 16:11 | US_ITS ---
PROCEDURE: PELVIC W/ TRANSVAGINAL REASON FOR EXAM: PELVIC PAIN TECHNIQUE: PELVIC W/ TRANSVAGINAL COMPARISON: Prior study dated September 13, 2023. FINDINGS: Measurements: Uterus: 8.5 cm x 5.5 cm x 4.8 cm with a volume of 115.79 mL Endometrial Thickness: 7.5 mm. It is trilaminar in appearance. Right Ovary: 4 cm x 2.6 cm x 1.6 cm with a volume of 8.59 mL. Left Ovary: 3 cm x 2.3 cm x 1.2 cm with a volume of 4.38 mL. TRANSABDOMINAL: Uterus: Heterogeneous myometrium suggestive of fibroid change although no focal fibroid is seen. Endometrium: Unremarkable. Right ovary: Complex follicle measuring 1.7 cm 1.2 cm 1.3 cm is seen in the right ovary. Left ovary: Normal size and echotexture. Other: No large pelvic mass identified. Transvaginal sonography was performed to better visualize the endometrium. TRANSVAGINAL: Uterus: Retroverted. Fibroid change. Endometrium: Normal echotexture. Right ovary: Dominant follicle. Left ovary: Normal size and echotexture. Other adnexal findings: None. Cul-de-sac: No free intraperitoneal fluid identified. Tenderness: No tenderness US/Pelvic w/ Transvaginal IMPRESSION: Fibroid change of the uterus. Dominant follicle in the right ovary. Reading Location: [place] [id number]
== END | disposition home or self-care (01) ==
LOC: US 16:10
PROVIDERS: PCP Family Medicine; Referring Provider Obstetrics & Gynecology; Visit Provider Obstetrics & Gynecology
DX: N94.10 Unspecified dyspareunia (principal); R10.2 Pelvic and perineal pain
CPT/HCPCS: 76830; 76856

== ENCOUNTER → 2025-02-21 | Outpatient (CLI) | payer OTHER, SELFPAY ==
--- NOTE | 2025-02-21 13:38 | ECHODONC_ITS ---
Reason For Study Reason For Study: ANTINEOPLASTIC CHEMO Procedure This was a 2D Doppler, Color Flow transthoracic echocardiogram. Myocardial strain analysis was performed in this exam to aid in the assessment of cardiac function. Exam performed in department. Left Ventricle Normal LV size. Left ventricular systolic function is normal. The left ventricular ejection fraction is 60 %. The global longitudinal strain = -18.9 % (normal). The prior global longitudinal strain was -18 % . Normal diastololic function. No regional wall motion abnormalities noted. Right Ventricle Normal RV size. Normal systolic function. Atria Normal left atrium. Normal right atrium. Mitral Valve The mitral valve is structurally normal. No prolapse or stenosis seen. Mild (1+) mitral valve insufficiency. Tricuspid Valve Normal tricuspid valve. Trivial tricuspid valve insufficiency. Pulmonary artery systolic pressure is 25 mmHg. Aortic Valve Trisinus/trileaflet aortic valve. Pulmonic Valve Normal pulmonic valve. Trivial pulmonic valve insufficiency. Great Vessels Normal sized aortic root. Pericardium/Pleural No pericardial effusion. MMode/2D Measurements & Calculations LVIDd: 4.1 cm IVSd: 0.73 cm LVOT diam: 2.0 cm LVIDs: 2.7 cm LVPWd: 0.93 cm LVOT area: 3.2 cm2 RVDd: 2.9 cm FS: 34.2 % Ao root diam: 2.5 cm LAV(MOD-bp): 46.9 ml LVAd ap4: 28.3 cm2 LAV(MOD-bp) Indexed: 28.9 ml/m2 LVLd ap4: 8.5 cm LAV(MOD-sp2): 45.7 ml EDV(MOD-sp4): 80.0 ml LAV(MOD-sp4): 39.8 ml EDV(sp4-el): 80.1 ml LVAs ap4: 17.0 cm2 LVLs ap4: 7.3 cm ESV(MOD-sp4): 33.8 ml ESV(sp4-el): 33.7 ml EF(MOD-sp4): 57.8 % EF(sp4-el): 58.0 % SV(MOD-sp4): 46.3 ml SV(sp4-el): 46.5 ml LA A4 area: 16.0 cm2 SI(MOD-sp4): 28.5 ml/m2 LA dimension(2D): 3.0 cm RA A4 area: 10.5 cm2 Time Measurements MV dec time: 0.11 sec Doppler Measurements & Calculations MV E max dorian: 82.7 cm/sec Lat Peak E' Dorian: 21.6 cm/sec Med Peak E' Dorian: 13.7 cm/sec MV A max dorian: 62.3 cm/sec E/E' lat: 3.8 E/E' med: 6.0 MV E/A: 1.3 MV V2 max: 104.5 cm/sec Ao V2 max: 127.1 cm/sec MV max P.4 mmHg MV dec slope: 756.8 cm/sec2 Ao max P.5 mmHg MV V2 mean: 62.6 cm/sec Ao V2 mean: 92.0 cm/sec MV mean P.8 mmHg Ao mean P.8 mmHg MV V2 VTI: 30.7 cm Ao V2 VTI: 31.3 cm AV (velocity ratio): 0.81 MVA(VTI): 2.6 cm2 JOSE ALBERTO(I,D): 2.6 cm2 JOSE ALBERTO(V,D): 2.7 cm2 LV V1 max: 107.7 cm/sec SV(LVOT): 80.2 ml PA V2 max: 99.1 cm/sec LV V1 max P.6 mmHg PA V2 mean: 74.8 cm/sec LV V1 mean P.8 mmHg LV V1 mean: 78.8 cm/sec LV V1 VTI: 25.4 cm TR max dorian: 204.5 cm/sec TR max P.7 mmHg ECHO/ONC Echo Complete Interpretation Summary The left ventricular ejection fraction is 60 %. Normal LV size. Left ventricular systolic function is normal. Mild (1+) mitral valve insufficiency. The global longitudinal strain = -18.9 % (normal). Compared to prior study, there is no significant change. Ordering Physician: Óscar Chase Referring Physician: Óscar Chase Performed By: Klaudia Carreno RCS
--- NOTE | 2025-02-21 13:50 | EKG12_ITS ---
Test Reason : CARDIOMYOPATHY/CHEMO Blood Pressure : */* mmHG Vent. Rate : 59 BPM Atrial Rate : 59 BPM P-R Int : 150 ms QRS Dur : 86 ms QT Int : 426 ms P-R-T Axes : 62 63 55 degrees QTcB Int : 421 ms Sinus bradycardia with sinus arrhythmia Otherwise normal ECG Confirmed by TASHIA LUNA, ÓSCAR ([id number]), staff editor MEREDITH ABREU ([id number]) on 02/24/2025 8:57:51 AM Referred By: Óscar Chase Confirmed By: ÓSCAR CHASE MD
== END | disposition home or self-care (01) ==
LOC: CVS 13:36
PROVIDERS: PCP Family Medicine; Referring Provider Internal Medicine Cardiovascular Disease; Visit Provider Internal Medicine Cardiovascular Disease
DX: I34.0 Nonrheumatic mitral (valve) insufficiency (principal)
CPT/HCPCS: 93005; 93306; 93356

== ENCOUNTER → 2025-05-15 | Outpatient (CLI) | payer OTHER, SELFPAY | END | disposition home or self-care (01) | LOC: PAVLAB 08:32 | PROVIDERS: PCP Family Medicine; Referring Provider Hospitalist; Visit Provider Hospitalist | DX: C50.919 Malignant neoplasm of unspecified site of unspecified female breast (principal) ==